=== PATIENT | male | born 1950 | race Caucasian/White ===

== ENCOUNTER 2020-05-05 00:35 | Outpatient (CLI) | payer MEDICARE, SELFPAY ==
[2020-05-05 17:56] LABS: SARS-CoV-2 RNA PCR Negative
== END 2020-05-05 00:36 | disposition home or self-care (01) ==
LOC: ANHCOVIDDT 00:35
PROVIDERS: PCP Internal Medicine; Visit Provider Internal Medicine Gastroenterology
DX: Z01.818 Encounter for other preprocedural examination (principal); Z11.59 Encounter for screening for other viral diseases
CPT/HCPCS: 87635; C9803; U0003

== ENCOUNTER 2020-05-07 02:06 | Day surgery (SDC) | payer MEDICARE, SELFPAY ==
[2020-05-01 09:55] VITALS: BMI 27.9
[2020-05-07 06:24] VITALS: BP 124/78; PULSE 68; RESP 17; TEMP 36.6; O2SAT 99; BMI 27.9
[2020-05-07] MEDS: LACTATED RINGERS 1,000 ML 150 ML IV CONT (06:28)
--- NOTE | 2020-05-07 07:08 | P.HP_ITS ---
History of Present Illness History of Present Illness Consent: Risks, benefits, and alternatives have been discussed and questions answered. Patient agrees to proceed with procedure. Chief complaint: Fam Hx Colon Ca Narrative: Zay Arriaza is a 70 year old W male Referred for screening colonoscopy secondary history of colonic polyps. Last colonoscopy was over 3 years ago at which time multiple small adenomatous polyps were removed. There is no known family history of colon cancer. No interval changes in patient's health [facility] Past Medical History Medical History (Updated 05/07/20 @ 07:11 by Tommy Mills MD) Dyslipidemia Hypertension Spider bite Surgical History Surgical History (Updated 05/07/20 @ 07:11 by Tommy Mills MD) H/O nasal septoplasty H/O right knee surgery Previous back surgery Social History Social History Gender identity (if verbalized by the patient): Male Meds Home Medications and Allergies Home Medications Medication Instructions Recorded Confirmed Type aspirin 81 mg PO DAILY 05/01/20 05/07/20 History atorvastatin 20 mg PO DAILY 05/01/20 05/07/20 History duloxetine 60 mg PO DAILY 05/01/20 05/07/20 History fenofibrate nanocrystallized 145 mg PO DAILY 05/01/20 05/07/20 History hydrochlorothiazide 12.5 mg PO DAILY 05/01/20 05/07/20 History labetalol 200 mg PO DAILY 05/01/20 05/07/20 History Allergies Allergy/AdvReac Type Severity Reaction Status Date / Time No Known Allergies Allergy Mild Verified 05/07/20 06:17 Vital Signs Vital Signs - 24 hr 05/07/20 06:24 Temperature 36.6 C Pulse Rate 68 Respiratory Rate 17 Blood Pressure 124/78 Pulse Oximetry 99 Exam Const: Orientation/consciousness: patient oriented x3 Resp: Auscultation: clear to auscultation bilaterally Cardio: Rate: regular rate Rhythm: regular rhythm Heart sounds: no murmurs GI: GI Palp: Yes Soft to palpation, No Tenderness to palpation present (GI), Yes No hepatosplenomegaly present and No Palpable mass present Auscultation: normal bowel sounds Neuro: General: patient oriented x3 and no focal motor deficits Extrem: General: no pedal edema Assessment and Plan Additional Plan screening colonoscopy secondary history of colonic polyps
--- NOTE | 2020-05-07 07:12 | WPDANESEPPF ---
Anes - Initial Pre Proc Eval Procedure: Operation Date: 05/07/20 07:30 Proposed Procedures p Screening Colonoscopy - Tommy Mills MD Date/Time: 05/07/20 07:12 Surgeon: Tommy Mills MD Pre Op Diagnosis: Fam Hx Colon Ca Patient Data Age: 70 Gender: M Height: 6 ft 1 in Weight: 96 kg Last Vital Signs Temp 97.9 F 05/07/20 06:24 Pulse 68 05/07/20 06:24 Resp 17 05/07/20 06:24 BP 124/78 05/07/20 06:24 Pulse Ox 99 05/07/20 06:24 Allergies Allergy/AdvReac Type Severity Reaction Status Date / Time No Known Allergies Allergy Mild Verified 05/07/20 06:17 Home Medications Medication Instructions Recorded Confirmed Type aspirin 81 mg PO DAILY 05/01/20 05/07/20 History atorvastatin 20 mg PO DAILY 05/01/20 05/07/20 History duloxetine 60 mg PO DAILY 05/01/20 05/07/20 History fenofibrate nanocrystallized 145 mg PO DAILY 05/01/20 05/07/20 History hydrochlorothiazide 12.5 mg PO DAILY 05/01/20 05/07/20 History labetalol 200 mg PO DAILY 05/01/20 05/07/20 History Patient hx anesthesia problems: none Family hx anesthesia problems: none PMFSH Past Medical History Medical History (Updated 05/07/20 @ 07:11 by Tommy Mills MD) Dyslipidemia Hypertension Spider bite Surgical History Surgical History (Updated 05/07/20 @ 07:11 by Tommy Mills MD) H/O nasal septoplasty H/O right knee surgery Previous back surgery Social History Social History Gender identity (if verbalized by the patient): Male Anes - Eval Final PreProcedure Day of Procedure 05/07/20 07:12 Patient weight: overweight Heart: regular rate and rhythm Lungs: clear to auscultation Airway: Mallampati scale Last oral intake: >/= 8 hours ASA classification: III Emergent: no Anesthetic plan: proceed Anesthesia type and monitoring: general GIVS and standard monitoring Informed Consent: The patient's anesthetic plan and its attendant risks and benefits were discussed with the patient/family/POA. Questions were solicited and answers provided to the satisfaction of the patient/family/POA.
[2020-05-07] MEDS: SIMETHICONE ORAL SUSPENSION 20 MG/0.3 ML 30 ML BOTTLE 0.6 ML IRRIGATION (07:52)
[2020-05-07 07:58] VITALS: BP 117/70; PULSE 68; RESP 16; O2SAT 96
[2020-05-07] MEDS: CENTRAL LINE FLUSH 10 ML XX (08:01)
[2020-05-07 08:08] VITALS: BP 131/80; PULSE 64; RESP 15; O2SAT 100
[2020-05-07 08:18] VITALS: BP 136/83; PULSE 60; RESP 15; O2SAT 100
== END 2020-05-07 08:30 | disposition home or self-care (01) ==
PROVIDERS: PCP Internal Medicine; Visit Provider Internal Medicine Gastroenterology
PROC: 0DJD8ZZ Inspection of Lower Intestinal Tract, Via Natural or Artificial Opening Endoscopic (ICD-10-PCS; CPT 45378; principal; 2020-05-07 07:30)
DX: Z12.11 Encounter for screening for malignant neoplasm of colon (principal); D12.2 Benign neoplasm of ascending colon; K62.1 Rectal polyp; K64.8 Other hemorrhoids; K64.4 Residual hemorrhoidal skin tags; Z80.0 Family history of malignant neoplasm of digestive organs; I10 Essential (primary) hypertension; E78.5 Hyperlipidemia, unspecified; Z79.82 Long term (current) use of aspirin
CPT/HCPCS: 45385; 45381; 88305; J2704; J7120

== ENCOUNTER 2021-08-03 11:24 | Outpatient (CLI) | payer MEDICARE, SELFPAY ==
[2021-08-03 11:47] LABS: Basophils Absolute Auto 0.1 K/mm3 (0.0-0.1); Basophils Percent Auto 0.7 % (0.2-1.2); Eosinophils Absolute Auto 0.1 K/mm3 (0-0.3); Eosinophils Percent Auto 1.4 % (0-4.4); Hematocrit 36.7 % (42.0-52.0); Hemoglobin 11.9 g/dL (14.0-18.0); Immature Granulocyte Absolute 0.02 K/mm3 (0.00-0.031); Immature Granulocyte Percent A 0.3 % (0-0.5); Lymphocytes Absolute Auto 1.75 K/mm3 (0.9-3.2); Lymphocytes Percent Auto 24.2 % (18.3-44.2); Mean Corpuscular HGB Conc 32.4 g/dl (32-36); Mean Corpuscular Hemoglobin 30.3 pg (26-34); Mean Corpuscular Volume 93.4 fl (80-100); Mean Platelet Volume 10.5 fl (7.4-10.4); Monocytes Absolute Auto 0.7 K/mm3 (0.1-0.6); Neutrophils Absolute Auto 4.6 K/mm3 (1.3-6.7); Neutrophils Percent Auto 63.4 % (45.5-73.1); Platelet Count Result 211 k/mm3 (150-375); Red Blood Count 3.93 M/mm3 (4.6-6.20); Red Cell Distribution Width 13.3 % (11.5-14.5); White Blood Count 7.2 K/mm3 (4.5-10.0)
[2021-08-03 12:29] LABS: Alanine Aminotransferase 18 U/L (4-50); Albumin Level 4.6 g/dL (3.5-5.1); Alkaline Phosphatase 50 U/L (38-126); Anion Gap 9 mmol/L (8-16); Aspartate Amino Transferase 30 U/L (17-59); Bilirubin,Total 0.5 mg/dL (0.2-1.3); Blood Urea Nitrogen 24 mg/dL (9-20); Calcium 9.9 mg/dL (8.4-10.2); Carbon Dioxide 27 mmol/L (22-30); Chloride 104 mmol/L (98-107); Estimated Glomerular Filt Rate 60; Glucose 96 mg/dL (65-110); Potassium 4.3 mmol/L (3.4-5.0); Sodium 140 mmol/L (137-145)
[2021-08-03 12:35] LABS: Immunoglobulin A 138 mg/dL (70-400); Immunoglobulin G 738 mg/dL (700-1600); Immunoglobulin M 94 mg/dL (40-230)
[2021-08-03 13:35] LABS: Folic Acid 9.4 ng/mL (2.76->20)
[2021-08-03 16:29] LABS: Iron 81 ug/dL (49-181)
[2021-08-03 16:37] LABS: Percent Iron Saturation 22 % (20-50)
[2021-08-07 04:43] LABS: Kappa\\Lambda Light Chains 1.29 (0.26-1.65); Lambda Light Chain 26.2 mg/L (5.7-26.3)
[2021-08-07 05:59] LABS: Albumin 4.2 g/dL (3.8-4.8); Alpha 1 Globulin 0.3 g/dL (0.2-0.3); Alpha 2 Globulin 0.7 g/dL (0.5-0.9); Beta 1 Globulin 0.5 g/dL (0.4-0.6); Gamma Globulin 0.8 g/dL (0.8-1.7); Protein, Total 6.8 g/dL (6.1-8.1)
== END 2021-08-03 11:25 | disposition home or self-care (01) ==
LOC: ANHLAB 11:26
PROVIDERS: PCP Internal Medicine; Visit Provider Internal Medicine Hematology & Oncology
DX: D64.9 Anemia, unspecified (principal); D72.9 Disorder of white blood cells, unspecified
CPT/HCPCS: 36415; 80053; 82607; 82728; 82746; 82784; 83540; 83550; 83883; 84155; 84165; 85025

== ENCOUNTER 2021-11-15 11:37 | Outpatient (CLI) | payer MEDICARE, SELFPAY ==
[2021-11-15 11:58] LABS: Basophils Percent Auto 0.5 % (0.2-1.2); Eosinophils Absolute Auto 0.1 K/mm3 (0-0.3); Eosinophils Percent Auto 1.3 % (0-4.4); Hematocrit 39.8 % (42.0-52.0); Hemoglobin 12.9 g/dL (14.0-18.0); Immature Granulocyte Absolute 0.01 K/mm3 (0.00-0.031); Immature Granulocyte Percent A 0.1 % (0-0.5); Lymphocytes Absolute Auto 2.06 K/mm3 (0.9-3.2); Lymphocytes Percent Auto 26.1 % (18.3-44.2); Mean Corpuscular HGB Conc 32.4 g/dl (32-36); Mean Corpuscular Hemoglobin 31.1 pg (26-34); Mean Corpuscular Volume 95.9 fl (80-100); Mean Platelet Volume 10.3 fl (7.4-10.4); Monocytes Absolute Auto 0.9 K/mm3 (0.1-0.6); Monocytes Percent Auto 11.3 % (2.6-8.5); Neutrophils Absolute Auto 4.8 K/mm3 (1.3-6.7); Neutrophils Percent Auto 60.7 % (45.5-73.1); Platelet Count Result 185 k/mm3 (150-375); Red Blood Count 4.15 M/mm3 (4.6-6.20); White Blood Count 7.9 K/mm3 (4.5-10.0)
[2021-11-15 13:44] LABS: Iron 90 ug/dL (49-181)
[2021-11-15 13:52] LABS: Anion Gap 6 mmol/L (8-16); Blood Urea Nitrogen 24 mg/dL (9-20); Calcium 9.9 mg/dL (8.4-10.2); Carbon Dioxide 27 mmol/L (22-30); Chloride 102 mmol/L (98-107); Estimated Glomerular Filt Rate > 60; Glucose 102 mg/dL (65-110); Potassium 4.3 mmol/L (3.4-5.0); Sodium 135 mmol/L (137-145)
[2021-11-15 13:55] LABS: Percent Iron Saturation 27 % (20-50)
[2021-11-15 15:00] LABS: Folic Acid 19.1 ng/mL (2.76->20); Vitamin B12 > 1000.0 pg/mL (239-931)
== END 2021-11-15 11:38 | disposition home or self-care (01) ==
LOC: ANHLAB 11:40
PROVIDERS: PCP Internal Medicine; Visit Provider Internal Medicine Hematology & Oncology
DX: D64.9 Anemia, unspecified (principal)
CPT/HCPCS: 36415; 80048; 82607; 82728; 82746; 83540; 83550; 85025

== ENCOUNTER 2023-04-13 17:36 | Emergency (ER) | payer MEDICARE, SELFPAY ==
[2023-04-13] VITALS (9 sets, daily range): BP systolic 104–132; BP diastolic 68–77; PULSE 58–90; RESP 16–18; TEMP 36.2; O2SAT 95–99
--- NOTE | ~2023-04-13 | CT_ITS ---
EXAMINATION: CT abdomen pelvis wo con DATE: 04/13/2023 19:07 INDICATION: Abdominal pain, diarrhea. Recent diagnosis of pancreatitis. TECHNIQUE: Computed tomography (CT) of the abdomen and pelvis was performed without intravenous contr ast. Automated exposure control and iterative reconstruction technique were employed. Exam dose: 509 .92 mGy-cm total exam DLP. COMPARISON: None. FINDINGS: Mild bilateral lower lobe dependent discoid atelectasis or scarring. Normal heart size. No pericardial or pleural effusion. Calcified hepatic and splenic granulomas consistent with old granulomatous disease. No hepatic space- occupying mass lesion is evident. The gallbladder appears unremarkable. No bile duct dilatation. Normal splenic size. There are extensive calcifications throughout the pancreas, consistent with chronic pancreatitis. No pancreatic mass lesion or pancreatic duct dilatation is evident. Normal morphology of the adrenal glands. No renal mass lesion or hydroureteronephrosis. The urinary bladder is unremarkable. Prostate enlargem ent and calcifications. There is atherosclerotic calcification but normal caliber of the abdominal aorta. Celiac and superior mesenteric and renal artery calcifications. No intraperitoneal or retroperitoneal or pelvic mass les ion or adenopathy or ascites is detected. Normal appendix. No bowel obstruction, bowel wall thickening, pneumatosis or intraperitoneal free air is detected. Severe multilevel degenerative disc disease of lumbar spine. Degenerative change of the thoracic spin e. Bilateral hip osteoarthritis. IMPRESSION: Chronic pancreatitis Reviewed, dictated and finalized at [facility]. Reviewed, dictated and finalized at [facility]. IMPRESSION: Chronic pancreatitis
--- NOTE | 2023-04-13 18:25 | PC.NURSE ---
Dr. Lee at bedside to assess pt.
[2023-04-13 18:33] LABS: Basophils Absolute Auto 0.1 K/mm3 (0.0-0.1); Basophils Percent Auto 0.8 % (0.2-1.2); Eosinophils Absolute Auto 0.1 K/mm3 (0-0.3); Eosinophils Percent Auto 1.6 % (0-4.4); Hematocrit 36.6 % (42.0-52.0); Hemoglobin 11.8 g/dL (14.0-18.0); Immature Granulocyte Absolute 0.02 K/mm3 (0.00-0.031); Immature Granulocyte Percent A 0.3 % (0-0.5); Lymphocytes Absolute Auto 1.92 K/mm3 (0.9-3.2); Lymphocytes Percent Auto 26.1 % (18.3-44.2); Mean Corpuscular HGB Conc 32.2 g/dl (32-36); Mean Corpuscular Hemoglobin 30.7 pg (26-34); Mean Corpuscular Volume 95.3 fl (80-100); Mean Platelet Volume 10.5 fl (7.4-10.4); Monocytes Absolute Auto 0.8 K/mm3 (0.1-0.6); Monocytes Percent Auto 10.9 % (2.6-8.5); Neutrophils Absolute Auto 4.5 K/mm3 (1.3-6.7); Neutrophils Percent Auto 60.3 % (45.5-73.1); Platelet Count Result 177 k/mm3 (150-375); Red Blood Count 3.84 M/mm3 (4.6-6.20); Red Cell Distribution Width 13.2 % (11.5-14.5); White Blood Count 7.4 K/mm3 (4.5-10.0)
[2023-04-13 18:43] LABS: Alanine Aminotransferase 36 U/L (6-50); Albumin Level 4.4 g/dL (3.5-5.1); Alkaline Phosphatase 69 U/L (38-126); Anion Gap 6 mmol/L (8-16); Aspartate Amino Transferase 39 U/L (17-59); Bilirubin,Total 0.9 mg/dL (0.2-1.3); Blood Urea Nitrogen 22 mg/dL (9-20); Calcium 9.3 mg/dL (8.4-10.2); Carbon Dioxide 23 mmol/L (22-30); Chloride 107 mmol/L (98-107); Estimated CRCL calculation 73 ml/min; Estimated Glomerular Filt Rate > 60; Glucose 102 mg/dL (65-110); Lipase 96 U/L (23-300); Magnesium 1.9 mg/dL (1.6-2.3); Sodium 136 mmol/L (137-145)
[2023-04-13 18:54] LABS: Appearance Urine Clear (Clear); Bilirubin Urine Negative (Negative); Blood Urine Negative (Negative); Color Urine Yellow (Yellow); Glucose Urine UA Negative (Negative); Ketones Urine Negative (Negative); Leukocyte Esterase Ur Negative LEU/UL (Negative); Nitrate Urine Negative (Negative); Protein Urine Negative (Negative); Specific Grav Ur 1.018 (1.001-1.035); Urobilinogen Urine 0.2 mg/dL (<2.0)
[2023-04-13] MEDS: SODIUM CHLORIDE 0.9% IV 1,000 ML 999 ML IV CONT (19:00)
--- NOTE | 2023-04-13 19:00 | PC.NURSE ---
pt taken to CT at this time
[2023-04-13 19:04] LABS: Add Urine Microscopic? NO
--- NOTE | 2023-04-13 19:12 | ED.RECABL ---
HPI - Recheck/Abnormal Lab/Rx General Chief Complaint: Recheck/Abnormal Lab/Rx Stated Complaint: abn labs Time Seen by Provider: 04/13/23 18:01 Source: patient, RN notes reviewed and old records reviewed Mode of arrival: ambulatory Limitations: no limitations History of Present Illness HPI narrative: This is a 72 year old male who presents for evaluation of possible pancreatitis. Patient states he has been dealing with weeks of diarrhea and lower abdominal pain. He reports having 3 episodes of diarrhea in the morning. He denies vomiting, fever, or chills. He was having intermittent lower abdominal pain but he is not having pain today. He had CT scan at an outside hospital today and he was told he had pancreatitis. He refused to be evaluated at hospital were scan that was done. He denies upper abdominal pain or back pain. He denies alcohol use or history of pancreatitis. Related Data Home Medications Medication Instructions Recorded Confirmed aspirin 81 mg tablet,delayed 81 mg PO DAILY 05/01/20 05/07/20 release atorvastatin 20 mg tablet 20 mg PO DAILY 05/01/20 05/07/20 duloxetine 60 mg capsule,delayed 60 mg PO DAILY 05/01/20 05/07/20 release fenofibrate nanocrystallized 145 145 mg PO DAILY 05/01/20 05/07/20 mg tablet hydrochlorothiazide 12.5 mg tablet 12.5 mg PO DAILY 05/01/20 05/07/20 labetalol 200 mg tablet 200 mg PO DAILY 05/01/20 05/07/20 Allergies Allergy/AdvReac Type Severity Reaction Status Date / Time No Known Allergies Allergy Mild Verified 04/13/23 17:39 Review of Systems Review of Systems: All systems reviewed & are unremarkable except as noted in HPI and below PMFSH Past Medical History Medical History Dyslipidemia Hypertension Spider bite Surgical History Surgical History H/O nasal septoplasty H/O right knee surgery Previous back surgery Social History Social History Gender identity (if verbalized by the patient): Male Exam Const: General: no acute distress and alert Nutritional Appearance: well nourished Orientation/consciousness: patient oriented x3 Limitations: no limitations HENMT: Head: normal to inspection Eyes: EOM: EOMs intact bilaterally Chest: Chest palpation & inspection: normal inspection of the chest Resp: Effort & Inspection: normal respiratory effort Auscultation: clear to auscultation bilaterally Cardio: Rate: regular rate Rhythm: regular rhythm Heart sounds: no murmurs GI: GI Palp: Yes Soft to palpation, No Tenderness to palpation present (GI), No Guarding due to palpation present (GI) and No Rigid due to palpation Auscultation: normal bowel sounds Skin: General skin exam: normal color Rashes: no rashes Wounds: no wounds Neuro: General: patient oriented x3, moves all extremities and CN's II-XI intact bilaterally Extrem: General: normal to inspection Psych: Mental Status: mental status grossly normal Affect: normal affect Attitude: cooperative Course Reevaluation(s) Reevaluation #1: I Discussed with patient CT showing chronic pancreatitis but no acute findings. I recommend follow up with GI for his diarrhea. no fever, no leukocytosis, no colitis on CT. Date: 04/13/23 Time: 20:04 Vital Signs Vital signs: Vital Signs Temperature 97.2 F L 04/13/23 17:37 Pulse Rate 66 04/13/23 17:37 Respiratory Rate 18 04/13/23 17:37 Blood Pressure 104/68 04/13/23 17:37 Pulse Oximetry 99 04/13/23 17:37 Temperature 97.2 F L 04/13/23 17:37 Pulse Rate 58 L 04/13/23 20:25 Respiratory Rate 16 04/13/23 20:25 Blood Pressure 132/72 04/13/23 20:25 Pulse Oximetry 98 04/13/23 20:25 MDM - Recheck/Abnormal Lab/Rx Medical Records Attestation: I reviewed the patient's medical records. Lab Data Attestation: I reviewed the patient's lab results. 04/13/23 18:26
--- NOTE | 2023-04-13 19:12 | PC.NURSE ---
Patient reports given to HUI Ramsay. All questions answered and care of patient assumed.
== END 2023-04-13 20:26 | disposition home or self-care (01) ==
PROVIDERS: Emergency Provider General Practice; PCP Internal Medicine
DX: K86.1 Other chronic pancreatitis (principal); E78.5 Hyperlipidemia, unspecified; I10 Essential (primary) hypertension
CPT/HCPCS: 36415; 74176; 80053; 81003; 83690; 83735; 85025; 96360; 99284; J7030

== ENCOUNTER 2023-06-14 08:06 | Outpatient (NON) | payer MEDICARE, SELFPAY ==
[2023-06-21 22:38] LABS: Pancreatic Elastase, Stool <15 mcg/g
== END 2023-06-14 08:07 | disposition home or self-care (01) ==
LOC: ANHLAB 08:07
PROVIDERS: PCP Internal Medicine; Visit Provider Internal Medicine Gastroenterology
DX: R19.7 Diarrhea, unspecified (principal); R63.4 Abnormal weight loss; K86.1 Other chronic pancreatitis
CPT/HCPCS: 82653

== ENCOUNTER 2023-07-12 15:47 | Outpatient (CLI) | payer MEDICARE, SELFPAY ==
[2023-07-12 16:33] LABS: Basophils Percent Auto 0.5 % (0.2-1.2); Eosinophils Absolute Auto 0.1 K/mm3 (0-0.3); Hematocrit 37.5 % (42.0-52.0); Hemoglobin 12.2 g/dL (14.0-18.0); Immature Granulocyte Absolute 0.03 K/mm3 (0.00-0.031); Immature Granulocyte Percent A 0.4 % (0-0.5); Lymphocytes Absolute Auto 2.17 K/mm3 (0.9-3.2); Lymphocytes Percent Auto 27.5 % (18.3-44.2); Mean Corpuscular HGB Conc 32.5 g/dl (32-36); Mean Corpuscular Hemoglobin 30.3 pg (26-34); Mean Corpuscular Volume 93.3 fl (80-100); Mean Platelet Volume 10.4 fl (7.4-10.4); Monocytes Absolute Auto 1.1 K/mm3 (0.1-0.6); Monocytes Percent Auto 13.5 % (2.6-8.5); Neutrophils Absolute Auto 4.5 K/mm3 (1.3-6.7); Neutrophils Percent Auto 57.1 % (45.5-73.1); Platelet Count Result 256 k/mm3 (150-375); Red Blood Count 4.02 M/mm3 (4.6-6.20); White Blood Count 7.9 K/mm3 (4.5-10.0)
[2023-07-12 16:36] LABS: Appearance Urine Clear (Clear); Bilirubin Urine Negative (Negative); Blood Urine Negative (Negative); Color Urine Yellow (Yellow); Glucose Urine UA 3+ mg/dL (Negative); Ketones Urine Negative (Negative); Leukocyte Esterase Ur Negative LEU/UL (Negative); Nitrate Urine Negative (Negative); Protein Urine Negative (Negative); Specific Grav Ur 1.022 (1.001-1.035); Urobilinogen Urine 0.2 mg/dL (<2.0)
[2023-07-12 16:40] LABS: Add Urine Microscopic? NO
[2023-07-12 16:58] LABS: Alanine Aminotransferase 64 U/L (6-50); Albumin Level 4.8 g/dL (3.5-5.1); Alkaline Phosphatase 71 U/L (38-126); Amylase 86 U/L (30-110); Anion Gap 11 mmol/L (8-16); Aspartate Amino Transferase 59 U/L (17-59); Bilirubin,Total 0.7 mg/dL (0.2-1.3); Blood Urea Nitrogen 41 mg/dL (9-20); Calcium 9.5 mg/dL (8.4-10.2); Carbon Dioxide 20 mmol/L (22-30); Chloride 106 mmol/L (98-107); Cholesterol 131 mg/dL (0-200); Creatine Kinase 179 U/L (55-170); Estimated Glomerular Filt Rate > 60; Glucose 103 mg/dL (65-110); HDL Direct 29 mg/dL; Lipase 76 U/L (23-300); Potassium 4.1 mmol/L (3.4-5.0); Sodium 137 mmol/L (137-145); Triglycerides 162 mg/dL (<150)
[2023-07-12 17:09] LABS: LDL Cholesterol Direct 78 mg/dL; Prealbumin 24.3 mg/dL (17.6-36.0)
[2023-07-12 17:26] LABS: Iron 55 ug/dL (49-181)
[2023-07-12 17:35] LABS: Percent Iron Saturation 17 % (20-50)
[2023-07-12 17:46] LABS: Hemoglobin A1C 5.9 % (<5.7)
[2023-07-12 17:55] LABS: Free T4 Free Thyroxine 1.11 ng/mL (0.78-2.19); Vitamin D 25 Hydroxy 48.1 ng/mL
[2023-07-12 18:15] LABS: Folic Acid 17.7 ng/mL (2.76->20); Vitamin B12 > 1000.0 pg/mL (239-931)
[2023-07-16 00:31] LABS: Aldolase 6.9 U/L (<=8.1)
[2023-07-16 10:12] LABS: Vitamin B1 26 nmol/L (8-30)
[2023-07-16 13:48] LABS: GGT 19 U/L (3-70)
[2023-07-16 13:50] LABS: Vitamin B6 27.3 ng/mL (2.1-21.7)
[2023-07-19 17:17] LABS: Vitamin B2 29.8 nmol/L (6.2-39.0)
== END 2023-07-12 15:48 | disposition home or self-care (01) ==
LOC: ANHLAB 15:56
PROVIDERS: PCP Internal Medicine; Visit Provider Internal Medicine
DX: E53.9 Vitamin B deficiency, unspecified (principal); R53.1 Weakness; Z79.899 Other long term (current) drug therapy; Z13.29 Encounter for screening for other suspected endocrine disorder; E78.5 Hyperlipidemia, unspecified; I10 Essential (primary) hypertension; E55.9 Vitamin D deficiency, unspecified; E11.9 Type 2 diabetes mellitus without complications; K85.90 Acute pancreatitis without necrosis or infection, unspecified; R63.4 Abnormal weight loss; R53.83 Other fatigue; Z76.89 Persons encountering health services in other specified circumstances; E53.8 Deficiency of other specified B group vitamins
CPT/HCPCS: 36415; 80053; 80061; 81003; 82085; 82150; 82306; 82550; 82607; 82728; 82746; 82977; 83036; 83540; 83550; 83690; 84134; 84207; 84252; 84425; 84439; 84443; 85025

== ENCOUNTER 2023-07-14 11:29 | Emergency (ER) | payer MEDICARE, SELFPAY ==
[2023-07-14] VITALS (10 sets, daily range): BP systolic 76–147; BP diastolic 57–103; PULSE 59–126; RESP 12–18; TEMP 36.3; O2SAT 99–100
--- NOTE | ~2023-07-14 | XR_ITS ---
EXAMINATION: XR forearm LT 2V INDICATION: Left forearm laceration TECHNIQUE: Two views of the left forearm are obtained. COMPARISON: None available FINDINGS: Bone alignment is normal. There is no fracture. There is mild osteoarthritis of the wrist a nd elbow. There is a posterior soft tissue laceration of the mid forearm without underlying osseous a bnormality or radiopaque foreign body. IMPRESSION: 1. Posterior soft tissue laceration of the mid forearm without underlying osseous abnormality or radi opaque foreign body. Reviewed, dictated and finalized at [facility]. IMPRESSION: 1. Posterior soft tissue laceration of the mid forearm without underlying osseo us abnormality or radiopaque foreign body.
--- NOTE | ~2023-07-14 | XR_ITS ---
XR chest 2V DATE: 07/14/2023 12:41 INDICATION: Syncopal episode today. Hypertension. Weakness. TECHNIQUE: AP and lateral views COMPARISON: None FINDINGS: Normal heart size. No hilar or mediastinal enlargement. Mild infiltrate in the left lower lung; otherwise no pulmonary infiltrate or consolidation, pleural e ffusion or pulmonary vascular congestion or pneumothorax is detected. IMPRESSION: Mild infiltrate in the left lower lung Reviewed, dictated and finalized at [facility].
--- NOTE | ~2023-07-14 | CT_ITS ---
EXAMINATION: CTA chest PE protocol DATE: 07/14/2023 13:35 INDICATION: Dizziness. Syncopal episode. Elevated d-dimer. TECHNIQUE: Computed tomography angiography (CTA) of the chest was performed with 100 mL Omnipaque-350 intravenous contrast timed to evaluate the pulmonary arteries. Coronal maximum intensity projection 3D-reconstructions were created by the technologist. Automated exposure control and iterative reconst ruction technique were employed. Exam dose: 507.68 mGy-cm total exam DLP. COMPARISON: 07/14/2023 AP and lateral chest FINDINGS: There is diagnostic contrast enhancement of the pulmonary arteries and no evidence of pulmo nary embolism. No thoracic aortic aneurysm or dissection. Normal heart size. No pericardial or pleural effusion. No hilar or mediastinal mass lesion or lymphadenopathy. Calcified left hilar nodes and calcified left upper lobe pulmonary granulomas. Mild discoid atelectasis or scarring in the posterolateral left upper lobe adjacent to the calcified granulomas. No pulmonary infiltrate or consolidation or pulmonary mass lesion is noted otherwise. Normal morphology of the adrenal glands. 1.4 cm right renal cyst. There are calcified hepatic and splenic granulomas There are extensive pancreatic calcifications consistent with chronic pancreatitis. No suspicious osteolytic or osteoblastic lesions. Degenerative spurring of the thoracic and upper lum bar spine. IMPRESSION: No evidence of pulmonary embolism Old granulomatous disease Chronic pancreatitis Reviewed, dictated and finalized at [facility]. Reviewed, dictated and finalized at [facility].
--- NOTE | 2023-07-14 11:37 | ECG_ITS ---
Measurements Intervals [place] Rate: 57 P: TN: 0 QRS: 18 QRSD: 103 T: 44 QT: 410 QTc: 400 Interpretive Statements SINUS RHYTHM ABNORMAL RHYTHM ECG NO PREVIOUS ECG AVAILABLE FOR COMPARISON Electronically Signed On 07-14-2023 14:32:09 CDT by Manuel Soria M.D.
[2023-07-14 11:51] LABS: Basophils Percent Auto 0.2 % (0.2-1.2); Eosinophils Absolute Auto 0.1 K/mm3 (0-0.3); Eosinophils Percent Auto 0.6 % (0-4.4); Hematocrit 37.1 % (42.0-52.0); Immature Granulocyte Absolute 0.03 K/mm3 (0.00-0.031); Immature Granulocyte Percent A 0.4 % (0-0.5); Lymphocytes Absolute Auto 1.54 K/mm3 (0.9-3.2); Lymphocytes Percent Auto 19.1 % (18.3-44.2); Mean Corpuscular HGB Conc 32.3 g/dl (32-36); Mean Corpuscular Hemoglobin 30.5 pg (26-34); Mean Corpuscular Volume 94.2 fl (80-100); Mean Platelet Volume 10.2 fl (7.4-10.4); Neutrophils Absolute Auto 5.4 K/mm3 (1.3-6.7); Neutrophils Percent Auto 67.7 % (45.5-73.1); Platelet Count Result 234 k/mm3 (150-375); Red Blood Count 3.94 M/mm3 (4.6-6.20); Red Cell Distribution Width 13.2 % (11.5-14.5); White Blood Count 8.1 K/mm3 (4.5-10.0)
[2023-07-14 12:03] LABS: Alanine Aminotransferase 55 U/L (6-50); Albumin Level 4.2 g/dL (3.5-5.1); Alkaline Phosphatase 64 U/L (38-126); Anion Gap 9 mmol/L (8-16); Aspartate Amino Transferase 44 U/L (17-59); Bilirubin,Total 1.1 mg/dL (0.2-1.3); Blood Urea Nitrogen 34 mg/dL (9-20); Calcium 9.2 mg/dL (8.4-10.2); Carbon Dioxide 19 mmol/L (22-30); Chloride 109 mmol/L (98-107); Estimated CRCL calculation 62 ml/min; Estimated Glomerular Filt Rate > 60; Glucose 131 mg/dL (65-110); Potassium 4.2 mmol/L (3.4-5.0); Sodium 137 mmol/L (137-145)
[2023-07-14 12:46] LABS: Magnesium 2.4 mg/dL (1.6-2.3)
[2023-07-14] MEDS: LACTATED RINGERS 1,000 ML 999 ML IV CONT (12:47)
[2023-07-14 12:58] LABS: INR 1.1; Prothrombin Time 14.5 Seconds (11.1-14.7); Troponin I < 0.012 ng/mL (0.000-0.034)
[2023-07-14 12:59] LABS: Partial Thromboplastin Time 33.8 SECONDS (22.3-36.8)
[2023-07-14 13:03] LABS: D Dimer 0.73 ug/mL (<0.48)
--- NOTE | 2023-07-14 13:55 | ED.DIZZY ---
HPI - Dizziness General Chief Complaint: Syncope Stated Complaint: syncopal episode/laceration Time Seen by Provider: 07/14/23 12:02 Source: patient, RN notes reviewed and old records reviewed Mode of arrival: wheelchair Limitations: no limitations History of Present Illness HPI Narrative: This is a 73 year old male with history of hypertension who presents for evaluation of dizziness. Patient states he was trying to get up from bed when he became dizzy and fell. He reports he hit his arm . He denies headache or LOC. He states he tried to get up again and he was dizzy and diaphoretic. He states he has been dealing with generalized weakness for weeks, and his new PCP, Dr. Anguiano cut his labetalol in half. He states he feels fine now. He states he was told he had low blood pressure with standing here but was not dizzy. He denies chest pain or shortness of breath. He has decreased appetite due to chronic GI, pancreatitis issues. Related Data Home Medications Medication Instructions Recorded Confirmed aspirin 81 mg tablet,delayed 81 mg PO DAILY 05/01/20 07/14/23 release atorvastatin 20 mg tablet 20 mg PO DAILY 05/01/20 07/14/23 duloxetine 60 mg capsule,delayed 60 mg PO DAILY 05/01/20 07/14/23 release fenofibrate nanocrystallized 145 145 mg PO DAILY 05/01/20 07/14/23 mg tablet labetalol 200 mg tablet 100 mg PO BID 07/12/23 07/14/23 Allergies Allergy/AdvReac Type Severity Reaction Status Date / Time metformin AdvReac Mild Diarrhea Verified 07/14/23 11:56 Review of Systems Constitutional: Constitutional: Reports weakness Cardiovascular: Cardiovascular: Denies syncope, Denies rapid heart rate, Denies irregular heart rhythm, Denies leg edema and Denies dyspnea Respiratory: Respiratory: Denies chest congestion, Denies hemoptysis, Denies excessive phlegm production and Denies dyspnea Gastrointestinal: Gastrointestinal: Denies abdominal pain, Denies hematochezia, Denies diarrhea and Denies vomiting Genitourinary: Genitourinary: Denies hematuria, Denies dysuria, Denies penile discharge and Denies testicular pain Musculoskeletal: Musculoskeletal: Denies joint swelling, Denies loss of height and Denies muscle weakness Neurologic: Reports dizziness, Denies syncope, Denies focal weakness and Reports weakness PMFSH Past Medical History Medical History Benign essential hypertension BMI 22.0-22.9, adult DM type 2 (diabetes mellitus, type 2) Dyslipidemia Encounter to establish care Hyperlipidemia Hypertension On snf drug therapy Pancreatitis Spider bite Surgical History Surgical History H/O nasal septoplasty H/O right knee surgery Previous back surgery Social History Social History Smoking status: Former smoker Second hand tobacco smoke exposure: Yes Alcohol intake: former Lack of Transportation: No Lack of Food: Never True Current Housing: I Have Housing Concerned About Future Housing: No Difficulty Paying Gas/Electric Bills: No Difficulty Paying for Meds: No Currently Unemployed: No Education: Trade/Vocational Certificate Difficulty w/ Childcare or Family Care: No Living arrangements: with family Gender identity (if verbalized by the patient): Male Exam Const: General: no acute distress and alert Nutritional Appearance: well nourished Orientation/consciousness: patient oriented x3 Limitations: no limitations HENMT: Head: normal to inspection Eyes: Conjunctivae: conjunctivae normal Pupils: Equal, round and reactive pupils present EOM: EOMs intact bilaterally Chest: Chest palpation & inspection: normal inspection of the chest Resp: Effort & Inspection: normal respiratory effort Auscultation: clear to auscultation bilaterally Cardio: Rate: regular rate Rhythm: regular rhythm Heart sounds: no murm
== END 2023-07-14 16:31 | disposition home or self-care (01) ==
PROVIDERS: Preventive Medicine Aerospace Medicine; Emergency Provider General Practice; PCP Internal Medicine
DX: I95.9 Hypotension, unspecified (principal); E86.0 Dehydration; S51.812A Laceration without foreign body of left forearm, initial encounter; I10 Essential (primary) hypertension; E11.9 Type 2 diabetes mellitus without complications; E78.5 Hyperlipidemia, unspecified; Z87.891 Personal history of nicotine dependence; Z79.82 Long term (current) use of aspirin; K86.1 Other chronic pancreatitis; W18.39XA Other fall on same level, initial encounter
CPT/HCPCS: 12002; 36415; 71046; 71275; 73090; 80053; 83735; 84484; 85025; 85380; 85610; 85730; 93005; 96360; 96361; 99284; J7120; Q9967

== ENCOUNTER 2023-08-25 00:46 | Day surgery (SDC) | payer MEDICARE, SELFPAY ==
[2023-08-14 09:18] VITALS: BMI 24.5
--- NOTE | 2023-08-23 08:59 | SUR.PREOP ---
Patient called regarding upcoming procedure. Reviewed preop instructions, appointment times, and procedure prep.
--- NOTE | 2023-08-24 15:10 | PM.HPGS ---
History of Present Illness History of Present Illness Consent: Risks, benefits, and alternatives have been discussed and questions answered. Patient agrees to proceed with procedure. Chief complaint: hx colon polyps, dysphagia Narrative: Zay Arriaza is a 73 year old male Who has been having dysphagia when swallowing and also has lost about 50 lb in the past year or 2. He has history of polyps having had a sessile polyp removed 3 years ago and is due for follow-up. he denies abdominal pain. Review of Systems Review of Systems: All systems reviewed & are unremarkable except as noted in HPI and below PMFSH Past Medical History Medical History Benign essential hypertension BMI 22.0-22.9, adult BMI 23.0-23.9, adult DM type 2 (diabetes mellitus, type 2) Dyslipidemia Encounter to establish care Follow up Hyperlipidemia Hypertension Nocturia On keno terminal operator drug therapy Pancreatitis Prostate cancer screening RLS (restless legs syndrome) Spider bite Syncope Surgical History Surgical History H/O nasal septoplasty H/O right knee surgery Previous back surgery Social History Social History Smoking status: Current some day smoker Second hand tobacco smoke exposure: Yes Substance use: current Substance use type: marijuana Other substance usage details: Smokes marijuana Last use: 08/13/23 Lack of Transportation: No Lack of Food: Never True Current Housing: I Have Housing Concerned About Future Housing: No Difficulty Paying Gas/Electric Bills: No Difficulty Paying for Meds: No Currently Unemployed: No Education: Trade/Vocational Certificate Difficulty w/ Childcare or Family Care: No Living arrangements: with family Gender identity (if verbalized by the patient): Male Meds Home Medications and Allergies Home Medications Medication Instructions Recorded Confirmed Type aspirin 81 mg tablet,delayed 81 mg PO DAILY 05/01/20 08/25/23 History release atorvastatin 20 mg tablet 20 mg PO DAILY 05/01/20 08/25/23 History fenofibrate nanocrystallized 145 145 mg PO DAILY 05/01/20 08/25/23 History mg tablet [id number]-[id number] 1 cap PO TID #90 caps 06/13/23 08/25/23 Rx 36,000-114,000-180,000 unit capsule,delay rel (Creon) tamsulosin 0.4 mg capsule 0.4 mg PO QHS #90 caps 07/21/23 08/25/23 Rx clonazepam 1 mg tablet 1 mg PO QHS RLS #90 tabs 08/10/23 08/25/23 Rx empagliflozin 10 mg tablet 10 mg PO DAILY #90 tabs 08/14/23 08/25/23 Rx (Jardiance) labetalol 100 mg tablet 50 mg PO BID 08/14/23 08/25/23 History duloxetine 60 mg capsule,delayed 60 mg PO DAILY #90 caps 08/16/23 08/25/23 Rx release Allergies Allergy/AdvReac Type Severity Reaction Status Date / Time metformin AdvReac Mild Diarrhea Verified 08/25/23 07:45 Exam Const: General: alert Orientation/consciousness: patient oriented x3 Resp: Auscultation: clear to auscultation bilaterally Cardio: Rhythm: regular rhythm GI: GI Palp: Yes Soft to palpation and No Tenderness to palpation present (GI) Neuro: General: patient oriented x3 Assessment and Plan Assessment and plan (1) Weight loss: Code(s): R63.4 - Abnormal weight loss Status: Acute Assessment and Plan: EGD with possible biopsy or dilatation or cautery. (2) Personal history of colonic polyps: Code(s): Z86.010 - Personal history of colonic polyps Status: Acute Assessment and Plan: Colonoscopy with possible biopsy or polypectomy or cautery or injection of substances.
[2023-08-25 07:49] VITALS: BP 118/70; PULSE 59; RESP 16; TEMP 36.2; O2SAT 100
[2023-08-25] MEDS: LACTATED RINGERS 1,000 ML 150 ML IV CONT (08:01)
[2023-08-25 08:06] LABS: Glucose Point of Care 110 mg/dl (65-105)
--- NOTE | 2023-08-25 08:22 | WPDANESEPPF ---
Anes - Initial Pre Proc Eval Procedure: Operation Date: 08/25/23 08:30 Proposed Procedures p Esophagogastroduodenoscopy & Colonoscopy - Omid Goldman MD Date/Time: 08/25/23 08:22 Surgeon: Omid Goldman MD Pre Op Diagnosis: hx colon polyps, dysphagia Patient Data Age: 73 Gender: M Height: 1.83 m Weight: 82.3 kg Last Vital Signs Temp 97.1 F L 08/25/23 07:49 Pulse 59 L 08/25/23 07:49 Resp 16 08/25/23 07:49 BP 118/70 08/25/23 07:49 Pulse Ox 100 08/25/23 07:49 O2 Del Method Room Air 08/25/23 07:49 Allergies Allergy/AdvReac Type Severity Reaction Status Date / Time metformin AdvReac Mild Diarrhea Verified 08/25/23 07:45 Home Medications Medication Instructions Recorded Confirmed Type aspirin 81 mg tablet,delayed 81 mg PO DAILY 05/01/20 08/25/23 History release atorvastatin 20 mg tablet 20 mg PO DAILY 05/01/20 08/25/23 History fenofibrate nanocrystallized 145 145 mg PO DAILY 05/01/20 08/25/23 History mg tablet [id number] 1 cap PO TID #90 caps 06/13/23 08/25/23 Rx 36,000-114,000-180,000 unit capsule,delay rel (Creon) tamsulosin 0.4 mg capsule 0.4 mg PO QHS #90 caps 07/21/23 08/25/23 Rx clonazepam 1 mg tablet 1 mg PO QHS RLS #90 tabs 08/10/23 08/25/23 Rx empagliflozin 10 mg tablet 10 mg PO DAILY #90 tabs 08/14/23 08/25/23 Rx (Jardiance) labetalol 100 mg tablet 50 mg PO BID 08/14/23 08/25/23 History duloxetine 60 mg capsule,delayed 60 mg PO DAILY #90 caps 08/16/23 08/25/23 Rx release Laboratory Tests 08/25/23 07:59 POC Capillary Glucose 110 H mg/dl (65-105) Patient hx anesthesia problems: none Family hx anesthesia problems: none Results Review: All pre-operative results and documents have been reviewed as part of the pre-operative evaluation. [facility] Past Medical History Medical History Benign essential hypertension BMI 22.0-22.9, adult BMI 23.0-23.9, adult DM type 2 (diabetes mellitus, type 2) Dyslipidemia Encounter to establish care Follow up Hyperlipidemia Hypertension Nocturia On terminal operator drug therapy Pancreatitis Prostate cancer screening RLS (restless legs syndrome) Spider bite Syncope Surgical History Surgical History H/O nasal septoplasty H/O right knee surgery Previous back surgery Social History Social History Smoking status: Current some day smoker Second hand tobacco smoke exposure: Yes Substance use: current Substance use type: marijuana Other substance usage details: Smokes marijuana Last use: 08/13/23 Lack of Transportation: No Lack of Food: Never True Current Housing: I Have Housing Concerned About Future Housing: No Difficulty Paying Gas/Electric Bills: No Difficulty Paying for Meds: No Currently Unemployed: No Education: Trade/Vocational Certificate Difficulty w/ Childcare or Family Care: No Living arrangements: with family Gender identity (if verbalized by the patient): Male Anes - Eval Final PreProcedure Day of Procedure 08/25/23 08:22 Patient weight: normal Heart: regular rate and rhythm Lungs: clear to auscultation Airway: Mallampati scale class II Neurological: alert and oriented Last oral intake: >/= 8 hours ASA classification: III Emergent: no Anesthetic plan: proceed Anesthesia type and monitoring: general GIVS and standard monitoring Results Review: All pre-operative results and documents have been reviewed as part of the pre-operative evaluation. Informed Consent: The patient's anesthetic plan and its attendant risks and benefits were discussed with the patient/family/POA. Questions were solicited and answers provided to the satisfaction of the patient/family/POA.
--- NOTE | 2023-08-25 09:05 | SUR.OPER ---
EGD ended at 858. Colonoscopy began at 903.
[2023-08-25 09:21] VITALS: BP 98/68; PULSE 62; RESP 17; O2SAT 100
[2023-08-25 09:31] VITALS: BP 120/72; PULSE 52; RESP 14; O2SAT 100
== END 2023-08-25 09:48 | disposition home or self-care (01) ==
PROVIDERS: PCP Internal Medicine; Visit Provider Internal Medicine Gastroenterology
PROC: 0DJ08ZZ Inspection of Upper Intestinal Tract, Via Natural or Artificial Opening Endoscopic (ICD-10-PCS; CPT 43235; principal; 2023-08-25 08:30)
DX: Z12.11 Encounter for screening for malignant neoplasm of colon (principal); Z86.010 Personal history of colon polyps; K64.8 Other hemorrhoids; K21.9 Gastro-esophageal reflux disease without esophagitis; K29.70 Gastritis, unspecified, without bleeding; R63.4 Abnormal weight loss; Z68.24 Body mass index [BMI] 24.0-24.9, adult; K85.90 Acute pancreatitis without necrosis or infection, unspecified; I10 Essential (primary) hypertension; E11.9 Type 2 diabetes mellitus without complications; E78.5 Hyperlipidemia, unspecified; F17.210 Nicotine dependence, cigarettes, uncomplicated; F12.90 Cannabis use, unspecified, uncomplicated; Z79.82 Long term (current) use of aspirin; Z79.84 Long term (current) use of oral hypoglycemic drugs; Z79.899 Other long term (current) drug therapy
CPT/HCPCS: 43239; G0105; 82948; 87081; 88305; J2371; J2704; J7120

== ENCOUNTER 2023-09-15 07:45 | Outpatient (CLI) | payer MEDICARE, SELFPAY ==
[2023-09-15 08:58] LABS: Alanine Aminotransferase 50 U/L (6-50); Albumin Level 4.6 g/dL (3.5-5.1); Alkaline Phosphatase 73 U/L (38-126); Anion Gap 10 mmol/L (8-16); Aspartate Amino Transferase 42 U/L (17-59); Bilirubin,Total 0.8 mg/dL (0.2-1.3); Blood Urea Nitrogen 22 mg/dL (9-20); Calcium 9.8 mg/dL (8.4-10.2); Carbon Dioxide 22 mmol/L (22-30); Chloride 109 mmol/L (98-107); Estimated Glomerular Filt Rate > 60; Glucose 111 mg/dL (65-110); Potassium 4.2 mmol/L (3.4-5.0); Sodium 141 mmol/L (137-145)
[2023-09-15 09:25] LABS: Prostate Specific Antigen 0.6 ng/mL (< OR = 4.0)
== END 2023-09-15 07:46 | disposition home or self-care (01) ==
PROVIDERS: PCP Internal Medicine; Visit Provider Internal Medicine
DX: I10 Essential (primary) hypertension (principal); Z12.5 Encounter for screening for malignant neoplasm of prostate
CPT/HCPCS: 36415; 80053; 84153; G0103

== ENCOUNTER 2023-12-20 10:08 | Outpatient (CLI) | payer MEDICARE, SELFPAY ==
[2023-12-20 11:02] LABS: Basophils Percent Auto 0.4 % (0.2-1.2); Eosinophils Absolute Auto 0.1 K/mm3 (0-0.3); Eosinophils Percent Auto 1.3 % (0-4.4); Hematocrit 42.5 % (42.0-52.0); Hemoglobin 13.3 g/dL (14.0-18.0); Immature Granulocyte Absolute 0.02 K/mm3 (0.00-0.031); Immature Granulocyte Percent A 0.3 % (0-0.5); Lymphocytes Absolute Auto 1.65 K/mm3 (0.9-3.2); Lymphocytes Percent Auto 20.8 % (18.3-44.2); Mean Corpuscular HGB Conc 31.3 g/dl (32-36); Mean Corpuscular Hemoglobin 30.2 pg (26-34); Mean Corpuscular Volume 96.4 fl (80-100); Mean Platelet Volume 10.8 fl (7.4-10.4); Monocytes Absolute Auto 0.9 K/mm3 (0.1-0.6); Monocytes Percent Auto 10.7 % (2.6-8.5); Neutrophils Absolute Auto 5.3 K/mm3 (1.3-6.7); Neutrophils Percent Auto 66.5 % (45.5-73.1); Platelet Count Result 185 k/mm3 (150-375); Red Blood Count 4.41 M/mm3 (4.6-6.20); Red Cell Distribution Width 13.2 % (11.5-14.5)
[2023-12-20 11:11] LABS: Anion Gap 8 mmol/L (8-16); Blood Urea Nitrogen 28 mg/dL (9-20); Calcium 10.2 mg/dL (8.4-10.2); Carbon Dioxide 24 mmol/L (22-30); Chloride 106 mmol/L (98-107); Cholesterol 110 mg/dL (0-200); Estimated Glomerular Filt Rate > 60; Glucose 98 mg/dL (65-110); HDL Direct 37 mg/dL; Potassium 4.2 mmol/L (3.4-5.0); Sodium 138 mmol/L (137-145); Triglycerides 119 mg/dL (<150)
[2023-12-20 11:21] LABS: LDL Cholesterol Direct 64 mg/dL
[2023-12-20 11:24] LABS: Hemoglobin A1C 6.5 % (<5.7)
[2023-12-20 12:14] LABS: Free T4 Free Thyroxine 0.97 ng/mL (0.78-2.19); Vitamin D 25 Hydroxy 48.1 ng/mL
== END 2023-12-20 10:09 | disposition home or self-care (01) ==
PROVIDERS: PCP Internal Medicine; Visit Provider Internal Medicine
DX: E78.5 Hyperlipidemia, unspecified (principal); I10 Essential (primary) hypertension; E11.9 Type 2 diabetes mellitus without complications; E55.9 Vitamin D deficiency, unspecified; Z79.899 Other long term (current) drug therapy; Z13.29 Encounter for screening for other suspected endocrine disorder
CPT/HCPCS: 36415; 80048; 80061; 82306; 83036; 84439; 84443; 85025

== ENCOUNTER 2024-04-20 07:57 | Emergency (ER) | payer MEDICARE, SELFPAY ==
[2024-04-20] VITALS (10 sets, daily range): BP systolic 109–117; BP diastolic 54–65; PULSE 85; RESP 20; TEMP 36.7; O2SAT 95–100
--- NOTE | ~2024-04-20 | XR_ITS ---
EXAMINATION: XR hip LT 2V w AP pelvis DATE: 04/20/2024 08:32 INDICATION: Left hip pain post fall TECHNIQUE: Anteroposterior view of the pelvis and anteroposterior and frog-leg lateral views of the l eft hip were obtained. COMPARISON: CT dated 04/13/2023 FINDINGS: Normal alignment at the bilateral hips. No fracture or suspected osteonecrosis. 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 There is chondrocalcinosis along the bilateral acetabular maximiliano. Severe lower lumbar spondylosis. IMPRESSION: 1. Chondrocalcinosis and mild osteoarthritis at the bilateral hips. No acute osseous abnormality. 2. Severe lower lumbar spondylosis. Reviewed, dictated and finalized at location A. IMPRESSION: 1. Chondrocalcinosis and mild osteoarthritis at the bilateral hips. No acute os seous abnormality. 2. Severe lower lumbar spondylosis.
--- NOTE | ~2024-04-20 | XR_ITS ---
EXAMINATION: XR knee LT 3V, XR knee RT 3V DATE: 04/20/2024 08:32 INDICATION: Bilateral knee pain post fall TECHNIQUE: 1. Anteroposterior, oblique and crosstable lateral views of the right knee were obtained. 2. Anteroposterior, oblique and crosstable lateral views of the left knee were obtained. COMPARISON: None. FINDINGS: Normal alignment at both knees. No fracture. There is chondrocalcinosis in the medial and lateral com partments of both knees. Mild joint space narrowing at the medial and patellofemoral compartments of the left knee and mild to moderate joint space narrowing at the medial and patellofemoral compartment of the right knee. There are moderate-sized bilateral knee joint effusions with some calcific debris versus loose osteochondral bodies at the suprapatellar recesses of both knees. Heterotopic ossicle a t the distal left patellar tendon. There is mild soft tissue swelling anterior to the left anterior t ibial tuberosity. IMPRESSION: 1. Moderate-sized bilateral knee joint effusions with no fracture at either knee. 2. Chondrocalcinosis at both knees with mild osteoarthritis at the medial and patellofemoral compartm ents of the left knee and mild to moderate osteoarthritis at the medial patellofemoral compartments o f the right knee. Reviewed, dictated and finalized at location A. IMPRESSION: 1. Moderate-sized bilateral knee joint effusions with no fracture at either kne e. 2. Chondrocalcinosis at both knees with mild osteoarthritis at the medial and p atellofemoral compartments of the left knee and mild to moderate osteoarthritis at the medial patellofemoral compartments of the right knee.
--- NOTE | 2024-04-20 08:43 | ED.GENADULT ---
HPI - General Adult General Chief complaint: Fall Stated complaint: fall Time Seen by Provider: 04/20/24 08:04 History of Present Illness HPI narrative: patient 73-year-old gentleman who presents emergency department with chief complaint of left knee pain. Patient reports that for multiple months he has had some weakness in the left leg the patient reports he was walking in a uneven ground lost his balance and fell patient reports pain in the left knee that hurts whenever he tries to ambulate also reports some mild pain in the right knee left hip head injury denies loss of consciousness reports that he is not on any blood thinners Related Data Home Medications Medication Instructions Recorded Confirmed fenofibrate nanocrystallized 145 145 mg PO DAILY 05/01/20 12/20/23 mg tablet Allergies Allergy/AdvReac Type Severity Reaction Status Date / Time metformin AdvReac Mild Diarrhea Verified 04/20/24 08:04 Review of Systems Review of Systems: A 10 system review of systems was completed on the patient and is negative except for what is stated in the HPI. Nursing and ancillary documentation was reviewed. [facility] Past Medical History Medical History Benign essential hypertension BMI 22.0-22.9, adult BMI 23.0-23.9, adult BMI 24.0-24.9, adult DM type 2 (diabetes mellitus, type 2) Dyslipidemia Encounter for Medicare annual wellness exam Encounter to establish care Exocrine pancreatic insufficiency Follow up Hyperlipidemia Hypertension Nocturia On residential drug therapy Pancreatitis Prostate cancer screening RLS (restless legs syndrome) Spider bite Syncope Surgical History Surgical History H/O nasal septoplasty H/O right knee surgery Previous back surgery Social History Social History Smoking status: Current some day smoker Second hand tobacco smoke exposure: Yes Substance use: current Substance use type: marijuana Other substance usage details: Smokes marijuana Last use: 08/13/23 Lack of Transportation: No Lack of Food: Never True Current Housing: I Have Housing Concerned About Future Housing: No Difficulty Paying Gas/Electric Bills: No Difficulty Paying for Meds: No Currently Unemployed: No Education: Trade/Vocational Certificate Difficulty w/ Childcare or Family Care: No Living arrangements: with family Gender identity (if verbalized by the patient): Male Exam Narrative: GENERAL: Well-appearing, well-nourished, and in no acute distress. HEAD: Normocephalic, atraumatic. EYES: PERRLA and EOMI. ENT: Nares clear, no rhinorrhea or epistaxis. Mucous membranes moist. NECK: Supple. CHEST: Clear to auscultation. No respiratory distress. HEART: Regular rate and rhythm. No murmur heard. Normal peripheral pulses. ABDOMEN: Soft, nontender, nondistended, normal active bowel sounds. EXTREMITIES: Normal range of motion tenderness to palpation the left and right knee. No edema. SKIN: Warm, dry, no rash. NEURO: No focal deficits. Alert and oriented x3. PSYCH: Normal mood and affect. Course Vital Signs Vital signs: Vital Signs Pulse Oximetry 97 04/20/24 08:03 Temperature 36.7 C 04/20/24 08:04 Pulse Rate 85 04/20/24 08:04 Respiratory Rate 20 04/20/24 08:04 Blood Pressure 109/54 L 04/20/24 08:46 Pulse Oximetry 100 04/20/24 09:16 Medical Decision Making [facility] Narrative Medical decision making narrative: differential diagnosis includes fracture, sprain. The patient having weakness is a chronic issue has been ongoing for greater than 6 months with no changes plain film x-rays showed no evidence of fracture there was evidence of joint effusion. The patient will be placed on Sawyer wrap Vital Signs Vital Signs: Vital Signs Pulse Oximetry 97
== END 2024-04-20 09:50 | disposition home or self-care (01) ==
PROVIDERS: Emergency Provider Emergency Medicine; PCP Internal Medicine
DX: S83.92XA Sprain of unspecified site of left knee, initial encounter (principal); E78.5 Hyperlipidemia, unspecified; I10 Essential (primary) hypertension; E11.9 Type 2 diabetes mellitus without complications; F17.200 Nicotine dependence, unspecified, uncomplicated; W19.XXXA Unspecified fall, initial encounter
CPT/HCPCS: 73502; 73562; 99284

== ENCOUNTER 2024-04-24 14:56 | Outpatient (CLI) | payer MEDICARE, SELFPAY ==
[2024-04-24 15:33] LABS: Basophils Percent Auto 0.6 % (0.2-1.2); Eosinophils Absolute Auto 0.1 K/mm3 (0-0.3); Eosinophils Percent Auto 1.4 % (0-4.4); Hematocrit 37.4 % (42.0-52.0); Immature Granulocyte Absolute 0.02 K/mm3 (0.00-0.031); Immature Granulocyte Percent A 0.3 % (0-0.5); Lymphocytes Absolute Auto 1.46 K/mm3 (0.9-3.2); Lymphocytes Percent Auto 21.1 % (18.3-44.2); Mean Corpuscular HGB Conc 32.1 g/dl (32-36); Mean Corpuscular Hemoglobin 30.8 pg (26-34); Mean Corpuscular Volume 95.9 fl (80-100); Mean Platelet Volume 10.4 fl (7.4-10.4); Monocytes Absolute Auto 0.7 K/mm3 (0.1-0.6); Monocytes Percent Auto 10.4 % (2.6-8.5); Neutrophils Absolute Auto 4.6 K/mm3 (1.3-6.7); Neutrophils Percent Auto 66.2 % (45.5-73.1); Platelet Count Result 203 k/mm3 (150-375); White Blood Count 6.9 K/mm3 (4.5-10.0)
[2024-04-24 15:48] LABS: Alanine Aminotransferase 31 U/L (6-50); Albumin Level 4.3 g/dL (3.5-5.1); Alkaline Phosphatase 66 U/L (38-126); Anion Gap 9 mmol/L (4-12); Aspartate Amino Transferase 30 U/L (17-59); Bilirubin,Total 0.7 mg/dL (0.2-1.3); Blood Urea Nitrogen 33 mg/dL (9-20); Calcium 9.4 mg/dL (8.4-10.2); Carbon Dioxide 24 mmol/L (22-30); Chloride 105 mmol/L (98-107); Cholesterol 97 mg/dL (0-200); Estimated Glomerular Filt Rate > 60; Glucose 92 mg/dL (65-110); HDL Direct 35 mg/dL; Potassium 4.2 mmol/L (3.4-5.0); Sodium 138 mmol/L (137-145); Triglycerides 105 mg/dL (<150)
[2024-04-24 16:05] LABS: LDL Cholesterol Direct 55 mg/dL
[2024-04-24 18:09] LABS: Hemoglobin A1C 6.3 % (<5.7)
== END 2024-04-24 14:57 | disposition home or self-care (01) ==
PROVIDERS: PCP Internal Medicine; Visit Provider Internal Medicine
DX: E78.5 Hyperlipidemia, unspecified (principal); I10 Essential (primary) hypertension; E11.9 Type 2 diabetes mellitus without complications
CPT/HCPCS: 36415; 80053; 80061; 83036; 85025

== ENCOUNTER 2024-05-02 15:12 | Outpatient (CLI) | payer MEDICARE, SELFPAY ==
[2024-05-02 16:35] LABS: Iron 70 ug/dL (49-181)
[2024-05-02 16:45] LABS: Percent Iron Saturation 22 % (20-50)
[2024-05-02 19:01] LABS: Folic Acid > 20.0 ng/mL (2.76->20); Vitamin B12 > 1000.0 pg/mL (239-931)
== END 2024-05-02 15:13 | disposition home or self-care (01) ==
LOC: ANHLAB 15:17
PROVIDERS: PCP Internal Medicine; Visit Provider Nurse Practitioner
DX: E11.9 Type 2 diabetes mellitus without complications (principal); D64.9 Anemia, unspecified
CPT/HCPCS: 36415; 82607; 82728; 82746; 83540; 83550

== ENCOUNTER 2024-05-31 05:54 | Outpatient (CLI) | payer MEDICARE, SELFPAY ==
--- NOTE | 2024-05-30 12:45 | PC.NURSE ---
05/29/24 late entry Instructions emailed to patient as requested but they were unable to navigate their email. I had patient and spouse come to hospital to cloth picker instructions today and I reviewed instructions with them. They verbalized understanding
[2024-05-31] MEDS: SIMETHICONE ORAL SUSPENSION 20 MG/0.3 ML 30 ML BOTTLE 0.6 ML IRRIGATION (06:05)
--- NOTE | 2024-05-31 06:24 | SUR.OPER ---
Patient brought to GI Lab. Instructions for patient undergoing Capsule Endoscopy reviewed with patient. Consent form signed. Sensor array applied to patient's abdomen and connected to recorded. Patient swallowed capsule with ozs of water infused with Simethicone. Patient instructed they may have clear liquids at 0810 this AM and eat or drink at 1010 this AM. Patient instructed to return to GI Lab at 1500 this afternoon for removal of recording device and to call [phone] or to return to the hospital if any nausea and vomiting or abdominal pain is experienced.
--- NOTE | 2024-05-31 06:26 | SUR.PREOP ---
Capsule information [id number] LOT [id number]
== END 2024-05-31 06:24 | disposition home or self-care (01) ==
PROVIDERS: PCP Internal Medicine; Referring Provider Nurse Practitioner; Visit Provider Internal Medicine Gastroenterology
PROC: 0DJ07ZZ Inspection of Upper Intestinal Tract, Via Natural or Artificial Opening (ICD-10-PCS; CPT 91110; principal; 2024-05-31 07:00)
DX: D64.9 Anemia, unspecified (principal); R19.5 Other fecal abnormalities
CPT/HCPCS: 91110

== ENCOUNTER 2024-07-17 08:40 | Outpatient (CLI) | payer MEDICARE, SELFPAY ==
--- NOTE | ~2024-07-17 | MR_ITS ---
MRI of the lumbar spine Clinical History: Back pain Technique: Axial T2-weighted images, and sagittal T1-weighted, T2-weighted, and and T2 fat-sat images were acquired. Findings: No fracture noted. There is minimal grade 1 retrolisthesis of L2 over L3, and of L4 over L5 . No suspicious bone marrow signal abnormality seen. At L1-L2, there is advanced degenerative distended. There is mild disc bulge with mild to moderate fa cet hypertrophy. No central canal stenosis. There is moderate right neural foraminal narrowing, and m inimal left neural foraminal narrowing. At L2-L3, there is advanced degenerative disc narrowing. There is diffuse disc bulge with moderate fa cet arthropathy, resulting in moderate spinal canal stenosis/thecal sac compression. There is moderat e bilateral neural foraminal narrowing, right worse than left. At L3-L4, there is advanced degenerative distended. Diffuse disc bulge and moderate facet arthropathy are present, with moderate spinal canal stenosis/thecal sac compression. There is severe right neura l foraminal narrowing, and mild left neural foraminal narrowing. At L4-L5, there is severe degenerative disc narrowing. Diffuse disc bulge and advanced facet arthropa thy result in severe spinal canal stenosis/thecal sac compression. There is severe right neural lelia inal narrowing, and moderate left neural foraminal narrowing. At L5-S1, there is moderate to advanced degenerative disc narrowing. There is diffuse disc bulge and moderate facet arthropathy. No lorna central canal stenosis. There is severe bilateral neural foramin al, otherwise. Paravertebral soft tissues are unremarkable. Impression: Severe degenerative spondylosis throughout the lumbar spine, as detailed above. Reviewed, dictated and finalized at location M. Impression: Severe degenerative spondylosis throughout the lumbar spine, as detailed above.
== END 2024-07-17 08:41 | disposition home or self-care (01) ==
PROVIDERS: PCP Internal Medicine; Visit Provider Internal Medicine
DX: M47.896 Other spondylosis, lumbar region (principal)
CPT/HCPCS: 72148

== ENCOUNTER 2024-10-30 09:32 | Outpatient (CLI) | payer MEDICARE, SELFPAY ==
[2024-10-30 10:05] LABS: Add Urine Microscopic? NO; Appearance Urine Clear (Clear); Bilirubin Urine Negative (Negative); Blood Urine Negative (Negative); Color Urine Yellow (Yellow); Glucose Urine UA 3+ mg/dL (Negative); Ketones Urine Negative (Negative); Leukocyte Esterase Ur Negative LEU/UL (Negative); Nitrate Urine Negative (Negative); Protein Urine Negative (Negative); Specific Grav Ur 1.018 (1.001-1.035); Urobilinogen Urine 0.2 mg/dL (<2.0)
[2024-10-30 10:08] LABS: Basophils Absolute Auto 0.1 K/mm3 (0.0-0.1); Basophils Percent Auto 0.6 % (0.2-1.2); Eosinophils Absolute Auto 0.1 K/mm3 (0-0.3); Eosinophils Percent Auto 1.4 % (0-4.4); Hematocrit 43.7 % (42.0-52.0); Hemoglobin 13.9 g/dL (14.0-18.0); Immature Granulocyte Absolute 0.04 K/mm3 (0.00-0.031); Immature Granulocyte Percent A 0.4 % (0-0.5); Lymphocytes Absolute Auto 1.78 K/mm3 (0.9-3.2); Lymphocytes Percent Auto 18.3 % (18.3-44.2); Mean Corpuscular HGB Conc 31.8 g/dl (32-36); Mean Corpuscular Hemoglobin 30.2 pg (26-34); Mean Platelet Volume 10.3 fl (7.4-10.4); Monocytes Percent Auto 9.9 % (2.6-8.5); Neutrophils Absolute Auto 6.8 K/mm3 (1.3-6.7); Neutrophils Percent Auto 69.4 % (45.5-73.1); Platelet Count Result 205 k/mm3 (150-375); White Blood Count 9.8 K/mm3 (4.5-10.0)
[2024-10-30 10:15] LABS: Hemoglobin A1C 6.4 % (<5.7)
[2024-10-30 10:17] LABS: Alanine Aminotransferase 39 U/L (6-50); Albumin Level 4.8 g/dL (3.5-5.1); Alkaline Phosphatase 87 U/L (38-126); Anion Gap 11 mmol/L (4-12); Aspartate Amino Transferase 37 U/L (17-59); Blood Urea Nitrogen 34 mg/dL (9-20); Calcium 9.8 mg/dL (8.4-10.2); Carbon Dioxide 23 mmol/L (22-30); Chloride 104 mmol/L (98-107); Cholesterol 136 mg/dL (0-200); Estimated Glomerular Filt Rate > 60; Glucose 100 mg/dL (65-110); HDL Direct 45 mg/dL; Potassium 4.2 mmol/L (3.4-5.0); Sodium 138 mmol/L (137-145); Triglycerides 97 mg/dL (<150)
[2024-10-30 10:28] LABS: LDL Cholesterol Direct 70 mg/dL
[2024-10-30 10:46] LABS: Free T4 Free Thyroxine 1.05 ng/dL (0.78-2.19); Vitamin D 25 Hydroxy 52.6 ng/mL
[2024-10-30 11:30] LABS: Folic Acid > 20.0 ng/mL (2.76->20); Vitamin B12 > 1000.0 pg/mL (239-931)
--- OUTSIDE RECORDS SUMMARY | 2024-10-31 22:31 | XMS_ITS | CONTINUITY OF CARE DOCUMENT ---
Author Name everardo mcgee Address Unknown Organization [facility] Address [address] [place] [address] Phone [phone] Care Team Providers Care Chief Clerk Shelter Name Role Phone Johnathan Zimmer MD Unavailable [phone] MELONIE HARPER MD Unavailable [phone] MELONIE HARPER MD Unavailable [phone] PROBLEMS Condition Status Date Provider Notes HYPERCHYLOMICRONEMIA active Kamilah dumont OBESITY active Kamilah Barbour CAD OF ELIM IRA ARTERY active Kamilah dumont Family History of Hypertension: active ? Heat her Blunt Abnormal stress nuclear scan active Johnathan woodard MD PVC's active Johnathan Zimmer MD ENCOUNTERS Date Type Provider Location Encounter Diag nosis - In-person encounter Office Visit Johnathan Zimmer MD [facility] - In-person encounter Office Visit Johnathan Zimmer MD [facility] PVC'sAbnormal stress nuclear scanFamily History of Hypertension: - In-person encounter Office Visit Deven Arana MD [facility] VITAL SIGNS Date Observation Value Provider blood pressure, diastolic 91 mm[Hg] Erika Garzon blood pressure, systolic 142 mm[Hg] Ricarda Garzon Body Mass Index (Ratio) 30.45 kg/m2 Delia Garzon pulse rate 60 /min Sunday lazar oxygen saturation, oximetry 98 % Sunday Garzon respiratory rate E&M 18 /min Blanca Garzon weight E&M 237.2 [lb_av] Sunday chahal Body Mass Index (Ratio) 30.04 kg/m2 Anea steve Severino blood pressure, diastolic, left arm 90 mm [Hg] Aneatris Brown blood pressure, systolic, left arm 147 mm [Hg] Aneatris Brown blood pressure, diastolic, right arm 88 m m[Hg] Aneatris Brown blood pressure, systolic, right arm 140 m m[Hg] Aneatris Severino blood pressure, diastolic 90 mm[Hg] An eatris Severino blood pressure, systolic 147 mm[Hg] Ane atris Severino pulse rate 78 /min Aneatris [facility] oxygen saturation, oximetry 98 % Aneatris Severino respiratory rate E&M 17 /min Aneatri s Severino weight E&M 234 [lb_av] Aneatris [facility] height E&M 74 [in_i] Jewel Haq blood pressure, diastolic, left arm 92 mm [Hg] iTmothy Leonard blood pressure, systolic, left arm 150 mm [Hg] Timothy Leonard blood pressure, diastolic, right arm 92 m m[Hg] Timothy Leonard blood pressure, systolic, right arm 150 m m[Hg] Timothy Leonard pulse rate 66 /min Timothy Leonard oxygen saturation, oximetry 94 % Timothy Leonard respiratory rate E&M 18 /min Timothy cantrell weight E&M 252 [lb_av] Timothy Leonard ALLERGIES No Known Drug Allergies RESULTS Date Observation Value Provider Reference Range Interpretation Location triglyceride, serum, fasting 358 mg/dL Delia Garibay RN HDL cholesterol, serum 47 mg/dL Delia Garibay RN LDL cholesterol, serum 58 mg/dL Delia Garibay RN 2008/06/1 5 cholesterol, serum 177 mg/dL Delia Garibay RN HISTORY OF MEDICATION USE Medication Status Instructions Dates Provider Indications Com ments LIPITOR 10 MG ORAL TABLET active ONE TAB. DAILY 03/18 Johnathan Zimmer MD FIBER active 4 caps daily Sunday Garzon ASPIRIN 81 MG ORAL TABLET active ONE TAB. DAILY Sunday Garzon HYDROCHLOROTHIAZIDE 12.5 MG ORAL CAPSULE active ONE TAB. DAILY Sunday Garzon NIASPAN 1000MG completed once a day 02/20 - 02/18 Jewel Haq CYMBALTA 60 MG ORAL CAPSULE DELAYED RELEASE PARTICLES active QD Kamilah Stahlschmidt LABETALOL HCL 200 MG ORAL TABLET active BID Kamilah Stahlschmidt FISH OIL 1000 MG ORAL CAPSULE active twice daily Sunday Garzon TRICOR 145 MG ORAL TABLET completed ONE TAB. TWICE DAILY - 03/18 Sunday Garzon AVALIDE 300-12.5 MG ORAL TABLET completed ONE TAB. DAILY - 02/18 Jewel Haq SOCIAL HISTORY Date Observation Value Provider social history reviewed E&M revi ewed - no changes required Denise Hoyt smoking status Former smoker Johnathan Zimmer MD physical exercise, frequency, days per week no Sunday Garzon alcohol use, average drinks per day 4+ drinks per day Sunday Garzon caffeine use, averag e drinks per day yes Sunday Garzon smoking/tobacco cess ation, patient education and counseling yes Sunday Garzon smoking, year quit 1974 Sunday Garzon smoking, date started 1958 Dipesh Garzon cigarette use yes Sunday chahal smoking/tobacco cess ation, patient education and counseling yes Denise Hoyt social history reviewed E&M oren ewed - no changes required Denise Hoyt smoking, year quit 1975 Jewel Haq smoking, date started 1958 Divine Haq cigarette use yes Jewel Haq smoking status Former smoker Jewel breaux social history E&M L wes with family/friends E thnicity: Deven Arana MD social history reviewed E&M reviewed Deven Arana MD physical exercise, frequency, days per week no [employer] caffeine use, averag e drinks per day yes [employer] alcohol use, average drinks per day 4+ drinks per day [employer] smoking status Non-smoker [employer] MENTAL STATUS Date Observation Value Provider assessment of judgme nt and insight E&M Alert and oriented to time, place and person. Mood and affect are normal. Deven Arana MD FAMILY HISTORY Family Member Condition Father Family History of Hy pertension: INSURANCE PROVIDERS Payer name Policy type / Coverage type Louann red democr[place] PART B Medicare [id number] TREATMENT PLAN Date Name Performer READY TO SIGN: H is updated medication list for this problem includes: Tricor 145 Mg Tabs (Fenofibrate) ..... One tab. twice daily Labetalol Hcl 200 Mg Tabs (Labetalol hcl) ..... Bid m edical therapy. Deven Arana MD READY TO SIGN: H is updated medication list for this problem includes: Avalide 300-12.5 Mg Tabs (Irbesartan-hydrochlorothiazide) ..... One tab. daily Labetalol Hcl 200 Mg Tabs (Labetalol hcl) ..... Bid Orders: C omplete Echo ([id number]) Deven Arana MD READY TO SIGN: H is updated medication list for this problem includes: Tricor 145 Mg Tabs (Fenofibrate) ..... One tab. twice daily f fernando oil and repeat flp O rders: L IPID PANEL (0280) Deven Arana MD Date Name HEMOGLOBIN A1c Cardiac Cath - L/R - [facility] Complete Echo Complete Echo LIPID PANEL HISTORY OF PROCEDURES Procedure Date Procedure Name Provider Procedure Notes S tatus EKG Johnathan Zimmer MD completed EKG Johnathan Zimmre MD completed
--- OUTSIDE RECORDS SUMMARY | 2024-10-31 22:32 | XMS_ITS | Referral Summary ---
Author Organization [facility] Address [address] [place] [address] Care Team Providers Care Chief Science Officer Name Role Phone Tung Leon MD Primary Care Provider Source Comments [facility],non-owned Affiliates and Associated Physician Practices is amultiple site organization consisting of ambulatory clinics and hospital sitesin [place], [place] and [place]. This disclosure is being madepursuant to the Care Everywhere program and may not contain all information available regarding this patient. Last updated 18.[facility] Allergies No known active allergies Medications * Be aware that medications may not be up to date on this document. Alwaysverify current medications with the patient. Medication Sig Dispensed Refills Start Date End Date Status aspirin (ASPIRIN) 81 MG tablet Take 1 (one) tablet by mouth DAILY 07/18/2017 Active atorvastatin (Lipitor) 20 MG tablet Take 1 (one) tablet by mouth at bedtime Active DULoxetine (Cymbalta) 60 MG capsule Take 1 (one) capsule by mouth once daily Active LABETALOL HCL PO Take 200 mg by mouth once daily Active metFORMIN ER 24hr (Glucophage XR) 500MG tablet Take 1 (one) tablet by mouth once daily Active Cholecalciferol (Vitamin D-[address]) 25 MCG (1000 UT) Take 1 (one) tablet by mouth every 2 days Active cyanocobalamin (Vitamin B-12) 2500 MCG tablet Take 1 (one) tablet by mouth once daily Active Bioflavonoid Products (Vitamin C Plus) 1000 MG TABS Take 1 tablet by mouth once daily Active Ergocalciferol (VITAMIN D2 PO) Take 625 mg by mouth every 7 days Active Ferrous Sulfate (IRON PO) Take 65 mg by mouth once daily Active Baldwin-3 Fatty Acids (fish oil) 1000 MG capsule Active Calcium Polycarbophil (FIBER-CAPS PO) Take 8 capsules by mouth once daily Active Active Problems Problem Noted Date Diagnosed Date Spinal stenosis of lumbar re gion without neurogenic claudication 07/29/2017 Other specified postprocedural states 07/29/2017 Obesity 07/29/2017 Spondylosis of lumbar region without myelopathy or radiculopathy 07/29/2017 Social History Tobacco Use Types Packs/Day Years Used Date Smoking Tobacco: Former Cigarettes Q uit: 1975 Smokeless Tobacco: Never Tobacco Cessation:Counseling Given: Not Answered Alcohol Use Standard Drinks/Week Comments Not Currently 0 (1 standard drink = 0.6 oz pur e alcohol) stopped over5 years ago Sex and Gender Information Value Date Recorded Sex Assigned at Not on file Gender Identity Not on file Sexual Orientation Not on file Last Filed Vital Signs Vital Sign Reading Time Taken Comments Blood Pressure 141/84 09/22/2022 8:53 AM HONEYCOMB DECAPPER Pulse 63 09/22/2022 8:53 AM HONEYCOMB DECAPPER Temperature 36.4 ??C (97.6 ??F) 09/22/2022 8:53 AM CS T Respiratory Rate 18 09/22/2022 8:53 AM HONEYCOMB DECAPPER Oxygen Saturation 100% 09/22/2022 8:53 AM HONEYCOMB DECAPPER Inhaled Oxygen Concentration - - Weight 89.4 kg (197 lb) 09/22/2022 8:53 AM HONEYCOMB DECAPPER Height 186.7 cm (6' 1.5 ) 11/05/2018 1:24 PM HONEYCOMB DECAPPER Body Mass Index 25.64 11/05/2018 1:24 PM HONEYCOMB DECAPPER Plan of Treatment Not on file Care Teams Chief Science Officer Relationship Specialty Start Date End Date Tung Leon MD [address] [place] [address] PCP - General 11/05/18
--- OUTSIDE RECORDS SUMMARY | 2024-10-31 22:32 | XMS_ITS | Encounter Summary ---
Author Organization [facility] Address [address] [place] [address] Care Team Providers Care Scanning Tech Name Role Phone Unavailable Primary Care Provider Unavailabl e Encounter Details Date Type Department Care Team (Late Contact Info) Description 10/29/2024 External Device Data [facility] ABSTRACTION Provider, Abstract NO ADDRESS ON FILE Social History Tobacco Use Types Packs/Day Years Used Date Smoking Tobacco: Former Cigarettes 1 20 Q uit: 05/10/1975 Smokeless Tobacco: Never Alcohol Use Standard Drinks/Week Comments Not Currently 12 (1 standard drink = 0.6 oz pu re alcohol) Feeling Safe Answer Date Recorded Are you in a relationship wi th someone who hurts you emotionally and/or physically? No 08/15/2024 Food Insecurity Answer Date Recorded Social/Environmental Concerns No concerns Transportation Needs Answer Date Record ed Social/Environmental Concerns No concerns Housing Stability Answer Date Recorded Social/Environmental Concerns No concerns Utility Needs Answer Date Recorded Social/Environmental Concerns No concerns Sex and Gender Information Value Date Recorded Sex Assigned at Not on file Legal Sex Male 10:35 AM CDT Gender Identity Not on file Sexual Orientation Not on file documented as of this encounter Plan of Treatment Upcoming Encounters Date Type Department Care Team (Late Contact Info) Description 11/19/2024 10:30 AM CASINO DEALER Office Visit [facility] [address] [facility] [address] [address] [place] [address] Lauri Tsai NP [address] [place] [address] documented as of this encounter Visit Diagnoses Not on filedocumented in this encounter
--- OUTSIDE RECORDS SUMMARY | 2024-10-31 22:32 | XMS_ITS | Clinical Summary ---
Author Organization [facility] Address [address] [place] [address] Care Team Providers Care Vending Service Technician Name Role Phone Tung Leon MD Primary Care Provider Source Comments [facility],non-owned Affiliates and Associated Physician Practices is amultiple site organization consisting of ambulatory clinics and hospital sitesin [place], [place], [place] and [place]. This disclosure is being madepursuant to the Care Everywhere program and may not contain all information available regarding this patient. Last updated 18.[facility] Allergies No known active allergies Medications * [...] 65 mg by mouth once daily Active [place]-3 Fatty Acids (fish oil) 1000 MG capsule Active Calcium Polycarbophil (FIBER-CAPS PO) Take 8 capsules by mouth once daily Active Active Problems Problem Noted Date Diagnosed Date Spinal stenosis of lumbar re gion without neurogenic claudication 07/29/2017 Other specified postprocedural states 07/29/2017 Obesity 07/29/2017 Spondylosis of lumbar region without myelopathy or radiculopathy 07/29/2017 Family History Medical History Relation Name Comments Cancer - Prostate Brother Other - Cardiac Father Hypertension Mother Cancer - Breast Sister Cancer - Colon Sister Relation Name Status Comments Brother Father Mother Sister Social History Tobacco Use Types Packs/Day Years [...] Comments Blood Pressure 141/84 09/22/2022 8:53 AM ALLOCATION ANALYST Pulse 63 09/22/2022 8:53 AM ALLOCATION ANALYST Temperature 36.4 ??C (97.6 ??F) 09/22/2022 8:53 AM CS T Respiratory Rate 18 09/22/2022 8:53 AM ALLOCATION ANALYST Oxygen Saturation 100% 09/22/2022 8:53 AM ALLOCATION ANALYST Inhaled Oxygen Concentration - - Weight 89.4 kg (197 lb) 09/22/2022 8:53 AM ALLOCATION ANALYST Height 186.7 cm (6' 1.5 ) 11/05/2018 1:24 PM ALLOCATION ANALYST Body Mass Index 25.64 11/05/2018 1:24 PM ALLOCATION ANALYST Plan of Treatment Health Maintenance Due Date Last Done Comments COLOGUARD (AGES 45-75) - COLON CA SCREENING 1949 COLON MONITORING 1949 COLONOSCOPY - COLON CA SCREENING 1949 CT COLONOGRAPHY - COLON CA SCREENING 1949 Colorectal Cancer Screening 1949 FIT - COLON CA SCREENING 1949 FLEX SIG - COLON CA SCREENING 1950 MEDICARE AWV ? 12 MONTHS 1950 HEPATITIS C SCREENING 04/25/1967 DTAP/TDAP/TD VACCINES (1 - Tdap) 1968 PNEUMOCOCCAL VACCINE 50+ (1 of 1 - PCV) 1999 ZOSTER VACCINE (1 of 2) 1999 Respiratory Syncytial Virus (RSV) Vaccine Pt: or over 60 yrs (1 - 1-dose 75+ series) 2024 COVID-19 VACCINE (2 - season) 2024 09/03/2021 INFLUENZA VACCINE (#1) 2024 0, 07/13/2018, 07/28/2017, Additional history exists DEPRESSION SCREENING 10/09/2024 HEPATITIS B VACCINE Aged Out No longe r eligible based on patient's age to complete this topic HIB VACCINE Aged Out No longer eligi ble based on patient's age to complete this topic HPV VACCINE Aged Out No longer eligi ble based on patient's age to complete this topic MENINGOCOCCAL (Group B) VACCINE Aged Out No longer eligible based on patient's age to complete this topic MENINGOCOCCAL VACCINE Aged Out No king spencer eligible based on patient's age to complete this topic Care Teams Vending Service Technician Relationship Specialty Start Date End Date Tung Leon MD [address] [phone] PCP - General 11/05/18
--- OUTSIDE RECORDS SUMMARY | 2024-10-31 22:32 | XMS_ITS | Patient Health Summary ---
Author Organization [facility] Address [address] [place] [address] Care Team Providers Care Sample Maker Original Name Role Phone Tung Leon MD Primary Care Provider Note from [facility],non-owned Affiliates and Associated Physician Practices is amultiple site organization consisting of ambulatory clinics and hospital sitesin [place], [place], [place]. This disclosure is being madepursuant to the Care Everywhere program and may not contain all information available regarding this patient. Last updated 18.[facility] Allergies No known active allergies Medications * Be aware that medications may not be up to date on this document. Alwaysverify current medications with the patient. * aspirin (ASPIRIN) 81 MG tablet(Started 07/18/2017) Take 1 (one) tablet by mouth DAILY * atorvastatin (Lipitor) 20 MG tablet Take 1 (one) tablet by mouth at bedtime * DULoxetine (Cymbalta) 60 MG capsule Take 1 (one) capsule by mouth once daily * LABETALOL HCL PO Take 200 mg by mouth once daily * metFORMIN ER 24hr (Glucophage XR) 500MG tablet Take 1 (one) tablet by mouth once daily * Cholecalciferol (Vitamin D-[address]) 25 MCG (1000 UT) Take 1 (one) tablet by mouth every 2 days * cyanocobalamin (Vitamin B-12) 2500 MCG tablet Take 1 (one) tablet by mouth once daily * Bioflavonoid Products (Vitamin C Plus) 1000 MG TABS Take 1 tablet by mouth once daily * Ergocalciferol (VITAMIN D2 PO) Take 625 mg by mouth every 7 days * Ferrous Sulfate (IRON PO) Take 65 mg by mouth once daily * [place]-3 Fatty Acids (fish oil) 1000 MG capsule * Calcium Polycarbophil (FIBER-CAPS PO) Take 8 capsules by mouth once daily Active Problems Problem Noted Date Diagnosed Date [...] Comments Blood Pressure 141/84 09/22/2022 8:53 AM CUSTOMER CONTACT REPRESENTATIVE Pulse 63 09/22/2022 8:53 AM CUSTOMER CONTACT REPRESENTATIVE Temperature 36.4 ??C (97.6 ??F) 09/22/2022 8:53 AM CS T Respiratory Rate 18 09/22/2022 8:53 AM CUSTOMER CONTACT REPRESENTATIVE Oxygen Saturation 100% 09/22/2022 8:53 AM CUSTOMER CONTACT REPRESENTATIVE Inhaled Oxygen Concentration - - Weight 89.4 kg (197 lb) 09/22/2022 8:53 AM CUSTOMER CONTACT REPRESENTATIVE Height 186.7 cm (6' 1.5 ) 11/05/2018 1:24 PM CUSTOMER CONTACT REPRESENTATIVE Body Mass Index 25.64 11/05/2018 1:24 PM CUSTOMER CONTACT REPRESENTATIVE Procedures * XR SPINE ENTIRE 2 OR 3VW(Performed 11/05/2018) Performed for Low back pain, unspecified back pain laterality, unspecified chronicity, with sciatica presence unspecified * XR SPINE ENTIRE 2 OR 3VW(Performed 10/17/2017) Results * XR SPINE ENTIRE 2 OR 3VW (11/05/2018 1:23 PM CUSTOMER CONTACT REPRESENTATIVE) Only the most recent of2 resultswithin the time period is included. Anatomical Region Laterality Modality Radiographic Roxann ging 11/05/2018 1:19 PM CUSTOMER CONTACT REPRESENTATIVE Impressions 11/05/2018 1:35 PM CUSTOMER CONTACT REPRESENTATIVE IMPRESSION: Mild scoliosis This report was electronically signed by DION NGO MD ??on 11/05/2018 1:35 PM . Narrative 11/05/2018 1:35 PM CUSTOMER CONTACT REPRESENTATIVE Exam: ??XR SPINE ENTIRE 2 view History: ??lbp Comparison: 10/17/2017. Findings: There is mild thoracolumbar scoliosis. There is sagittal plane imbalance with vertical axis measuring +5.2 cm. Moderate to severe lumbar, moderate thoracic, and likely moderate cervical degenerative changes are present although the cervical spine is not well seen. There is no coronal plane imbalance. There is mild pelvic tilt with the right iliac crest higher than the left. Procedure Note Dion Ngo MD - 11/05/2018 Exam: XR SPINE ENTIRE 2 view History: lbp Comparison: 10/17/2017. Findings: There is mild thoracolumbar scoliosis. There is sagittal plane imbalance with vertical axis measuring +5.2 cm. Moderate to severe lumbar,moderate thoracic, and likely moderate cervical degenerative changes are present although the cervical spine is not well seen. There is no coronal plane imbalance. There is mild pelvic tilt with the right iliac crest higher than the left. IMPRESSION: Mild scoliosis This report was electronically signed by DION NGO MD on11/05/2018 1:35 PM . Marti Hoover MD DIAGNOSTIC IMAGING [facility] Care Teams Sample Maker Original Relationship Specialty Start Date End Date Tung Leon MD [address] [phone] PCP - General 11/05/18
--- OUTSIDE RECORDS SUMMARY | 2024-10-31 22:32 | XMS_ITS | Continuity of Care Document ---
Author Organization [facility] Address [address] [facility] [address] [place] [address] Phone Care Team Providers Care Street Supervisor Name Role Phone Anmol Vera MD Unavailable Unavailable Advance Directives Directive Yes / No Effective Date File Name No Information Encounters Encounter Description Practice Location Reason(s) For Visit Diagnoses Date Provider Providers Copied on Encounter [facility], [address], [place], [place], [id number], [place] tel:[phone] [facility] No Information 2-[address] Jody Corea. [address] [facility] [place], [place], [place], [id number], [place]. tel:[phone] Family History Family Member Type Diagnosis Age At Onset No Information Payers Payer name Insurance type Covered constitution party ID Authoriza tion(s) No Information Social History Type Description Quantity Date Captured Comments Sex Male Smoking Status No Information Chief Complaint And Reason For Visit No Information Reason For Referral Reason For Referral No Information History Of Present Illness Encounter Date Complaint History Of Prese nt Illness No Information Functional Status Date Functional Assessmen t No Information Instructions Date Instruction Additional Infor mation No Information Assessments Type Assessment Date No Information Patient Care Teams Name Effective Dates (start - stop) Status Members No Information
--- OUTSIDE RECORDS SUMMARY | 2024-10-31 22:32 | XMS_ITS | Clinical Summary ---
Author Organization [facility] Address [address] [place] [address] Care Team Providers Care Twister Tender Paper Name Role Phone Unavailable Primary Care Provider Unavailabl e Allergies Active Allergy Reactions Criticality Noted Date Comments Metformin Diarrhea,Muscle Pain Low 08/07/2024 Medications DULoxetine (CYMBALTA) 60 mg Capsule, Delayed Release(E.C.) Take 60 mg by mouth daily at bedtime. Active labetaloL 100 mg tablet (NORMODYNE) Take 50 mg by mouth 2 times daily. 1 Active atorvastatin 10 mg tablet (LIPITOR) Take 10 mg by mouth daily at bedtime. Active alcohol Pads, Medicated Alcohol Prep Pads USE TO CHECK BLOOD SUGAR DAILY Active Accu-Chek Guide test strips Strip 1 Active Accu-Chek Softclix Lancets 1 Active glucometer,pre- loaded strips (GLUCOSE METER, DISP & STRIPS MISC) by [facility].(Non-Drug; Combo Route) route. Active empagliflozin (Jardiance) 25 mg tablet Take 25 mg by mouth daily in the morning. Active lisinopriL (PRINIVIL) 20 mg tablet Take 20 mg by mouth daily. Active tamsulosin (FLOMAX) 0.4 mg capsule Take 0.4 mg by mouth daily at bedtime. Active lipase-protease -amylase DR (Katarina) 36,000-114,000- 180,000 unit capsule Take 1 Capsule by mouth 3 times daily with meals. Active clonazePAM (KlonoPIN) 1 mg tablet Take 1 mg by mouth nightly as needed for Anxiety. Active cholecalciferol , vitamin D3, 1,000 unit Take 1,000 Units by mouth daily. Active omega 5-mhn-fce-fish oil 360 mg-108 mg- 180 mg-1,200 mg Capsule Take 1 Capsule by mouth daily. Active FIBER, DEXTRIN, ORAL Take 1 Capful by mouth 2 times daily. Active cyanocobalamin, vitamin B-12, 2,500 mcg Tablet Take 2,500 mcg by mouth daily. Active tiZANidine (ZANAFLEX) 4 mg Tablet Take 1 Tablet (4 mg) by mouth every 6 hours as needed for Spasm. 90 Tablet 2 08/16/2024 12:07 PM FEDERAL JUDGE 4 Active sennosides (SENOKOT) 8.6 mg tablet Take 1 Tablet (8.6 mg) by mouth 2 times daily as needed for Constipation. 20 Tablet 08/16/2024 12:07 PM FEDERAL JUDGE 4 Active naloxone (NARCAN) 4 mg/spray [place], Non-Aerosol EMERGENCY USE ONLY: Administer 1 spray (4 mg) in one nostril one time. May repeat in alternating nostrils every 2-3 min until responsive or EMS arrives. 2 Each 3 4 Active predniSONE (DELTASONE) 10 mg tablet 6 tab PO QD x 1 day then 5 tabs PO QD x 1 day then 4 tab PO QD x 1 day then 3 tabs PO QD x 1 day then 2 tabs PO QD x 1 day then 1 tab PO QD then stop 21 Tablet 4 Active oxyCODONE-aceta minophen (PERCOCET) 5-325 mg tabletIndicatio ns:pain 1 to 2 tablets every 4 to 6 hours. 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 08/16/2024 Essential hypertension 08/16/2024 Status post spinal surgery 08/15/2024 Lumbar stenosis with neurogenic claudication 04/2024 Type 2 diabetes mellitus wit hout complication, without long-term current use of insulin 08/15/2024 SATURNINO (generalized anxiety disorder) 08/15/2024 Benign hypertension 08/15/2024 Other dietary vitamin B12 deficiency anemia 06/2021 Depression 08/03/2021 Hyperlipidemia 08/03/2021 Encounters Date Type Department Care Team Description 10/31/2024 Abstract [facility] On[facility] and Hematology - [address] [place] [phone] Lyndon Sandoval MD 10/31/2024 External Device Data ST[facility] ABSTRACTION Provider, Abstract 10/29/2024 External Device Data [facility] ABSTRACTION Provider, Abstract 10/22/2024 External Device Data [facility] ABSTRACTION Provider, Abstract 10/15/2024 External Device Data [place] ABSTRACTION Provider, Abstract 10/10/2024 10:30 AM FEDERAL JUDGE Office Visit [facility] [address] [place] [phone] HemmerGustavoopher, DISTRICT COURT JUDGE S/P lumbar fusion (Primary Dx) 10/10/2024 10:20 AM FEDERAL JUDGE Ancillary Procedure [facility] [address] [place] [address] [phone] HemGustavo medinaopher, DISTRICT COURT JUDGE S/P lumbar fusion 09/25/2024 Telephone [facility] [address] [place] [address] [phone] Eugene Mckeon MD Med Refill 08/29/2024 10:40 AM FEDERAL JUDGE Ancillary Procedure [facility] [address] [place] [address] [phone] HemLauri medina, DISTRICT COURT JUDGE S/P lumbar fusion 08/29/2024 10:30 AM FEDERAL JUDGE Office Visit [facility] [address] [place] [address] [phone] HemOtto medinaer, DISTRICT COURT JUDGE S/P lumbar fusion (Primary Dx) 08/20/2024 External Device Data STL ABSTRACTION Provider, Abstract 08/20/2024 Telephone [facility] [address] [place] [address] [phone] Eugene Mckeon MD Question 08/19/2024 Telephone [facility] [address] [place] [address] [phone] Eugene Mckeon MD CONCERN 08/16/2024 Travel 08/15/2024 2:30 PM FEDERAL JUDGE Anesthesia Event [facility] Operating Room [address] [place] [address] Kinjal Snowden MD [place], [place], NP 08/15/2024 1:10 PM FEDERAL JUDGE - 08/15/2024 3:40 PM FEDERAL JUDGE Surgery [facility] Operating Room [address] [place] [address] Eugene Mckeon MD POSTERIOR LUMBAR DECOMPRESSION AND FUSION WITH INSTRUMENTATION L4 TO L5 08/15/2024 9:47 AM FEDERAL JUDGE - 08/16/2024 12:42 PM FEDERAL JUDGE Hospital Encounter [facility] [address] [place] [address] Eugene Mckeon MD Lumbar stenosis with neurogenic claudication Discharge Disposition: Home or Self Care 08/09/2024 12:58 PM CDT - 08/09/2024 11:59 PM CDT Hospital Encounter [facility] Pre Surgical Assessment [address] [place] [phone] Eugnee Mckeon MD Discharge Disposition: Home or Self Care 08/06/2024 External Device Data STL ABSTRACTION Provider, Abstract 07/31/2024 Abstract [facility] [address] [facility] [address] [facility] [address] [place] [address] Eugene Mckeon MD Lumbar stenosis with neurogenic claudication (Primary Dx); Preoperative testing from Last 3 Months Family History Relation Name Status Comments Father Mother Social History Tobacco Use Types Packs/Day Years [...] Sign Reading Time Taken Comments Blood Pressure 112/70 10/10/2024 10:05 AM FEDERAL JUDGE Pulse 69 10/10/2024 10:05 AM FEDERAL JUDGE Temperature 36.1 ??C (97 ??F) 10/10/2024 10:05 AM FEDERAL JUDGE Respiratory Rate 16 10/10/2024 10:05 AM FEDERAL JUDGE Oxygen Saturation 98% 10/10/2024 10:05 AM FEDERAL JUDGE Inhaled Oxygen Concentration - - Weight 86 kg (189 lb 8 oz) 10/10/2024 10:[address] Height 182.9 cm (6') 10/10/2024 10:05 AM FEDERAL JUDGE Body Mass Index 25.7 10/10/2024 10:05 AM FEDERAL JUDGE Plan of Treatment Upcoming Encounters Date Type Department Care Team (Late st Contact Info) Description 11/19/2024 10:30 AM FEDERAL JUDGE Office Visit [facility] [address] [facility] [address] [facility] [address] [place] [phone] Lauri Tsai NP [address] [facility] [address] [place] [address] Health Maintenance Due Date Last Done Comments DIABETES ANNUAL FOOT EXAM 1967 DIABETES ANNUAL RETINAL EXAM 1967 DIABETES MICROALBUMIN ANNUAL SCREEN 1967 LDL CHOLESTEROL ANNUAL 1967 COLORECTAL SCREENING 1994 Colorectal Cancer Screening 1994 FIT-DNA Q 3 years 1994 FIT/FOBT Q 1 year 1994 Flex Sig/CT Colonography Q 5 years 1994 ZOSTER VACCINE (2 of 3) 09/05/2013 07/11/2013 Abdominal Aortic Aneurysm (A AA) Screening 2014 RSV VACCINE (60+ or ) (1 - 1-dose 75+ series) 2024 INFLUENZA VACCINE (#1) 2024 1, 07/15/2020, 07/22/2019, Additional history exists Traditional Medicare (ACO) A nnual Wellness Visit 05/25/2024 05/24/2023 DIABETES HBA1C Q 6 MONTHS 02/06/2025 08/09/2024 DTAP/TDAP/TD VACCINES (2 - T d or Tdap) 09/21/2027 09/21/2017 PNEUMOCOCCAL VACCINE 65+ YEARS Completed 09/21/2018 , 09/21/2017 Medical Devices Implanted Type Area Termite Helper Device Identifier Shelf Expiration Date Model / Serial / Lot Hemostatic Surgiflo 8ml W/ Thrombin 2994 - [id number] Implanted:Qty : 1 on 08/15/2024 by Eugene Mckeon MD at [facility] Hemostatic N/A: Spine Lumbar [employer] [id number] 10/08/2025 2994 / / [id number] Shank 6.5 X 45 Ats Thread Implanted:Qty : 4 on 08/15/2024 by Eugene Mckeon MD at [facility] Other N/A: Spine Lumbar [employer]- NEUROSURGERY [id number] / 08.15.24 / [id number] Description:1X ADD LG Chirag Cdh Ti Cp4 5.5x40mm Crvd [id number] - [id number] Implanted:Qty : 2 on 08/15/2024 by Eugene Mckeon MD at [facility] Chirag N/A: Spine Lumbar [employer]- SOFAMOR DANEK [id number] / / Description:NO Load informat ion available Mas Set Screw 4pk Implanted:Qty : 1 on 08/15/2024 by Eugene Mckeon MD at [facility] Screw N/A: Spine Lumbar [employer]- SOFAMOR DANEK 07/31/2028 [id number] / / [id number] Description:1X ADD LG Graft Alloflex [id number] Strip [id number] - [id number] Implanted:Qty : 1 on 08/15/2024 by Eugene Mckeon MD at [facility] Tissue N/A: Spine Lumbar [employer] [id number] 04/16/2028 [id number] / [id number] / Description:BR REQ#[id number] Graft Alloflex [id number] Strip [id number] - [id number] Implanted:Qty : 1 on 08/15/2024 by Eugene Mckeon MD at [facility] Tissue N/A: Spine Lumbar [employer] [id number] 08/13/2028 [id number] / [id number] / Description:FIDEL LY#[id number] Procedures Procedure Name Priority Date/Time Associated Diagnosis Comments XR LUMBAR SPINE 2 OR 3 VW Routine 08/29/2024 10:54 AM FEDERAL JUDGE S/P lumbar fusion POC GLUCOSE Routine 08/16/2024 8:26 AM FEDERAL JUDGE POC GLUCOSE Routine 08/15/2024 10:02 PM FEDERAL JUDGE POC GLUCOSE Routine 08/15/2024 5:30 PM FEDERAL JUDGE XR LUMBAR SPINE 1 VW Routine 08/15/2024 4:55 PM FEDERAL JUDGE XR LUMBAR SPINE 1 VW Routine 08/15/2024 3:18 PM FEDERAL JUDGE UT ARTHRODESIS POSTERIOR/PSTLAT TQ 1NTRSPC LUMBAR 08/15/2024 1:10 PM FEDERAL JUDGE LUMBAR STENOSIS WITH NEUROGENIC CLAUDICATION [M48.062] Special Needs PRONE POSITION, ANNE TABLE, OPEN KATE FRAME, SUPER SLIDE RETRACTOR, XRAY:LATERAL FLAT PLATE [employer] [facility] . DR LY 2 HRS MIQUEL CARREON AND SANDRITA NOTIFIED OF EQUIP POC GLUCOSE Routine 08/15/2024 10:23 AM FEDERAL JUDGE VERIFICATION BLOOD GROUP Stat 08/15/2024 10:16 AM FEDERAL JUDGE Elevated LFTs CBC WITH DIFFERENTIAL Routine 08/09/2024 2:21 PM CDT Lumbar stenosis with neurogenic claudication Preoperative testing TYPE AND SCREEN Routine 08/09/2024 2:17 PM CDT EXTRA TUBE (URINE HOLLAND) Routine 08/09/2024 2:17 PM CDT Lumbar stenosis with neurogenic claudication Preoperative testing COMPREHENSIVE METABOLIC PANEL Stat 08/09/2024 2:17 PM CDT Elevated LFTs HEMOGLOBIN A1C Routine 08/09/2024 2:17 PM CDT Lumbar stenosis with neurogenic claudication Preoperative testing URINALYSIS WITH REFLEX CULTURE Routine 08/09/2024 2:17 PM CDT Lumbar stenosis with neurogenic claudication Preoperative testing PROTIME-INR Routine 08/09/2024 2:17 PM CDT Lumbar stenosis with neurogenic claudication Preoperative testing PTT Routine 08/09/2024 2:17 PM CDT Lumbar stenosis with neurogenic claudication Preoperative testing EKG 12-LEAD Routine 08/09/2024 1:41 PM CDT Lumbar stenosis with neurogenic claudication Preoperative testing from Last 3 Months Results * XR LUMBAR SPINE 2 OR 3 VW (08/29/2024 10:54 AM FEDERAL JUDGE) Anatomical Region Laterality Modality Spine Computed Radiogr aphy Narrative 09/06/2024 5:32 PM FEDERAL JUDGE L-spine xray report: Clinical Indications: s/p lumbar fusion Technique: AP and lateral lumbar spine films were performed today in clinic and personally reviewed by me. ??My findings/interpretation are: There is no acute evidence of fracture or traumatic subluxation identified. ??Overall sagittal alignment shows some lumbar lordosis. ??AP alignment of the lumbar spine shows degenerative scoliosis. ?? Vertebrae show normal architecture Intervertebral disc spaces show significant degeneration and collapse at all levels. There is no abnormal movement on dynamic range of motion. There are postoperative changes of posterior instrumented fusion from L4 to L5 with bilateral transpedicular screws and stabilizing rods.There is no radiographic evidence to suggest hardware fracture or loosening. ??There is bone graft material in the posterior lateral recesses bilaterally. The sacroiliac joints appear symmetric. us Lauri Tsai DISTRICT COURT JUDGE DIAGNOSTIC IMAGING ORDERAB LES Final Result * (ABNORMAL) POC GLUCOSE (08/16/2024 8:26 AM FEDERAL JUDGE) Only the most recent of4 resultswithin the time period is included. GLUCOSE POC 116(H) 74 - 99 mg/dL 08/16/2024 8:26 AM FEDERAL JUDGE [facility] POINT OF CARE SPECIMEN SOURCE, GLUCOSE POC Whole Blood 08/16/2024 8:26 AM FEDERAL JUDGE [facility] POINT OF CARE Blood, whole 08/16/2024 8:26 AM FEDERAL JUDGE 08/16/2024 8:34 AM FEDERAL JUDGE Eugene Mckeon MD POINT OF CARE TESTING Final Re sult [facility] POINT OF CARE CLIA # [id number] [place] [address] * XR LUMBAR SPINE 1 VW (08/15/2024 4:55 PM FEDERAL JUDGE) Only the most recent of2 resultswithin the time period is included. Anatomical Region Laterality Modality Spine Computed Radiogr aphy 08/15/2024 4:55 PM FEDERAL JUDGE Narrative 08/15/2024 5:00 PM FEDERAL JUDGE EXAMINATION: XR LUMBAR SPINE 1 VW DATE: 08/15/2024 4:55 PM HISTORY: Low Back Pain COMPARISON: 08/15/2024 ?? FINDINGS: Intraoperative imaging is performed, targeted at the lumbar spine, with posterior approach hardware present. Please see operative report for procedure details. DICTATION LOCATION: [address] Procedure Note Gabriel Melton MD - 08/15/2024 EXAMINATION: XR LUMBAR SPINE 1 VW DATE: 08/15/2024 4:55 PM HISTORY: Low Back Pain COMPARISON: 08/15/2024 FINDINGS: Intraoperative imaging is performed, targeted at the lumbar spine, with posterior approach hardware present. Please see operative report for procedure details. DICTATION LOCATION: Location [address] [place] [address] Eugene Mckeon MD DIAGNOSTIC IMAGING ORDERABLES Final Result * VERIFICATION BLOOD GROUP (08/15/2024 10:16 AM FEDERAL JUDGE) ABO GROUP O 08/15/2024 11:36 AM FEDERAL JUDGE [facility] RH (D) TYPE Positive 08/15/2024 11:36 AM FEDERAL JUDGE [facility] Blood Venipuncture / Unknown 08/15/2024 10:16 AM FEDERAL JUDGE 08/15/2024 10:53 AM FEDERAL JUDGE Eugene Mckeon MD BLOOD BANK ORDERABLES Final Re sult [facility] CLIA# [id number] [place] [address] * (ABNORMAL) CBC WITH DIFFERENTIAL (08/09/2024 2:21 PM CDT) WBC 7.2 4.5 - 10.5 K/uL 08/09/2024 3:01 PM CDT [facility] RBC 4.23(L) 4.50 - 5.40 M/uL 08/09/2024 3:01 PM CDT [facility] HEMOGLOBIN 12.9(L) 13.6 - 16.5 g/dL 08/09/2024 3:01 PM CDT [facility] HEMATOCRIT 39.4(L) 40.0 - 48.0 % 08/09/2024 3:01 PM CDT [facility] MCV 93.1 82.0 - 99.0 fL 08/09/2024 3:01 PM CDT [facility] MCH 30.4 27.8 - 34.5 pg 08/09/2024 3:01 PM CDT [facility] MCHC 32.7 32.5 - 35.5 g/dL 08/09/2024 3:01 PM CDT [facility] RDW 13.9 11.5 - 14.5 % 08/09/2024 3:01 PM CDT [facility] PLATELETS 190 160 - 420 K/uL 08/09/2024 3:01 PM CDT [facility] MPV 9.1 8.7 - 12.7 fL 08/09/2024 3:01 PM CDT [facility] NEUTROPHILS 62 % 08/09/2024 3:01 PM CDT [facility] - [facility] LYMPHOCYTES 22 % 08/09/2024 3:01 PM CDT [facility] - [facility] MONOCYTES 14 % 08/09/2024 3:01 PM CDT [facility] - [facility] EOSINOPHILS 2 % 08/09/2024 3:01 PM CDT [facility] BASOPHILS 1 % 08/09/2024 3:01 PM CDT [facility] NEUTROPHIL ABSOLUTE 4.50 1.90 - 7.00 K/uL 08/09/2024 3:01 PM CDT [facility] LYMPHOCYTE ABSOLUTE 1.60 0.70 - 4.50 K/uL 08/09/2024 3:01 PM CDT [facility] MONOCYTE ABSOLUTE 1.00 0.10 - 1.30 K/uL 08/09/2024 3:01 PM CDT [facility] EOSINOPHIL ABSOLUTE 0.10 0.00 - 0.70 K/uL 08/09/2024 3:01 PM CDT [facility] BASOPHILS ABSOLUTE 0.00 0.00 - 0.20 K/uL 08/09/2024 3:01 PM CDT [facility] Blood Venipuncture / Unknown 08/09/2024 2:21 PM CDT 08/09/2024 2:59 PM CDT Eugene Mckeon MD HEMATOLOGY ORDERABLES Final Re sult [facility] CLIA# [id number] [place] [address] * EXTRA TUBE (URINE HOLLAND) (08/09/2024 2:17 PM CDT) Urine URINE SPECIMEN OBTAINED BY CLEAN CATCH PROCEDURE / Unknown Collection / Unknown 08/09/2024 2:17 PM CDT 08/09/2024 2:54 PM CDT Eugene Mckeon MD URINE ORDERABLES Final Result [facility] CLIA# [id number] [place] [address] * (ABNORMAL) URINALYSIS WITH REFLEX CULTURE (08/09/2024 2:17 PM CDT) COLOR UA Yellow Pale to Dark Yellow 08/09/2024 3:03 PM CDT [facility] CLARITY UA Clear Clear 08/09/2024 3:03 PM CDT [facility] SPECIFIC GRAVITY UA 1.025 1.003 - 1.035 08/09/2024 3:03 PM CDT [facility] PH UA 6.0 5.0 - 8.0 08/09/2024 3:03 PM CDT [facility] LEUKOCYTE ESTERASE UA Negative Negative 08/09/2024 3:03 PM CDT [facility] NITRITE UA Negative Negative 08/09/2024 3:03 PM CDT [facility] PROTEIN UA Negative Negative 08/09/2024 3:03 PM CDT [facility] GLUCOSE UA 3+(A) Negative 08/09/2024 3:03 PM CDT [facility] KETONES UA Negative Negative 08/09/2024 3:03 PM CDT [facility] UROBILINOGEN UA Normal <2.0 mg/dL 3:03 PM CDT [facility] BILIRUBIN UA Negative Negative 08/09/2024 3:03 PM CDT [facility] BLOOD UA Negative Negative 08/09/2024 3:03 PM CDT [facility] WBC UA 0-2 0 - 2 /hpf 08/09/2024 3:03 PM CDT [facility] RBC UA 0-2 0 - 2 /hpf 08/09/2024 3:03 PM CDT [facility] BACTERIA UA Negative Negative /hpf 08/09/2024 3:03 PM CDT [facility] EPITHELIAL CELLS, URINE 0-5 0 - 5 /hpf 08/09/2024 3:03 PM CDT [facility] HYALINE CAST None Seen None Seen, 0-2 /lpf 08/09/2024 3:03 PM CDT [facility] Urine URINE SPECIMEN OBTAINED BY CLEAN CATCH PROCEDURE / Unknown Collection / Unknown 08/09/2024 2:17 PM CDT 08/09/2024 2:54 PM CDT Eugene Mckeon MD URINE ORDERABLES Final Result Performing Organization Address City/[facility]/ZIP Co de Phone Number [facility] CLIA# [id number] [place] [address] * PTT (08/09/2024 2:17 PM CDT) PTT 34.1 23.1 - 37.1 seconds 08/09/2024 3:17 PM CDT [facility] Blood Venipuncture / Unknown 08/09/2024 2:17 PM CDT 08/09/2024 2:55 PM CDT Eugene Mckeon MD HEMATOLOGY ORDERABLES Final Re sult Performing Organization Address City/[facility]/ZIP Co de Phone Number [id number] [place] [address] * PROTIME-INR (08/09/2024 2:17 PM CDT) PROTIME 12.9 11.5 - 14.7 Seconds 08/09/2024 3:17 PM CDT [facility] INR 1.0 0.9 - 1.1 08/09/2024 3:17 PM CDT [facility] Blood Venipuncture / Unknown 08/09/2024 2:17 PM CDT 08/09/2024 2:55 PM CDT Eugene Mckeon MD HEMATOLOGY ORDERABLES Final Re sult [id number] [place] [address] * TYPE AND SCREEN (08/09/2024 2:17 PM CDT) ABO GROUP O 08/09/2024 4:11 PM CDT [facility] RH (D) TYPE Positive 08/09/2024 4:11 PM CDT [facility] ANTIBODY SCREEN Negative 4:11 PM CDT [facility] Comment:A verification is ne eded and the Type and Screen expiration date is 08/18/2024. Blood Venipuncture / Unknown 08/09/2024 2:17 PM CDT 08/09/2024 2:54 PM CDT Francisco Shirley MD BLOOD BANK ORDERABLES Edited Result - Final [facility] [id number] [place] [address] * (ABNORMAL) HEMOGLOBIN A1C (08/09/2024 2:17 PM CDT) HEMOGLOBIN A1C 6.5(H) <=5.6 % 08/09/2024 3:51 PM CDT [facility] EST. AVG GLUCOSE, A1C 140 mg/dL 08/09/2024 3:51 PM CDT [facility] Blood Venipuncture / Unknown 08/09/2024 2:17 PM CDT 08/09/2024 2:55 PM CDT Narrative [facility] - 08/09/2024 3:51 PM CDT HGB A1C INTERPRETATION NORMAL: ? <5.7% PRE-DIABETES: 5.7 - 6.4% DIABETES: ? 6.5% OR GREATER us Eugene Mckeon MD CHEMISTRY ORDERABLES Final Res ult [facility] CLADONIS# [id number] [place] [address] * (ABNORMAL) COMPREHENSIVE METABOLIC PANEL (08/09/2024 2:17 PM CDT) SODIUM 134(L) 136 - 145 mmol/L 08/09/2024 3:23 PM CDT [facility] POTASSIUM 4.1 3.4 - 5.1 mmol/L 08/09/2024 3:23 PM CDT [facility] CHLORIDE 103 98 - 107 mmol/L 08/09/2024 3:23 PM CDT [facility] CO2 19(L) 22 - 29 mmol/L 08/09/2024 3:23 PM CDT [facility] CALCIUM 9.3 8.6 - 10.4 mg/dL 08/09/2024 3:23 PM CDT [facility] BUN 34(H) 6 - 20 mg/dL 08/09/2024 3:23 PM CDT [facility] CREATININE 0.90 0.67 - 1.17 mg/dL 08/09/2024 3:23 PM CDT [facility] Comment:The GFR result is no t clinically significant on patients <18 or >70 years of age. GLUCOSE 102(H) 74 - 99 mg/dL 08/09/2024 3:23 PM CDT [facility] TOTAL PROTEIN 6.9 6.3 - 8.7 g/dL 08/09/2024 3:23 PM CDT [facility] ALBUMIN 4.2 3.5 - 5.2 g/dL 08/09/2024 3:23 PM CDT [facility] BILIRUBIN TOTAL 0.6 0.2 - 1.1 mg/dL 08/09/2024 3:23 PM CDT [facility] ALKALINE PHOSPHATASE 85 40 - 150 U/L 08/09/2024 3:23 PM CDT [facility] AST 36 0 - 41 U/L 08/09/2024 3:23 PM CDT [facility] ALT 40 0 - 41 U/L 08/09/2024 3:23 PM CDT [facility] [facility] GFR >60 mL/min/1.7 3 sq meter 08/09/2024 3:23 PM CDT [facility] Comment:eGFR calculated with 2020 CKD-EPI equation. Vegetarian diet, extremely high or low muscle mass, and may affect results. Cystatin C with Glomerular Filtration Rate is a suitable alternative for these patients. ANION GAP 12 8 - 16 mmol/L 08/09/2024 3:23 PM CDT [facility] Blood Venipuncture / Unknown 08/09/2024 2:17 PM CDT 08/09/2024 2:55 PM CDT Roscoe Mckinney MD CHEMISTRY ORDERABLES Final Result [facility] CLIA# [id number] [address] [place] [address] * EKG 12-LEAD (08/09/2024 1:41 PM CDT) 08/09/2024 1:41 PM CDT Narrative INTERFACE SYSTEM - 08/09/2024 4:30 PM CDT ? [facility] ? [address] [place] [address] ? Test Date: ?2024-08-09 Pat Name: ? SETH ARRIAZA ? Department: ?? 60 ?Room: ? Gender: ? Male ? Can Pusher: ?? AC : ?1950 ? Requested By: EUGENE Beltran Order Number: [id number] ? Reading MD: ?? Gabriel Marcus ? Measurements Intervals ?[place] ? Rate: ? 60 ? P: ?0 UT: ? 0 ?QRS: ?56 QRSD: ? 100 ?T: ?57 QT: ? 370 ? QTc: ?370 ? Interpretive Statements Normal Sinus Rhythm Early Precordial R/S Transition No previous ECG available for comparison Electronically Signed On 08-09-2024 16:30:00 CDT by Gabriel Marcus Procedure Note Gabrile Marcus MD - 08/09/[address] [address] Test Date: 2024-08-09 Pat Name: ESTH ARRIAZA Department: 60 Room: Gender: Male Can Pusher: EMILY : 1950 Requested By: EUGENE Beltran Order Number: [id number] Reading MD: Gabriel Marcus Measurements Intervals [place] Rate: 60 P: 0 UT: 0 QRS: 56 QRSD: 100 T: 57 QT: 370 QTc: 370 Interpretive Statements Normal Sinus Rhythm Early Precordial R/S Transition No previous ECG available for comparison Electronically Signed On 08-09-2024 16:30:00 CDT by Gabriel Marcus us Eugene Mckeon MD ECG ORDERABLES Final Result Performing Organization Address City/[facility] Co de Phone Number INTERFACE SYSTEM Refer to clinic/hospital department from Last 3 Months Insurance MEDICARE PART A AND B AETNA MEDICARE SUPP AESSI MEDICARE PART A AND B AETNA MEDICARE SUPP AESSI RX [employer] Medicare Part D Advance Directives For more information, please contact: [phone] * Full Code (Latest Code Status on File) Date Activated Date Inactivated Comments 08/15/2024 7:26 PM 08/16/2024 2:59 PM
== END 2024-10-30 09:33 | disposition home or self-care (01) ==
PROVIDERS: PCP Internal Medicine; Visit Provider Internal Medicine
DX: E11.9 Type 2 diabetes mellitus without complications (principal); I10 Essential (primary) hypertension; Z79.899 Other long term (current) drug therapy; Z13.29 Encounter for screening for other suspected endocrine disorder; E78.5 Hyperlipidemia, unspecified; E55.9 Vitamin D deficiency, unspecified; R41.3 Other amnesia; E53.9 Vitamin B deficiency, unspecified
CPT/HCPCS: 36415; 80053; 80061; 81003; 82306; 82607; 82746; 83036; 84439; 84443; 85025

== ENCOUNTER 2024-12-09 13:08 | Outpatient (CLI) | payer MEDICARE, SELFPAY ==
[2024-12-09 13:40] LABS: Basophils Absolute Auto 0.1 K/mm3 (0.0-0.1); Basophils Percent Auto 0.6 % (0.2-1.2); Eosinophils Absolute Auto 0.1 K/mm3 (0-0.3); Eosinophils Percent Auto 0.6 % (0-4.4); Hematocrit 42.9 % (42.0-52.0); Hemoglobin 13.9 g/dL (14.0-18.0); Immature Granulocyte Absolute 0.03 K/mm3 (0.00-0.031); Immature Granulocyte Percent A 0.3 % (0-0.5); Lymphocytes Absolute Auto 1.75 K/mm3 (0.9-3.2); Lymphocytes Percent Auto 18.4 % (18.3-44.2); Mean Corpuscular HGB Conc 32.4 g/dl (32-36); Mean Corpuscular Hemoglobin 29.6 pg (26-34); Mean Corpuscular Volume 91.5 fl (80-100); Mean Platelet Volume 10.1 fl (7.4-10.4); Monocytes Absolute Auto 1.1 K/mm3 (0.1-0.6); Monocytes Percent Auto 11.1 % (2.6-8.5); Neutrophils Absolute Auto 6.6 K/mm3 (1.3-6.7); Platelet Count Result 218 k/mm3 (150-375); Red Blood Count 4.69 M/mm3 (4.6-6.20); Red Cell Distribution Width 12.9 % (11.5-14.5); White Blood Count 9.5 K/mm3 (4.5-10.0)
[2024-12-09 14:19] LABS: Influenza A QL RT-PCR Negative (Negative); Influenza B QL RT-PCR Negative (Negative); SARS-CoV-2 RNA PCR Negative (Negative)
[2024-12-09 22:05] LABS: Hemoglobin A1C 6.5 % (<5.7)
== END 2024-12-09 13:09 | disposition home or self-care (01) ==
PROVIDERS: Visit Provider Internal Medicine
DX: R05.9 Cough, unspecified (principal); R50.9 Fever, unspecified; E11.9 Type 2 diabetes mellitus without complications; Z20.822 Contact with and (suspected) exposure to COVID-19
CPT/HCPCS: 36415; 71046; 83036; 85025; 87636

== ENCOUNTER 2024-12-10 13:58 | Outpatient (CLI) | payer MEDICARE, SELFPAY | END 2024-12-10 13:59 | disposition home or self-care (01) | PROVIDERS: PCP Internal Medicine; Visit Provider Internal Medicine | DX: R09.89 Other specified symptoms and signs involving the circulatory and respiratory systems (principal) | CPT/HCPCS: 93923 ==

== ENCOUNTER 2025-03-28 08:03 | Outpatient (CLI) | payer MEDICARE, SELFPAY ==
--- OUTSIDE RECORDS SUMMARY | 2025-03-28 08:07 | XMS_ITS | Clinical Summary ---
Author Organization [facility] [employer] Address [address] [place] [address] Care Team Providers Care Consumer Banker Name Role Phone Tung Leon MD Primary Care Provider Source Comments [facility] [employer],non-owned Affiliates and Associated Physician Practices is amultiple site organization consisting of ambulatory clinics and hospital sitesin [place], [place], [place] and [place]. This disclosure is being madepursuant to the Care Everywhere program and may not contain all information available regarding this patient. Last updated 18.[facility] [employer] Allergies No known active allergies Medications * Be aware that medications may not be up to date on this document. Alwaysverify current medications with the patient. aspirin (ASPIRIN) 81 MG tablet Take 1 (one) tablet by mouth DAILY 7 Active atorvastatin (Lipitor) 20 MG tablet Take [...] 65 mg by mouth once daily Active [place]-3 Fatty Acids (fish oil) 1000 MG capsule Acti ve Calcium Polycarbophil (FIBER-CAPS PO) Take 8 capsules [...] at Not on file Legal Sex Male 5:23 PM CUTLERY GRINDER Gender Identity Not on file Sexual Orientation Not on file Last Filed Vital Signs Vital Sign Reading Time Taken Comments Blood Pressure 141/84 09/22/2022 8:53 AM CUTLERY GRINDER Pulse 63 09/22/2022 8:53 AM CUTLERY GRINDER Temperature 36.4 C (97.6 F) 09/22/2022 8:53 AM CUTLERY GRINDER Respiratory Rate 18 09/22/2022 8:53 AM CUTLERY GRINDER Oxygen Saturation 100% 09/22/2022 8:53 AM CUTLERY GRINDER Inhaled Oxygen Concentration - - Weight 89.4 kg (197 lb) 09/22/2022 8:53 AM CUTLERY GRINDER Height 186.7 cm (6' 1.5) 11/05/2018 1:24 PM CUTLERY GRINDER Body Mass Index 25.64 11/05/2018 1:24 PM CUTLERY GRINDER Plan of Treatment Health Maintenance Due Date Last Done Comments COLOGUARD (AGES 45-75) - COLON CA SCREENING 1950 COLON MONITORING 1950 COLONOSCOPY - COLON CA SCREENING 1950 CT COLONOGRAPHY - COLON CA SCREENING 1950 Colorectal Cancer Screening 1950 FIT - COLON CA SCREENING 1950 FLEX SIG - COLON CA SCREENING 1950 MEDICARE AWV 12 MONTHS 1950 HEPATITIS C SCREENING 04/25/1967 DTAP/TDAP/TD VACCINES (1 - Tdap) 1968 PNEUMOCOCCAL VACCINE 50+ (1 of 1 - PCV) 1999 ZOSTER VACCINE (1 of 2) 1999 Respiratory Syncytial Virus (RSV) Vaccine Pt: or over 60 yrs (1 - 1-dose 75+ series) 2024 COVID-19 VACCINE (2 - season) 2024 09/03/2021 DEPRESSION SCREENING 10/09/2024 INFLUENZA VACCINE (Season Ended) 2025 07/15/2020, 07/13/2018, 07/28/2017, Additional history exists HEPATITIS B VACCINE Aged Out No longe r eligible based on patient's age to complete this topic HIB VACCINE Aged Out No longer eligi ble based on patient's age to complete this topic HPV VACCINE Aged Out No longer eligi ble based on patient's age to complete this topic MENINGOCOCCAL (Group B) VACCINE SHARED DECISION-MAKING Aged Out No longer eligible based on patient's age to complete this topic MENINGOCOCCAL GROUPS A/C/Y/W VACCINE Aged Out No longer eligible based on patient's age to complete this topic [place] [address] AETNA MEDICARE AET MEDICARE Care Teams Consumer Banker Relationship Specialty Start Date End Date Tung Leon MD [address] [address] [facility] - General 11/05/18
--- OUTSIDE RECORDS SUMMARY | 2025-03-28 08:07 | XMS_ITS | Clinical Summary ---
Author Organization [facility] Address [address] [place] [address] Care Team Providers Care Belly Roller Name Role Phone Unavailable Primary Care Provider [...] (GLUCOSE METER, DISP & STRIPS MISC) by [facility]Non-Drug; Combo Route) route. Active empagliflozin (Jardiance) 25 [...] 1,000 Units by mouth daily. Active omega 2-onq-txm-fish oil 360 mg-108 mg- 180 mg-1,200 mg [...] Spasm. 90 Tablet 2 08/16/2024 12:07 PM DIRECTOR OF MATERIALS 4 Active Additional Information Patient not taking.Reported on 02/18/2025 sennosides (SENOKOT) 8.6 mg tablet Take 1 Tablet (8.6 mg) by mouth 2 times daily as needed for Constipation. 20 Tablet 08/16/2024 12:07 PM DIRECTOR OF MATERIALS 4 Active naloxone (NARCAN) 4 mg/spray [place], Non-Aerosol EMERGENCY USE ONLY: Administer 1 spray [...] tablets per day 60 Tablet 4 Active Additional Information Patient not taking.Reported on 02/18/2025 gabapentin 600 mg tablet (NEURONTIN) Take by mouth 3 times daily. 5 Active omeprazole (PriLOSEC) 20 mg Capsule, Delayed Release(E.C.) Take 1 Capsule by mouth daily. 5 Active Active Problems Problem Noted Date Diagnosed [...] Encounters Date Type Department Care Team Description 03/11/2025 External Device Data ST[facility] ABSTRACTION Provider, Abstract 03/04/2025 External Device Data ST[facility] ABSTRACTION Provider, Abstract 02/27/2025 External Device Data ST[facility] ABSTRACTION Provider, Abstract 02/26/2025 External Device Data ST[facility] ABSTRACTION Provider, Abstract 02/25/2025 External Device Data STL ABSTRACTION Provider, Abstract 02/18/2025 10:00 AM CDT Office Visit [facility] [address] [address] Lauri Tsai NP S/P lumbar fusion (Primary Dx) 02/18/2025 7:50 AM CDT Ancillary Procedure [facility] [address] [address] Lauri Tsai NP S/P lumbar fusion from Last 3 Months Family History Relation [...] No 08/15/2024 Food Insecurity Answer Date Recorded Patient needs follow up regardin 02/09/2025 Transportation Needs Answer Date Record ed Patient needs follow up regardin 02/09/2025 Housing Stability Answer Date Recorded Social/Environmental Concerns No concerns Utility Needs Answer Date Recorded Patient needs follow up regardin 02/09/2025 Sex and Gender Information Value Date Recorded Sex Assigned at Not on file Legal Sex Male 10:35 AM CDT Gender Identity Not on file Sexual Orientation Not on file Last Filed Vital Signs Vital Sign Reading Time Taken Comments Blood Pressure 109/73 02/18/2025 10:10 AM CDT Pulse 58 02/18/2025 10:10 AM CDT Temperature 36.1 C (97 F) 02/18/2025 10:10 AM CDT Respiratory Rate 16 02/18/2025 10:10 AM CDT Oxygen Saturation 98% 11/19/2024 10:36 AM DIRECTOR OF MATERIALS Inhaled Oxygen Concentration - - Weight 88 kg (194 lb) 02/18/2025 10:10 AM CDT Height 182.9 cm (6') 02/18/2025 10:10 AM CDT Body Mass Index 26.31 02/18/2025 10:10 AM CDT Plan of Treatment Upcoming Encounters Date Type Department Care Team (Late st Contact Info) Description 08/19/2025 10:00 AM DIRECTOR OF MATERIALS Office Visit [facility] [address] [facility] [address] [place] [address] Lauri Tsai NP [address] [facility] [address] [place] [address] Health Maintenance Due Date Last Done Comments DIABETES ANNUAL FOOT EXAM 1967 DIABETES MICROALBUMIN ANNUAL SCREEN 1967 LDL CHOLESTEROL ANNUAL 1967 FIT-DNA Q 3 years 1994 FIT/FOBT Q 1 year 1994 Flex Sig/CT Colonography Q 5 years 1994 ZOSTER VACCINE (2 of 3) 09/05/2013 07/11/2013 Abdominal Aortic Aneurysm (A AA) Screening 2014 DIABETES ANNUAL RETINAL EXAM 06/30/2022 06/30/2021 RSV VACCINE (60+ or ) (1 - 1-dose 75+ series) 2024 INFLUENZA VACCINE (#1) 2024 , 07/15/2020, 07/22/2019, Additional history exists DIABETES HBA1C Q 6 MONTHS 02/06/20252023, 07/12/2023, 04/20/2023, Additional history exists DTAP/TDAP/TD VACCINES (2 - T d or Tdap) 09/21/2027 09/21/2017 COLORECTAL SCREENING 08/25/2033 08/25/2023, 05/07/2020, 05/07/2020, Additional history exists Colorectal Cancer Screening 08/25/2033 PNEUMOCOCCAL VACCINE 50+ YEARS Completed 09/21/2018 , 09/21/2017 Medical Devices Implanted Type Area Proofing Machine Operator Device Identifier Shelf Expiration Date Model / Serial / Lot Hemostatic Surgiflo 8ml W/ Thrombin 2994 - [id number] Implanted:Qty : 1 on 08/15/2024 by Benito Mckeon MD at [facility] Hemostatic N/A: Spine Lumbar [employer] [id number] 10/08/2025 [id number] / / [id number] Shank 6.5 X 45 Ats Thread Implanted:Qty : 4 on 08/15/2024 by Benito Mckeon MD at [facility] Other N/A: Spine Lumbar [employer]- NEUROSURGERY [id number] / 08.15.24 / [id number] Description:1X ADD LG Chirag Cdh Ti Cp4 5.5x40mm Crvd [id number] - [id number] Implanted:Qty : 2 on 08/15/2024 by Benito Mckeon MD at [facility] Chirag N/A: Spine Lumbar [employer]- SOFAMOR DANEK [id number] / / Description:NO Load informat ion available Mas Set Screw 4pk Implanted:Qty : 1 on 08/15/2024 by Benito Mckeon MD at [facility] Screw N/A: Spine Lumbar [employer]- SOFAMOR DANEK 07/31/2028 [id number] / / [id number] Description:1X ADD LG Graft Alloflex [id number] Strip [id number] - [id number] Implanted:Qty : 1 on 08/15/2024 by Benito Mckeon MD at [facility] Tissue N/A: Spine Lumbar [employer] [id number] 04/16/2028 [id number] / [id number] / Description:BR REQ#[id number] DJ Graft Alloflex [id number] Strip [id number] - [id number] Implanted:Qty : 1 on 08/15/2024 by Benito Mckeon MD at [facility] N/A: Spine Lumbar [employer] [id number] 08/13/2028 [id number] / [id number] / Description:FIDEL REPrincess#[id number] DJ Procedures Procedure Name Priority Date/Time Associated Diagnosis Comments XR LUMBAR SPINE 2 OR 3 VW Routine 02/18/2025 10:23 AM CDT S/P lumbar fusion HEMOGLOBIN A1C Routine 08/09/2024 2:17 PM CDT Lumbar stenosis with neurogenic claudication Preoperative testing from Last 3 Months or Most Recently Relevant to Health Maintenance Results * XR LUMBAR SPINE 2 OR 3 VW (02/18/2025 10:23 AM CDT) Anatomical Region Laterality Modality Spine Computed Radiogr aphy Narrative 03/19/2025 2:16 PM CDT L-spine xray report: Clinical Indications: s/p lumbar fusion Technique: AP and lateral lumbar films were performed today in clinic and personally reviewed by me. My findings/interpretation are: There is no acute evidence of fracture or traumatic subluxation identified. Overall sagittal alignment shows some lumbar lordosis. AP alignment of the lumbar spine shows degenerative scoliosis. Vertebrae show normal architecture. There is a mild lateral listhesis of L3 on L4 to the left. Intervertebral disc spaces show significant degeneration and collapse at all levels. There are postoperative changes of posterior instrumented fusion from L4 to L5 with bilateral transpedicular screws and stabilizing rods.There is bone graft material in the bilateral posterolateral recesses at this level. There is no radiographic evidence to suggest hardware fracture or loosening. The sacroiliac joints appear symmetric. Lauri Tsai BOX PRESS OPERATOR DIAGNOSTIC IMAGING ORDERAB LES Final Result * (ABNORMAL) HEMOGLOBIN A1C (08/09/2024 2:17 PM CDT) HEMOGLOBIN A1C 6.5(H) <=5.6 % 08/09/2024 3:51 PM CDT [facility] EST. AVG GLUCOSE, A1C 140 mg/dL 08/09/2024 3:51 PM CDT [facility] Blood Venipuncture / Unknown 08/09/2024 2:17 PM CDT 08/09/2024 2:55 PM CDT Narrative [facility] - 08/09/2024 3:51 PM CDT HGB A1C INTERPRETATION NORMAL: <5.7% PRE-DIABETES: 5.7 - 6.4% DIABETES: 6.5% OR GREATER Benito Mckeon MD CHEMISTRY ORDERABLES Final Res ult [facility] CLIA# [id number] [address] [place] [address] from Last 3 Months or Most Recently Relevant to Health Maintenance Insurance MEDICARE PART A AND B AETNA MEDICARE SUPP AESSI MEDICARE PART A AND B AETNA MEDICARE SUPP AESSI RX [employer] Medicare Part D Advance Directives For more information, please contact: [phone] * Full Code (Latest Code Status on File) Date Activated Date Inactivated Comments 08/15/2024 7:26 PM 08/16/2024 2:59 PM
--- OUTSIDE RECORDS SUMMARY | 2025-03-28 08:07 | XMS_ITS | Continuity of Care Document ---
Author Organization [facility] Address [address] [address] [facility] [address] [place] [address] Phone Care Team Providers Care Animal Maintenance Supervisor Name Role Phone Anmol Vera MD Unavailable Unavailable Advance Directives Directive Yes / No Effective Date File Name No Information Encounters Encounter Description Practice Location Reason(s) For Visit Diagnoses Date Provider Providers Copied on Encounter [facility], [address], [place], [place], [id number], [place] tel:[phone] [facility] No Information 2-[address] Jody Corea. [address] [facility] [address] [place], [place], [id number], [place]. tel:[phone] Family History Family Member Type Diagnosis Age At Onset No Information Payers Payer name Insurance type Covered green party ID Authoriza tion(s) No Information Social [...]
--- OUTSIDE RECORDS SUMMARY | 2025-03-28 08:08 | XMS_ITS | Data Portability ---
Author Organization [place] - [facility] [employer], Main Office Address [address] [place] [address] Care Team Providers Care Buckle Strap Puncher Name Role Phone TUNG LEON Primary Care Provider TUNG LEON Referring Provider Assessment Encounter Date Assessment Date Assessment LastModified by Organization Details LastModified Time 04/19/2023 04/19/2023 12/26/2022: PSA 0.57 A1C 6.3 H/H 12.3/38.8 HDL 39 Gluc 114 04/13/2023: CMP: BUN 22 H/H 11.8/36.6 janessa Not available 04/19/2023 11:38:20 05/16/2023 05/16/2023 This note is dictated and transcribed by MMD[employer] Fluency Direct Software. Escapement Maker variances may occur. Despite proofreading, typographical errors may occur. [email or web address] Not available 05/16/2023 10:26:20 05/24/2023 05/24/2023 12/26/2022: PSA 0.57 A1C 6.3 H/H 12.3/38.8 HDL 39 Gluc 114 04/13/2023: CMP: BUN 22 H/H 11.8/36.6 04/20/2023: A1C 6.2 H/H 12.3/38.7 Mawv portion completed by Devin Roque RN under supervision of Dr Carolyn riddle Not available 05/24/2023 10:38:18 Plan of Treatment Reminders Order Date Submit Date Provider Last Modified By Organization Details Last Modified Time Details Appointments None recorded. Lab lipid panel, serum 2022 023 [email or web address] 6 [facility] (Lab), [address] [place], [address], 4 17:45:40 CBC w/ auto diff 2022 023 [email or web address] 6 [facility] (Lab), [address] [place], [address], 4 17:45:40 CMP, serum or plasma 2022 023 [email or web address] 6 [facility] (Lab), [address] [place], [address], 4 17:45:40 TSH, serum or plasma 2022 023 [email or web address] 6 [facility] (Lab), [address] [place], [address], 4 17:45:40 vitamin B12 + folate, serum or blood 2022 023 [facility] (Lab), [address] [place], [address], 3 16:42:36 glycohemogl obin, total, blood 2022 023 [email or web address] (Lab), [address] [place], [address], 4 17:45:39 microalbumi n, urine [email or web address] [place] [address] (Lab), [address] [place], [address], 4 17:45:40 glycohemogl obin, total, blood 2022 023 [place] [facility] (Lab), [address] [place], [address], 3 17:47:22 microalbumi n, urine 2022 023 [facility] (Lab), [address] [place], [address], 3 12:16:48 vitamin B12 + folate, serum or blood 2022 023 [facility] [address] [place], [address], 3 16:42:36 lipid panel, serum [email or web address] (Lab), [address] [place], [address], 4 09:13:52 CBC w/ auto diff 2022 023 [facility] (Lab), [address] [place], [address], 3 11:17:54 CMP, serum or plasma 2022 023 [email or web address] [address] [place] [address] (Lab), [address] [place], [address], 4 09:13:53 TSH, serum or plasma 2022 023 [email or web address] [address] [place] [address] (Lab), [address] [place], [address], 4 09:13:53 Referral gastroenter ologist referral 2022 023 wilfred Goldman MD, [address], [place], [address], 3 16:40:32 hematologis t referral 2022 023 wilfred Sandoval MD, [address], [place], [address], 3 16:40:55 insurance claim auditor referral 2022 023 [email or web address] Robin DPM, [address], [address], [place], [address], 3 16:39:51 gastroenter ologist referral 2022 023 [email or web address] 6 Omid Goldman MD, [address], [address], [place], [address], 4 08:46:53 insurance claim auditor referral 2022 023 wilfred Robin DPM, [address], [place], [address], 3 14:04:55 hematologis t referral 2022 023 wilfred Sandoval MD, [address], [place], [address], 3 14:05:48 Procedures injection/a spiration joint/bursa (PROC) - in office procedure, administere d by provider 2022 023 [email or web address] 3 In-Office Order, Internal Use Only DO Not Attach Compendium DO Not Attach Compendium, Do Not Delete/merge, [id number] 3 10:01:02 Surgeries None recorded. Imaging XR, hand, 3 or more view 2022 023 [email or web address] [facility], [facility] [facility] [address], [place], [address], 3 10:05:34 Medication Orders Farxiga 10 mg tablet 2022 023 [facility], [address] [facility], [place], [address], 3 10:40:11 Kenalog 10 mg/mL suspension for injection [address] [facility], [address] [place], [address], 3 11:23:36 ropivacaine (PF) 5 mg/mL (0.5 %) injection solution [address] [facility], [address] [place], [address], 3 11:23:44 Augmentin 875 mg-125 mg tablet [email or web address] [facility], [address] [place] [address], [address], 3 09:37:40 Patient TargetsNo targets recorded. Patient Instructions Encounter Date Encounter Id Patient Instructions Last Modified By Organization Details Last Modified Time 04/19/2023 [id number] diabetic eye exam* [email or web address] Not availa ble 10/19/2023 12:18:16 05/24/2023 [id number] dementia rating scale-2* [email or web address] 2 Not available 05/24/2023 10:40:04 depression screening* [email or web address] 2 Not available 05/24/2023 10:40:04 alcohol misuse* [email or web address] 2 Not available 05/24/2023 10:40:03 Timed Up and Go test (TUG)* [email or web address] 2 Not available 05/24/2023 10:40:04 multi-dimensiona l health assessment questionnaire* [email or web address] 2 Not available 05/24/2023 10:40:04 advance directiv es: care instructions alicia 2 Not available 05/24/2023 10:40:04 diabetic eye exam* [email or web address] Not availa ble 05/21/2024 17:45:17 Personalized a [facility] Plan and Screening Recommendations Advance Directives - Do you have one? Yes Advance Directives - Do we have your advance directive on file in your health record? Primary Prevention/Interven tion (prevents or decreases the chance of common diseases from occurring) Smoking Risk: Non Smoker Alcohol Misuse Screening: Negative Weight: Appropriate Physical activity: Appropriate physical activity minimum of 20-30 minutes activity that causes mild breathlessness/day Nutrition: Average Refer to attached handout Heart-Healthy Diet: After Your Visit Fall Risk (screened today): Low Refer to attached handout Preventing Falls: After your Visit Vaccines Pneumococcal: No further needed Influenza: Your next one in the fall of this year Chronic Disease Risks Stroke: Intermediate Risk Active diagnosis, Continue current treatment plan Heart Attack: Intermediate Risk Active diagnosis, Continue current treatment plan Clogging of the Arteries: Intermediate Risk Active diagnosis, Continue current treatment plan Diabetes: Low Risk I have no recommendations Secondary Prevention/Interven tion (detects treatable diseases before they may cause symptoms, disability, or ) Prostate Cancer Screening: Your next PSA in: 12/2023 No digital rectal exam screening necessary Colon Cancer Screening: Colonoscopy In: 2024 Date Screening Last Performed: __2019 Eye Disease Screening: Recommended annually Dementia Risk: Low I have no recommendations Depression Screening: Negative [email or web address] Not available 05/24/2023 10:21:39 Reason for Referral Fixed Route Operator Referral for Type 2 diabetes mellitus without complication Referring Physician: Tung Leon Internal Medicine, Encounter Date: 04/19/2023 Parking Meter Attendant Referral for Abdominal pain Referring Physician: Raji Lugo Medicine, Encounter Date: 04/19/2023 Referring Physician: Raji Lugo, Encounter Date: 04/19/2023 Fixed Route Operator Referral for Type 2 diabetes mellitus without complication Referring Physician: Raji Lugo, Encounter Date: 05/24/2023 Parking Meter Attendant Referral for Abdominal pain Referring Physician: Raji Lugo, Encounter Date: 05/24/2023 Referring Physician: Raji Lugo, Encounter Date: 05/24/2023 Results Created Date Observation Date Name Description Value Unit Range Abnormal Flag Note LastModifiedBy Organization Detail LastModifiedTime 04/12/20 23 04/12/2023 BUN/B LOOD UREA NITRO GEN BUN 23 mg/dL 8-19 high Not Available [facility] (Lab) [address] [place], [address], 04/12/2023 10:10:35 04/12/20 23 04/12/2023 CREAT ININE creatinine 0.78 mg/dL 0.66-1 .25 Not Available [facility] (Lab) [address] [place], [address], 04/12/2023 10:10:43 04/12/20 23 04/12/2023 CREAT ININE GFR >60 Refer ence Range : [place] ge GFR Healt hy Adult : >60 mL/mi n/1.7 3 m2 Chron ic Kidne y Disea se: 15-60 mL/mi n/1.7 3 m2 Kidne y Failu re: <15/m L/min /1.73 m2 www.n iddk. nih.g ov The MDRD study equat ion has not been valid ated in child otilio <18 years of age; pregn ant women ; the elder ly >85 years of age; or in some racia l or ethni c subgr oups, such as ma nics. Outsi de the valid ated monster eters , estim ated GFR is less accur ate, requi ring clini alexis judgm ent on a case- by-ca se basis . Clini alexis inter preta tion for other races and ages must be made by the clini floyd. The MDRD study equat ion has not been valid ated for the evalu ation of serum creat inine relat ed to nutri george l statu s or medic ation usage . For perso ns <18 years of age, a pedia tric GFR calcu lator is avail able on the [facility] websi te: https ://ranjit w.estrella spauldingy.o rg/pr ofess ional s/kdo qi/gf r_cal culat or Not Available [facility] (Lab) [address] [place], [address], 04/12/2023 10:10:43 04/20/2004/20/2023 CBC/C OMPLE TE BLD COUNT W/DIF F white blood cells 7.3 x10'3 /uL 4.2-10 .8 Not Available [facility] (Lab) [address] [place], [address], 04/20/2023 11:17:54 04/20/20 23 04/20/2023 CBC/C OMPLE TE BLD COUNT W/DIF F red blood cells 4.06 x10'6 /uL 4.10-5 .80 low Not Available [facility] (Lab) [address] [place], [address], 04/20/2023 11:17:54 04/20/20 23 04/20/2023 CBC/C OMPLE TE BLD COUNT W/DIF F hemoglobin 12.3 g/dL 13.2-1 7.0 low Not Available [facility] (Lab) [address] [place], [address], 04/20/2023 11:17:54 04/20/20 23 04/20/2023 CBC/C OMPLE TE BLD COUNT W/DIF F hematocrit 38.7 % 39.3-5 0.0 low Not Available [facility] (Lab) [address] [place], [address], 04/20/2023 11:17:54 04/20/20 23 04/20/2023 CBC/C OMPLE TE BLD COUNT W/DIF F mean red cell volume 95.3 fL 80.0-9 7.0 Not Available [facility] (Lab) [address] [place], [address], 04/20/2023 11:17:54 04/20/20 23 04/20/2023 CBC/C OMPLE TE BLD COUNT W/DIF F mean red cell hemoglobin 30.3 pg 27.0-3 3.0 Not Available [facility] (Lab) [address] [place], [address], 04/20/2023 11:17:54 04/20/20 23 04/20/2023 CBC/C OMPLE TE BLD COUNT W/DIF F mean RBC HGB concentratio n 31.8 g/dL 31.0-3 6.0 Not Available [facility] (Lab) [address] [place], [address], 04/20/2023 11:17:54 04/20/20 23 04/20/2023 CBC/C OMPLE TE BLD COUNT W/DIF F red cell distribution width 13.3 % 11.8-1 5.5 Not Available [facility] (Lab) [address] [place], [address], 04/20/2023 11:17:54 04/20/20 23 04/20/2023 CBC/C OMPLE TE BLD COUNT W/DIF F platelets 193 x10'3 /uL 150-40 0 Not Available [facility] (Lab) [address] [place], [address], 04/20/2023 11:17:54 04/20/20 23 04/20/2023 CBC/C OMPLE TE BLD COUNT W/DIF F mean platelet volume 12.2 fL 9.0-12 .4 Not Available [facility] (Lab) [address] [place], [address], 04/20/2023 11:17:54 04/20/20 23 04/20/2023 CBC/C OMPLE TE BLD COUNT W/DIF F neutrophils 65.2 % 39.0-7 2.0 Not Available [facility] (Lab) [address] [place], [address], 04/20/2023 11:17:54 04/20/20 23 04/20/2023 CBC/C OMPLE TE BLD COUNT W/DIF F lymphocytes 20.0 % 16.0-4 7.0 Not Available [facility] (Lab) [address] [place], [address], 04/20/2023 11:17:54 04/20/20 23 04/20/2023 CBC/C OMPLE TE BLD COUNT W/DIF F monocytes 11.9 % 5.0-12 .0 Not Available [facility] (Lab) [address] [place], [address], 04/20/2023 11:17:54 04/20/20 23 04/20/2023 CBC/C OMPLE TE BLD COUNT W/DIF F eosinophils 1.9 % 1.0-7. 0 Not Available [facility] (Lab) [address] [place], [address], 04/20/2023 11:17:54 04/20/20 23 04/20/2023 CBC/C OMPLE TE BLD COUNT W/DIF F basophils 0.7 % 0.0-2. 0 Not Available [facility] (Lab) [address] [place], [address], 04/20/2023 11:17:54 04/20/20 23 04/20/2023 CBC/C OMPLE TE BLD COUNT W/DIF F immature granulocytes 0.3 % 0.00-0 .50 Not Available [facility] (Lab) [address] [place], [address], 04/20/2023 11:17:54 04/20/20 23 04/20/2023 CBC/C OMPLE TE BLD COUNT W/DIF F neutrophils, absolute count 4.73 x10'3 /uL 1.5-8. 0 Not Available [facility] (Lab) [address] [place], [address], 04/20/2023 11:17:54 04/20/20 23 04/20/2023 CBC/C OMPLE TE BLD COUNT W/DIF F lymphocytes, absolute count 1.45 x10'3 /uL 1.07-3 .43 Not Available [facility] (Lab) [address] [place], [address], 04/20/2023 11:17:54 04/20/20 23 04/20/2023 CBC/C OMPLE TE BLD COUNT W/DIF F monocytes, absolute count 0.86 x10'3 /uL 0.29-0 .99 Not Available [facility] (Lab) [address] [place], [address], 04/20/2023 11:17:54 04/20/20 23 04/20/2023 CBC/C OMPLE TE BLD COUNT W/DIF F eosinophils, absolute count 0.14 x10'3 /uL 0.02-0 .53 Not Available [facility] (Lab) [address] [place], [address], 04/20/2023 11:17:54 04/20/20 23 04/20/2023 CBC/C OMPLE TE BLD COUNT W/DIF F basophils, absolute count 0.05 x10'3 /uL 0.01-0 .08 Not Available [facility] (Lab) [address] [place], [address], 04/20/2023 11:17:54 04/20/2004/20/2023 CBC/C OMPLE TE BLD COUNT W/DIF F immature granulocytes ,absolute 0.02 x10'3 /uL 0.00-0 .05 Not Available [facility] (Lab) [address] [place], [address], 04/20/2023 11:17:54 04/20/20 23 04/20/2023 CBC/C OMPLE TE BLD COUNT W/DIF F nucleated red blood cells 0.0 % -0 Not Available [facility] (Lab) [address] [place], [address], 04/20/2023 11:17:54 04/20/20 23 04/20/2023 CBC/C OMPLE TE BLD COUNT W/DIF F NRBC# 0.00 x10'3 /uL Not Available [facility] (Lab) [address] [place], [address], 04/20/2023 11:17:54 04/20/20 23 04/20/2023 MICRO ALBUM IN RANDO M URINE microalbumin , urine 10.4 mg/L 0.0-16 .6 Not Available [facility] (Lab) [address] [place], [address], 04/20/2023 12:16:48 04/20/20 23 04/20/2023 HEMOG LOBIN A1C HA1C 6.2 % 4.0-6. 0 high Diabe antonio Scree mandy Crite laxmi: <5.7% Consi stent with absen ce of diabe antonio 5.7-6 .4% Consi stent with incre ased risk for diabe antonio (pred iabet es) >OR=6 .5% Consi stent with diabe antonio REFER ENCE: Diabe antonio Care 2016, 39(Alvarado ppl.1 ):s13 -s22 Not Available [facility] (Lab) [address] [place], [address], 04/20/2023 17:47:22 02/08/20 23 XR, hand, 3 or more view No observ ation record ed. [email or web address] [facility] [place] [address], [place], [address], 02/07/2023 10:05:33 04/12/20 23 04/12/2023 CT, abdom en + pelvi s, w/ contr ast [facility] [address] [place], [place] [address] [phone] Patien t Name: PAM ARRIAZA Access ion #: [id number] Sex: M : 1949 [facility] #: [id number] 1 Dictat ed By: Toney angeles Attend ing Physic omid: TITI BRO Orderjack Physic omid: RALPH MOODY Exam Date: 2022 09:19 AM Exam Name: CT ABDOME N PELVIS W Admitt ing Diagno sis(es ): CLINIC AL INFORM ATION: Lower abdomi nal pain and diarrh ea. Weight loss. Loss of appeti te. TECHNI QUE: Axial CT images of the abdome n and pelvis were obtain ed after the uneven tful admini strati on of 100 mL Isovue [address] The patien t also ingest ed 900 mL barium oral contra st prior to the examin ation. Fleming l and sagitt al reform atted images were obtain ed, review ed, and stored . One or more of the follow ing dose reduct ion techni ques were used: Automa blanca exposu re contro l. Adjust ment of mA and/or kV accord ing to patien t size. CTDIvo l = 15.09 mGy DLP = 868.9 mGy-cm COMPAR RODNEY: No prior CT. FINDIN GS: Lung bases: Atelec tasis in the lung bases. Liver: Hepati c steato sis. Biliar y: No calcif ied gallst ones or biliar y ductal dilata tion. Spleen : Multip le calcif ied granul omas in the spleen . Pancre as: Calcif icatio ns throug hout the pancre as, likely sequel ae of chroni c pancre atitis . Pancre atic duct is promin ent, measur ing up to 8 mm in diamet er. Adrena l glands : Unrema rkable . No mass. Kidney s: No hydron ephros is. Small right renal cyst. Aorta/ Vascul ar: Modera te athero sclero tic calcif icatio n. No abdomi nal aortic aneury sm. Retrop eriton eum: No mass or lympha denopa thy. Bowel/ mesent virgen: No small bowel obstru ction. No free air or free fluid. Append ix is unrema rkable . Scatte red coloni c divert icula withou t adjace nt inflam matory change s to sugges t acute divert iculit is. Pelvic organs : Mildly enlarg ed prosta te with mild impres elver on the bladde r base. Bladde r: Unrema rkable . No mass. Abdomi nal wall: No mass or hernia . Page 1 [facility] [address] [facility] [place] [address] Patien t Name: PAM ARRIAZA CK Access ion #: [id number] Sex: M : 1949 1 Dictat ed By: Toney angeles Attend ing Physic omid: RALPH MOODY Orderjack Physic omid: RALPH MOODY Exam Date: 2022 09:19 AM Exam Name: CT ABDOME N PELVIS W Admitt ing Diagno sis(es ): Bones: No fractu re or focal intrao sseous lesion . IMPRES ELVER: 1. Sequel ae of chroni c pancre atitis as descri bed above. Peripa ncreat ic inflam matory strand ing is seen to sugges t acute pancre atitis , howeve r correl ation with clinic al findin gs is recomm ended. 2. Hepati c steato sis. 3. Additi onal nonacu te findin gs as detail ed above Electr onical ly Signed by: Toney angeles at 2022 12:29: 16 PM Page [address] (Imaging) [address] [place], [address], 04/13/2023 17:34:20 04/13/20 23 04/13/2023 CT, abdom en + pelvi s, w/o contr ast No observ ation record ed. [email or web address] [address], [place], [address], 05/24/2023 10:02:08 Result Notes Documentation Provider Name and Address Organization Details Recorded Time Ct, Abdomen + Pelvis, W/ Contrast : [facility] [address] [place] [address] Patient Name: SETH ARRIAZA Sex: M : 1950 Dictated By: Gabriel Childs Attending Physician: TUNG LEON Ordering Physician: CAROLYN GRIFFITH Exam Date: 04/12/2023 09:19 AM Exam Name: CT ABDOMEN PELVIS W Admitting Diagnosis(es): CLINICAL INFORMATION: Lower abdominal pain and diarrhea. Weight loss. Loss of appetite. TECHNIQUE: Axial CT images of the abdomen and pelvis were obtained after the uneventful administration of 100 mL Isovue 300 IV contrast. The patient also ingested 900 mL barium oral contrast prior to the examination. Coronal and sagittal reformatted images were obtained, reviewed, and stored. One or more of the following dose reduction techniques were used: Automated exposure control. Adjustment of mA and/or kV according to patient size. CTDIvol = 15.09 mGy DLP = 868.9 mGy-cm COMPARISON: No prior CT. FINDINGS: Lung bases: Atelectasis in the lung bases. Liver: Hepatic steatosis. Biliary: No calcified gallstones or biliary ductal dilatation. Spleen: Multiple calcified granulomas in the spleen. Pancreas: Calcifications throughout the pancreas, likely sequelae of chronic pancreatitis. Pancreatic duct is prominent, measuring up to 8 mm in diameter. Adrenal glands: Unremarkable. No mass. Kidneys: No hydronephrosis. Small right renal cyst. Aorta/Vascular: Moderate atherosclerotic calcification. No abdominal aortic aneurysm. Retroperitoneum: No mass or lymphadenopathy. Bowel/mesentery: No small bowel obstruction. No free air or free fluid. Appendix is unremarkable. Scattered colonic diverticula without adjacent inflammatory changes to suggest acute diverticulitis. Pelvic organs: Mildly enlarged prostate with mild impression on the bladder base. Bladder: Unremarkable. No mass. Abdominal wall: No mass or hernia. Page 1 [facility] [address] [place] [address] Patient Name: SETH ARRIAZA Sex: M : 1950 Dictated By: Gabriel Childs Attending Physician: CAROLYN GRIFFITH Ordering Physician: CAROLYN GRIFFITH Exam Date: 04/12/2023 09:19 AM Exam Name: CT ABDOMEN PELVIS W Admitting Diagnosis(es): Bones: No fracture or focal intraosseous lesion. IMPRESSION: 1. Sequelae of chronic pancreatitis as described above. Peripancreatic inflammatory stranding is seen to suggest acute pancreatitis, however correlation with clinical findings is recommended. 2. Hepatic steatosis. 3. Additional nonacute findings as detailed above Page 2 Echo maloney [facility] [employer] [facility] 04/13/2023 17:34:20 Problems Name Problem SNOMED Code Status Onset Date Resolution Date Notes Provider Name and Address Organization Details Recorded Time Chronic back pain 810012508 Active 2016 Not Available [facility] 3 04:55:03 Nocturia 496244730 Active Not Available [facility] 3 04:55:03 Unsteady when walking 36736245 Active 2021 Not Available [facility] 3 04:55:03 Heart irregularl y irregular 545798619 Active Not Available [facility] 3 04:55:03 Chest pain 36286783 Active Not Available [facility] 3 04:55:03 Type 2 diabetes mellitus without complicati on 940684022 Active 2020 Not Available [facility] 3 04:55:03 Vitamin D deficiency 62373564 Active 2022 Not Available [facility] 3 04:55:03 Hypertensi ve disorder 31565367 Active Not Available [facility] 3 04:55:04 Hyperlipid emia 72340806 Active Not Available [facility] 3 04:55:04 Essential hypertensi on 03663241 Active Not Available [facility] 3 04:55:04 Polyp of colon 81370895 Active Not Available [facility] 3 04:55:04 Liver enzymes level above reference range 636981932 Active 2021 Not Available [facility] 3 04:55:04 Diabetes mellitus 44844569 Active Not Available [facility] 3 04:55:04 Hyperglyce laina 61745650 Active 2021 Not Available [facility] 3 04:55:04 Fatigue 90302157 Active Not Available [facility] 3 04:55:04 Dystrophia unguium 92327789 Active 2020 Not Available [facility] 3 04:55:04 Generalize d anxiety disorder 36443612 Active 2022 Tung barraza MD [address], [place], [address] , [employer] 3 12:26:28 Hyperprote inemia 27812240 Active 2022 Tung barraza MD [address], [place], [address] , [employer] 3 12:27:29 Primary erectile dysfunctio n 933361345 Active 2022 Tung barraza MD [address], [place], [address] , [employer] [facility] 3 12:27:40 Pain in right hand 7639179340419 09 Active 2022 Tung barraza MD [address], [place], [address] , [employer] [facility] 3 12:27:49 Anemia 247836914 Active 2022 Tung barraza MD [address], [place], [address] , [employer] [facility] 3 09:57:12 Restless legs 91245916 Active 2022 Tung barraza MD [address], [place], [address] , [employer] [place] [facility] 3 10:09:13 Onychomyco sis 161284985 Active 2022 Tung barraza MD [address], [place], [address] , [facility] [facility] 3 10:10:46 Pain of left hand 2657739109099 03 Active 2022 Tung barraza MD [address], [place], [address] , [facility] 3 10:11:17 Acute otitis media 9261911 Active 2022 Tung barraza MD [address], [place], [address] , [facility] [facility] 3 15:44:46 Arthritis of first carpometac arpal joint of left hand 5592337768655 103 Active 2022 Rell Cherry MD [address] [address], [place], [address] , [facility] 3 10:05:44 Abdominal pain 85484158 Active 2022 Echo maloney, [place] [facility] [facility] 3 13:48:49 Abnormal weight 63817983 Active 2022 LEA Stephens, [place] [facility] 3 11:23:08 Bunion 627520797 Active 2022 Yossi Robin DPM [address], [address], [place], [address] , [facility] 3 10:25:11 Hammer toe 223940597 Active 2022 Yossi Robin DPM [address], [place], [address] , [facility] 3 10:25:44 COVID-19 969825660 Active 2022 Echo maloney, [facility] 17:01:34 Problem Notes None recorded. Procedures Surgical History Date Name Laterality Status Provider Name and Address Organization Details Recorded Time 05/24/20 Medicare Wellness CPT Code, subsequent completed Angela Roque RN [facility] 05/24/2023 10:11:55 05/16/20 Nail Debridement completed Yossi Robin DPM [address] [facility], [place], [address], [facility] [employer] [facility] 05/16/2023 10:24:51 04/30/20 Colonoscopy completed Not Available [facility] 12/08/19 04:44:13 10/31/19 19 incision of tendon sheath completed Not Available [facility] 12/07/2022 04:44:13 01/19/20 18 Carpal tunnel surgery completed Not Available [facility] 12/07/2022 04:44:13 12/22/19 18 Carpal tunnel surgery completed Not Available [facility] 12/07/2022 04:44:13 ENT Surgery completed Not Available [facility] 12/07/2022 04:44:13 Orthopedic Surgery completed Not Available [facility] 12/07/2022 04:44:13 Back Surgery completed Not Available [facility] 12/07/2022 04:44:13 other completed Not Available [facility] 10/2022 04:44:13 Knee Surgery completed Not Available [facility] 12/07/2022 04:44:13 Imaging Results None recorded. Procedure Notes None recorded. Medical Equipment None Reported. Allergies Allergen ID Allergen Name Allergen Category Reaction Reaction Severity Criticality Documentation Date Start Date Code Code System Note Provider Name and Address Organization Details Recorded Time 55788 metformin medicatio n diarrhea muscle cramps Not available Not available Not available 04/19/2023 6809 RxNorm ELA Stephens [facility] 11:24:59 Medications Name Sig Start Date Stop Date Status Note LastModified by Organization Details LastModified Time metformin 500 mg tablet TAKE 1 TABLET BY MOUTH TWICE DAILY 04/19 completed Not Available Not Available Not Available venlafaxi ne ER 75 mg capsule,e xtended release 24 hr TAKE ONE TABLET BY MOUTH DAILY. NO DRIVING, NO ALCOHOL, AND NO OTHER SEDATING MEDICATI ONS. NOTIFY DOCTOR IF CHANGES IN MOOD OR BEHAVIOR . active DECREASE DULOXETI NE FROM 60MG TO 30MG DAILY. TAKE WITH VENLAFAX INE FOR 2 WEEKS THEN STOP TAKING DULOXETI NE COMPLETL Y. Not Available Not Available Not Available atorvasta tin 20 mg tablet Take 1 tablet by mouth once daily active Not Available Not Available No t Available labetalol 200 mg tablet TAKE 1 TABLET BY MOUTH TWICE DAILY active Not Available Not Available No t Available atorvasta tin 10 mg tablet TAKE 1 TABLET BY MOUTH ONCE DAILY active Not Available Not Available No t Available azithromy devyn 250 mg tablet Take by oral route.2t abs first day then 1 daily active Not Available Not Available No t Available hydrocodo ne 5 mg-acetam inophen 325 mg tablet 05/16 completed Not Available Not Available Not Available lisinopri l 20 mg tablet TAKE 1 TABLET BY MOUTH ONCE DAILY active Not Available Not Available No t Available clonazepa m 1 mg tablet TAKTE 1 TABLET BY MOUTH ONCE DAILY 30 MINUTES BEFORE BEDTIME. active Not Available Not Available No t Available Accu-Chek Softclix Lancets USE TO CHECK GLUCOSE ONCE DAILY 01/24 completed Not Available Not Available Not Available tramadol 50 mg tablet Take 1 tablet twice a day by oral route for 30 days. 12/13 completed Not Available Not Available Not Available sildenafi l 100 mg tablet TAKE 1 TABLET BY MOUTH TWICE A WEEK NEEDED (TAKE HALF HOUR PRIOR TO SEX) IF ERECTION LASTS MORE THAN 2 4 HOURS GO TO ER. 11/01 completed pt states not taking Not Available Not Available Not Available Niaspan 1,000 mg tablet,ex tended release 06/18 completed Not Available Not Available Not Available meloxicam 7.5 mg tablet 1 Tablet Daily 10/15 completed Not Available Not Available Not Available oxycodone -acetamin ophen 5 mg-325 mg tablet 11/01 completed Not Available Not Available Not Available Tessalon Perles 100 mg capsule Take 1 capsule 3 times a day by oral route for 5 days. 07/14 completed Not Available Not Available Not Available tamsulosi n 0.4 mg capsule TAKE 1 CAPSULE BY MOUTH EVERY DAY AT BEDTIME active Not Available Not Available No t Available Kenalog 10 mg/mL suspensio n for injection IN OFFICE 04/19 completed [facility]: [phone] 4-20 Not Available Not Available Not Available cephalexi n 500 mg capsule 06/14 completed Not Available Not Available Not Available erythromy devyn 5 mg/gram (0.5 %) eye ointment active Not Available Not Available Not Available ropinirol e 0.5 mg tablet TAKE 1 TABLET BY MOUTH ONCE DAILY AT BEDTIME FOR 90 DAYS 05/16 completed Not Available Not Available Not Available diclofena c potassium 50 mg tablet 06/14 completed Not Available Not Available Not Available mupirocin 2 % topical ointment 09/21 completed Not Available Not Available Not Available ergocalci ferol (vitamin D2) 1,250 mcg (50,000 unit) capsule Take 1 capsule every week by oral route. 05/16 completed Not Available Not Available Not Available methylpre dnisolone 4 mg tablets in a dose pack 05/16 completed Not Available Not Available Not Available amoxicill in 875 mg-potass ium clavulana te 125 mg tablet TAKE 1 TABLET BY MOUTH EVERY 12 HOURS FOR 7 DAYS 02/07 completed Not Available Not Available Not Available ezetimibe 10 mg tablet TAKE 1 TABLET BY MOUTH EVERY DAY active Not Available Not Available No t Available aripipraz ole 5 mg tablet TK 1 T PO QD 10/15 completed Not Available Not Available Not Available bupropion HCl XL 150 mg 24 hr tablet, extended release TAKE 1 TABLET BY MOUTH ONCE DAILY FOR 30 DAYS 07/27 completed Not Available Not Available Not Available Alcohol Prep Pads USE TO CHECK BLOOD SUGAR DAILY 01/24 completed Not Available Not Available Not Available escitalop jovana 5 mg tablet 10/15 completed Not Available Not Available Not Available duloxetin e 60 mg capsule,d elayed release TAKE 1 CAPSULE BY MOUTH ONCE DAILY active Not Available Not Available No t Available Fish Oil 02/07 completed Not Available Not Available Not Available Mobic 04/[address] [facility] Not Available Not Available Not Available aripipraz ole 2 mg tablet 04/16 completed Not Available Not Available Not Available fenofibra te nanocryst allized 145 mg tablet TAKE 1 TABLET BY MOUTH ONCE DAILY 06/24 completed Not Available Not Available Not Available hydrochlo rothiazid e 12.5 mg tablet Take 1 tablet by mouth once daily 05/19 completed Not Available Not Available Not Available Fish Oil 1,000 mg capsule 1 cap twice a day 06/24 completed Not Available Not Available Not Available GaviLyte- N 420 gram oral solution 07/28 completed Not Available Not Available Not Available GaviLyte- G 236 gram-22.7 4 gram-6.74 gram-5.86 gram oral solution TAKE DIRECTED active Not Available Not Available No t Available Suprep Bowel Prep Kit 17.5 gram-3.13 gram-1.6 gram oral solution 06/18 completed Not Available Not Available Not Available ropivacai ne (PF) 5 mg/mL (0.5 %) injection solution IN OFFICE 04/19 completed [facility] [id number] - Not Available Not Available Not Available Vascepa 1 gram capsule Take 2 capsules twice a day by oral route for 90 days. 2022 active Not Available Not Available Not Avai lable Creon 36,000 unit-114, 000 unit-180, 000 unit capsule,d elayed release TAKE 1 CAPSULE BY MOUTH THREE TIMES DAILY WITH MEALS OR SNACKS active Not Available Not Available No t Available Farxiga 10 mg tablet TAKE 1 TABLET BY MOUTH ONCE DAILY active Not Available Not Available No t Available Jardiance 10 mg tablet TAKE 1 TABLET BY MOUTH ONCE DAILY active Not Available Not Available No t Available Accu-Chek Guide test strips USE STRIP ONCE DAILY 01/24 completed Not Available Not Available Not Available Adult Aspirin Regimen 81 mg tablet,de layed release Take 1 tablet every day by oral route. 2021 active Not Available Not Available Not Avai lable Accu-Chek Guide Me Glucose Meter USE TO CHECK BLOOD SUGAR DAILY 01/24 completed Not Available Not Available Not Available Fluzone High-Dose 2018- (PF) 180 mcg/0.5 mL intramusc ular syringe TO BE ADMINIST ERED BY PHARMACI ST FOR IMMUNIZA TION 10/15 completed Not Available Not Available Not Available Fluad Quad 3125-5856 (65yr up)(PF) 60 mcg (15 mcg x 4)/0.5mL IM syringe PHARMACY ADMINIST ERERicardo 09/22 completed Not Available Not Available Not Available BinaxNOW COVID-19 Ag Self Test kit Use as Directed on the Package 12/27 completed Not Available Not Available Not Available Paxlovid 300 mg (150 mg x 2)-100 mg tablets in a dose pack USE DIRECTED PER PACKAGE active Not Available Not Available No t Available Vitals Date Recorded Body height Body mass index (BMI) Body weight Body temperature Heart rate Oxygen saturation Oxygen saturation in Arterial blood by Pulse oximetry Systolic blood pressure Diastolic blood pressure Provider Name and Address Organization Details Last Updated DateTime 3 187.96 cm 24.8 kg/m2 10861.3 3 g 98.5 [degF] 68 /min 96 % 96 % 116 mm[Hg] 68 mm[Hg] Eli Sotomayor RN [facility] [employer] [facility] 3 15:18:16 Date Recorded Body height Body mass index (BMI) Body weight Provider Name and Address Organization Details Last Updated DateTime 02/07/2023 187.96 cm 24.7 kg/m2 29219.74 g Casey Sherwood [facility] [employer] [facility] 02/07/2023 09:37:11 Date Recorded Body height Body mass index (BMI) Body weight Body temperature Heart rate Systolic blood pressure Diastolic blood pressure Provider Name and Address Organization Details Last Updated DateTime 3 187.96 cm 24.1 kg/m2 47660.3 7 g 97.5 [degF] 72 /min 120 mm[Hg] 64 mm[Hg] Elvia Finn [facility] [employer] [facility] 3 11:29:06 Date Recorded Body height Body mass index (BMI) Body weight Provider Name and Address Organization Details Last Updated DateTime 05/16/2023 186.69 cm 24.1 kg/m2 17639.59 g Leyla Batista [facility] [employer] [facility] 05/16/2023 09:37:37 Date Recorded Heart rate Respiratory rate Oxygen saturation Oxygen saturation in Arterial blood by Pulse oximetry Systolic blood pressure Diastolic blood pressure Provider Name and Address Organization Details Last Updated DateTime 3 58 /min 14 /min 98 % 98 % 139 mm[Hg] 85 mm[Hg] Maida Coon [place] [facility] [employer] [facility] 3 09:40:00 Date Recorded Body height Body mass index (BMI) Body weight Body temperature Heart rate Oxygen saturation Oxygen saturation in Arterial blood by Pulse oximetry Systolic blood pressure Diastolic blood pressure Provider Name and Address Organization Details Last Updated DateTime 3 186.69 cm 23.8 kg/m2 80139.4 g 97.8 [degF] 58 /min 97 % 97 % 122 mm[Hg] 76 mm[Hg] Daisy Christensen [place] [facility] [employer] [facility] 3 10:02:14 Social History Question Answer Notes LastModified by Organizat ion Details LastModified Time Tobacco Smoking Status Former Smoker Not Available [facility] 12/07/2022 04:39:40 Do You Have An Advance Directive? Yes Is POA [id number] Information not available 12/07/2022 Are You Blind Or Do You Have Difficulty Seeing? No MIGRATION.75042 52529 Information not available 12/07/2022 What Is Your Level Of Caffeine Consumption? Occasional MIGRATION.36680 [id number] Information not available 12/07/2022 How Much Tobacco Do You Chew? None MIGRATION.74785 [id number] Information not available 12/07/2022 In The 14 Days Before Symptom Onset, Have You Had Close Contact With A Laboratory-confi rmed COVID-19 While That Case Was Ill? No MIGRATION.80907 43875 Information not available 12/07/2022 In The 14 Days Before Symptom Onset, Have You Had Close Contact With A Person Who Is Under Investigation For COVID-19 While That Person Was Ill? No MIGRATION.95456 03791 Information not available 12/07/2022 Are You Deaf Or Do You Have Serious Difficulty Hearing? No MIGRATION.65264 95067 Information not available 12/07/2022 What Type Of Diet Are You Following? REGULAR MIGRATION.36175 44211 Information not available 12/07/2022 Which Illicit Or Recreational Drugs Have You Used? Marijuana MIGRATION.11339 22591 Information not available 12/07/2022 What Is The Fluoride Status Of Your Home? Fluoridated MIGRATION.59574 76690 Information not available 12/07/2022 When Did You Quit Smoking? 16+yearssincelastc igarette [email or web address] Information not available 05/16/2023 Are There Any Guns Present In Your Home? Yes MIGRATION.95257 01569 Information not available 12/07/2022 Where Do You Live? [facility] MIGRATION.06570 29579 Information not available 12/07/2022 Presence Of Domestic Violence No [email or web address] Information not available 05/24/2023 Are You Able To Care For Yourself? Yes Information not available 05/24/2023 Are You Blind Or Do Yo Have Difficulty Seeing? No Information not available 05/24/2023 Are You Deaf Or Do You Have Serious Difficulty Hearing? No Information not available 05/24/2023 General Stress Level? Low [email or web address] Information not available 05/24/2023 Live Alone Of With Others? With Others [email or web address] Information not available 05/24/2023 Do You Have A Medical Power Of Extracorporeal Circulation Specialist? Yes MIGRATION.36114 56325 Information not available 12/07/2022 What Was The Date Of Your Most Recent Tobacco Screening? 05/24/2023 [email or web address] Information not available 05/24/2023 Do You Have Smoke And Carbon Monoxide Detectors In Your Home? Yes MIGRATION.06942 99300 Information not available 12/07/2022 Are You Passively Exposed To Smoke? No Information not available 12/27/2022 Are There Any Smokers In Your House? No Information not available 12/27/2022 Do You Use Sunscreen Routinely? Yes MIGRATION.56790 72406 Information not available 12/07/2022 Have You Recently Traveled Abroad? No MIGRATION.38592 06958 Information not available 12/07/2022 Do You Have Difficulty Walking Or Climbing Stairs? No MIGRATION.41796 45122 Information not available 12/07/2022 Sex: Unknown Functional Status Question Answer Note LastModified by Organizat ion Details LastModified Time Do you use any illicit or recreational drugs? Yes Information not available 12/27/2022 Do you or have you ever used any other forms of tobacco or nicotine? No Information not available 12/27/2022 What is your level of alcohol consumption? None 5 years since last drink [email or web address] Information not available 05/24/2023 Are you currently employed? No Information not available 12/27/2022 Do you have transportation difficulties? No MIGRATION.007443 7566 Information not available 12/07/2022 Are you able to walk? YESWOREST MIGRATION.126523 8100 Information not available 12/07/2022 Do you have difficulty doing errands alone? No MIGRATION.364519 5814 Information not available 12/07/2022 Are you able to care for yourself? Yes MIGRATION.102967 0760 Information not available 12/07/2022 What is your occupation? retired MIGRATION.802743 5117 Information not available 12/07/2022 Do you have difficulty dressing or bathing? No MIGRATION.160979 9162 Information not available 12/07/2022 What is your exercise level? Occasional daily walks MIGRATION.098669 7283 Information not available 12/07/2022 Mental Status Question Answer Note LastModified by Organizat ion Details LastModified Time Do you have difficulty concentrating, remembering or making decisions? Yes MIGRATION.[id number] 6 Information not available 12/07/2022 Family History Relationship Description Onset Age of this Age Resolved Age Notes LastModified by Organization Details LastModified Time Sister Malignant tumor of breast [id number] Not available 12/07/2022 04:44:18 Sister Malignant neoplastic disease MIGRATION.240 [id number] Not available 12/07/2022 04:44:19 Brother Malignant neoplasm of prostate MIGRATION.979 [id number] Not available 12/07/2022 04:44:19 Father Hypertensive disorder [email or web address] Not available 2022 09:39:03 Father Heart disease [email or web address] Not available 2022 09:39:22 Mother Hypertensive disorder [email or web address] Not available 2022 09:39:03 Medical History Condition Response NERVE DISEASE N BLINDNESS N RHEUMATIC FEVER N KIDNEY STONES N BLADDER PROBLEMS N MRSA N OTHER # 1 N POLIO N LUNG DISEASE/DISORDER N COPD N RADIATION / CHEMOTHERAPY N Other # 2 N BLOOD DISEASES N SURGERY N EAR OR HEARING PROBLEMS N MUMPS N DEPRESSION (INCLUDING POST ) Y BOWEL PROBLEMS Y STROKE/TIA N ULCERS N BENIGN PROSTATIC HYPERPLASIA N MEASLES N MYOCARDIAL INFARCTION N OBESITY N GERD/NAUSEA N ANEURYSM N URINARY/BLADDER/KIDNEY PROBLEMS Y CORONARY ARTERY DISEASE (CAD) N ADDICTION CONCERNS N Impotence N ENDOMETRIOSIS N USE OF BLOOD THINNERS N SKIN PROBLEMS N GASTROINTESTINAL DISORDER N PERIPHERAL VASCULAR DISEASE N MUSCLE,JOINT OR BONE PROBLEMS N GASTROINTESTINAL BLEEDING N BLOOD CLOTS N ASTHMA N CATARACTS N ERECTILE DYSFUNCTION Y VARICOSITIES N GI PROBLEMS N Low Testosterone N INFERTILITY N AIDS/HIV N CHEMOTHERAPY / RADIATION N LIVER DISEASE N MALE HYPOGONADISM N HYPERTENSION Y Deficiency N ANXIETY DISORDER Y BLOOD TRANSFUSION N ANEMIA/BLOOD DISORDER Y CHRONIC EAR INFECTIONS N BRONCHITIS N TUBERCULOSIS N GLAUCOMA N FOOT PROBLEM N DIVERTICULITIS N SLEEP APNEA N CHICKENPOX N INFECTIOUS DISEASE N PROSTATE N HEART ARRHYTHMIA N INSOMNIA N HIGH CHOLESTEROL / HYPERLIPIDEMIA Y HYPERTHYROIDISM N EYE PROBLEMS N NEUROLOGICAL PROBLEMS N EDEMA N CHRONIC PAIN SYNDROME N HYPOTHYROIDISM N CONSTIPATION N CAROTID BLOCKAGE N BACK / NECK PROBLEMS N ATHEROSCLEROSIS N BREAST PROBLEMS N DIALYSIS N ECZEMA N OSTEOPOROSIS N ARTHRITIS Y APPENDICITIS N DIABETES, TYPE Y BAD TEETH N ENT N HEARTBURN / REFLUX N AUTISM SPECTRUM DISORDER (ASD) N HEPATITIS / LIVER DISEASE N GOUT N SLEEP DISORDER N ALZHEIMER'S DISEASE N Brain Problems N HERPES N DEMENTIA N SEIZURES/EPILEPSY N HEADACHES/MIGRAINES N VASCULAR DISEASE N PACEMAKER N Blood Disorder N DIZZINESS N KIDNEY DISEASE Y HEART DISEASE/HEART PROBLEMS N MULTIPLE SCLEROSIS N CARDIAC ARRHYTHMIA N CANCER: SPECIFY Y Gall Stones N ATRIAL FIBRILLATION N PULMONARY EMBOLISM N AUTOIMMUNE DISEASE N Immunizations Vaccine Type Date Status Note Provider Nam e and Address Organization Details Recorded Time COVID-19, mRNA, LNP-S, PF, 30 mcg/0.3 mL dose 1 completed Not Available [facility] 12/07/2022 05:07:18 SARS-COV-2 (COVID-19) vaccine, UNSPECIFIED 1 completed Not Available [facility] 12/07/2022 05:07:18 SARS-COV-2 (COVID-19) vaccine, UNSPECIFIED 1 completed Not Available [facility] 12/07/2022 05:07:18 Influenza, high-dose, quadrivalent, PF 9 completed Not Available [facility] 12/07/2022 05:07:18 Influenza, high-dose, trivalent, PF 0 completed Not Available [facility] 12/07/2022 05:07:18 Tdap 7 completed Not Available [facility] 12/07/2022 05:07:18 Influenza, high-dose, quadrivalent, PF 1 completed Not Available [facility] 12/07/2022 05:07:18 pneumococcal polysaccharide PPV23 8 completed Not Available [facility] 12/07/2022 05:07:19 Influenza, high-dose, trivalent, PF 8 completed Not Available [facility] 12/07/2022 05:07:19 Td (adult), 2 Lf tetanus toxoid, preservative free, adsorbed 7 completed Not Available [facility] 12/07/2022 05:07:19 Pneumococcal conjugate PCV 13 7 completed Not Available [facility] 12/07/2022 05:07:19 Influenza, high-dose, trivalent, PF 7 completed Not Available [facility] 12/07/2022 05:07:19 Influenza, high-dose, trivalent, PF 5 completed Not Available [facility] 12/07/2022 05:07:19 Influenza, split virus, trivalent, preservative 4 completed Not Available [facility] 12/07/2022 05:07:19 Influenza, split virus, quadrivalent, preservative 7 completed Not Available [facility] 12/07/2022 05:07:19 zoster live 3 completed Not Available [facility] 12/07/2022 05:07:20 Past Encounters Encounter ID Performer Location Encounter Start Date Encounter Closed Date Diagnosis/Indication Diagnosis SNOMED-CT Code Diagnosis ICD10 Code Diagnosis Note [id number] Tung barraza MD [facility] [address] [facility], [facility] [address] [place] [address] 01/19/2021 00:00:00 01/27/2021 14:11:47 [id number] [facility] [place] [address] [place] [address] 03/29/2021 00:00:00 03/29/2021 13:36:36 [id number] [facility] [place] [address] [place] [address] 04/26/2021 00:00:00 04/26/2021 10:15:38 [id number] [facility] [place] [address] [place] [address] 05/17/2021 00:00:00 05/17/2021 09:39:31 [id number] Tung barraza MD [facility] [address] [address] 06/24/2021 00:00:00 07/23/2021 08:46:30 [id number] Tung barraza MD [facility] [address] [place], [place] [address]Debra, [place] [address] 11/01/2021 00:00:00 11/01/2021 15:47:28 [id number] Tung barraza MD [facility] [address] [address] 01/13/2022 00:00:00 01/13/2022 11:04:21 [id number] Tung barraza MD [facility] [address] [address] 05/19/2022 00:00:00 05/23/2022 10:46:12 [id number] Tung barraza MD [facility] [address] [address] 12/27/2022 09:33:00 12/27/2022 10:14:02 Screening - NAD [id number] Z13.9 C-scope: Dr Paige tovar 12/07/16, another in 5 years05/07: C-scope: Dr Paige tovar, tubular adenoma On ASA daily UTD on flu shotUTD on Zoster 07/11/13UT D on td 09/21/17UT D on pneumovax #13 09/21/17, #23 18UT D on COVID 19 vaccine done Addendum: 07/23/2021 :Form filled for his pre op for eye lid surgery, he is cleared for this procedure RTC in 6 monthwith labsER if worsehe did verbalize their understand ing of the above Generalize d anxiety disorder 01890151 F41.[address] Singleton in the past, declines On duloxetine 60mg dailyNot suicidal or homicidalD eclines any psychiatry apts Hyperlipidemia 35230690 E78.5 On atorvastat in 20mg dailyNot on fenofibrat e Start on vascepa but he is not taking thisGet labs Does well Essential hypertension 56772382 I10 On ASA Not on HCTZ On labetololD oes wellGet labs Hyperproteinemia 6425109 [address] Sandoval 12/20/2022 Primary er ectile dysfunction 103247832 N52.9 On viagra 100mg daily He knows how to take this as he has done this in the past Type 2 iliana betes mellitus without complication 083991454 E11.9 On metformin Get labs and needs to see eye MD and podiatry Dr Alva last OV 05/17/[address] Robin Liver enzy mes level above reference range 174191436 R74.01 Dr Cummings 09/22/2022 , f/u in 6 months Anemia 887038275 D64.[address] Sandoval Restless legs 50455891 G 25.81 States that he has very restless legs, states that it disturbs his in her sleep, wants a pill, will start on requip, all side effects explained to him Pain of left hand 615273 4263 25338 M79.642 He is R HD and states that the pain is intermitte nt, located in the R thumb area [id number] Rell Cherry MD [facility] [place] [address] [place] [address] 02/07/2023 09:25:07 02/07/2023 10:01:19 Pain of left hand [id number] 12159 M79.642 Arthritis of first carpometacarpal joint of left hand [id number] 655143 M13.842 we discussed the treatment options. Provided him with a brace which helps with the pain. We injected the joint with 1 cc xylocaine 1 cc Kenalog sterile technique standard protocol. See him back if worsening of symptoms can either reinject or discuss a ligament reconstruc tion tendon interposit ion procedure which his has had done in the past and was beneficial for her [id number] Tung barraza MD [facility] Internal [facility] [address] [facility] [place] [address] 01/30/2023 15:12:59 01/30/2023 15:44:42 Acute otitis media 1333773 H66.92 Mild wax noted, easily flushed, TM is red, tender at the EAC, no obvious perf noted, start on augmentin, ER if worse, he is agreeable to this plan of care [id number] Tung barraza MD [facility] [address] [facility] [place] [address] 04/19/2023 11:11:56 04/19/2023 11:58:22 Screening - NAD 369241905 Z13.9 C-scope: Dr Paige tovar 12/07/16, another in 5 years05/07: C-scope: Dr Paige tovar, tubular adenoma On ASA daily UTD on flu shotUTD on Zoster 07/11/13UT D on td 09/21/17UT D on pneumovax #13 09/21/17, #23 //18UT D on COVID 19 vaccine done Addendum: 07/23/2021 :Form filled for his pre op for eye lid surgery, he is cleared for this procedure RTC in 1 monthwith labsER if worseHe and his did verbalize their understand ing of the above Generalize d anxiety disorder [id number] F41.[address] Singleton in the past, declines On duloxetine 60mg dailyNot suicidal or homicidalD eclines any psychiatry apts Hyperlipidemia 91765044 E78.5 On atorvastat in 20mg dailyNot on fenofibrat e Start on vascepa but he is not taking thisGet labs Does well Essential hypertension 97699037 I10 On ASA Not on HCTZ On labetololD oes wellGet labs Hyperproteinemia 0120351 [address] Sandoval 12/20/2022 Primary er ectile dysfunction 804320861 N52.9 On viagra 100mg daily He knows how to take this as he has done this in the past Type 2 iliana betes mellitus without complication 051966139 E11.9 On metformin, but stopped this d/t diarrhea 04/19/2023 Get labs and needs to see eye MD and podiatry Dr Alva last OV 05/17/[address] Robin Liver enzy mes level above reference range 393526527 R74.01 Dr Cummings 09/22/2022 , f/u in 6 months Anemia 202834471 D64.[address] Sandoval Restless legs 33878821 G 25.81 States that he has very restless legs, states that it disturbs his in her sleep, wants a pill, will start on requip, all side effects explained to him Pain of left hand 538171 3902 30065 M79.642 He is R HD and states that the pain is intermitte nt, located in the R thumb area Dr Cherry 02/07/2023 Abdominal pain 32954023 R10.9 S/p ER 04/13/2023 : AndersonDi agnosed with chronic pancreatit is, does well now, some diarrhea, no abd pain, appetite is returnedNe eds to see GI [id number] Yossi Robin DPM [facility] [place] [address] [facility] [address] [place] [address] 05/16/2023 09:33:04 05/16/2023 10:36:55 Diabetes mellitus 39629173 E11.40 Patient educated on neuropathy , diabetes, diabetic diet, and daily foot exams. Patient is to check feet daily for new wounds, blisters, redness to prevent infection and ulceration s to the feet. Patient will return to clinic in 3 months for diabetic foot workup. Dystrophia unguium 00946 009 L60.3 M79.674 nails debrided without incident Bunion 414212932 M21.61 9 right 1sttreatme nt options reviewed in detailPati ent elects to continue with conservati ve therapyCon tinue with supportive shoe gearFollow -up as needed Hammer toe 975149421 M20 .41 M20.42 bilateral 2nd toesAs above [id number] Tung barraza MD [facility] [place] [address] [facility] [address] 05/24/2023 09:52:42 05/24/2023 10:43:27 Screening - NAD 235416041 Z13.9 C-scope: Dr Paige tovar 12/07/16, another in 5 years05/07: C-scope: Dr Paige tovar, tubular adenoma On ASA daily UTD on flu shotUTD on Zoster 07/11/13UT D on td 09/21/17UT D on pneumovax #13 09/21/17, #23 09/21/18UT D on COVID 19 vaccine done Addendum: 07/23/2021 :Form filled for his pre op for eye lid surgery, he is cleared for this procedure RTC in 1 monthwith labsER if worseHe and his did verbalize their understand ing of the above Generalize d anxiety disorder 58331910 F41.[address] Singleton in the past, declines On duloxetine 60mg dailyNot suicidal or homicidalD eclines any psychiatry apts Hyperlipidemia 80386590 E78.5 On atorvastat in 20mg dailyNot on fenofibrat e On vascepa but he is not taking thisGet labs Does well Essential hypertension 01961715 I10 On ASA Not on HCTZ On labetololD oes wellGet labs Hyperproteinemia 8089209 [address] Sandoval 12/20/2022 Primary er ectile dysfunction 103040448 N52.9 On viagra 100mg daily He knows how to take this as he has done this in the past Type 2 iliana betes mellitus without complication 969312037 E11.9 On metformin, but stopped this d/t diarrhea 04/19/2023 Get on Farxiga 10mg daily Get labs and needs to see eye MD and podiatry Dr Alva last OV 05/17/[address] Robin Liver enzy mes level above reference range 101615672 R74.01 Dr Cummings 09/22/2022 , f/u in 6 months Anemia 349583254 D64.[address] Sandoval Restless legs 24671372 G 25.81 States that he has very restless legs, states that it disturbs his in her sleep, wants a pill, will start on requip, all side effects explained to him Pain of left hand 202646 5082 71028 M79.642 He is R HD and states that the pain is intermitte nt, located in the R thumb area Dr Cherry 02/07/2023 Abdominal pain 69229192 R10.9 S/p ER 04/13/2023 : AndersonCT A/P 04/13/2023 : Chronic pancreatit isDiagnose d with chronic pancreatit is, does well now, some diarrhea, no abd pain, appetite is returnedNe eds to see GI Adult heal th examination 052883029 Z00.00 Screening for disorder 589456580 Z13.9 Health Concerns Section Related Observation LastModified by Organization Detai ls LastModified Time None Recorded Concern Status LastModified by Organization Details LastModified Time None Recorded Advance Directives Directive Y: is POA Payers Insurance Date Sequence Insurance Name Policy Number Policy Rodriguez Covered Member ID Rodriguez Member ID Guarantor Name 08/09/2023 1 [place] Seth Dominguez Sofiya [id number] Seth Dominguez Sofiya 09/11/2023 2 [employer] (MEDICARE SUPPLEMENT) Seth Dominguez Sofiya [id number] Seth Dominguez Sofiya 01/02/2024 [employer] ASSIGNED (MEDICARE DME REGION B) Seth Angelica Sofiya [id number] Seth M Sofiya 01/02/2024 [employer] ASSIGNED (MEDICARE DME REGION B) Seth Angelica Sofiya [id number] Seth Angelica Sofiya Notes Date Note Type Note Provider Name and Address Organization Details Recorded Time 01/30/2023 text/html Here to mehdi Fuentes Hx:AnxietyHLDHTNSkin cancerReviewed social family and surgical historyHere to discuss all of the above and get labsHe feels that he is doing well he is on the duloxitine and feels that he is doing well, not suicidal or homicidalHe also has some N/T in the hands, feli handsHe has this in the night and he has to shake his hands, RHD normal gripNo atrophy of the handsSymptoms since 6 monthsHe has also seen a NS and has declined back surgery, he feels that his back is doing well at this time, no pain no N/T in the legs or weakness or loss of B/BOV: 10/19/17:Here for his one month apt, he states that he is doing wellHe is here with his wifeHe did do the labs OV 01/17/18:Here for his routine aptHe did do the lab on 12/25/17He is also to get CTS done tomorrow OV 05/16/18:Here for his routine aptHe states that he is doing well at this timeHe did do the labs on 05/08/18OV 09/13/18:Here for his routine aptHe states that he is doing wellHe did do the labsHe has also seen Dr Aggarwal for denemtia and did a MRI brain OV 12/13/18:Here for his routine aptIs to get a MWVHe did do the labsHe would like to get an apt with psychiatry as he feels that the cymbalta is not working, not suicidal or homicidal OV 04/16/19:Here for his routine aptHe states that he is doing well, no recent labs, he also states that he did see Dr Singleton and is now on a new medicationOV 10/15/2019:Here for his routine aptHe states that he is doing wellNo new labs are doneHe does want a referral to GI for hemorrhoids feels that he does have some bleedingOV 04/14/2020:here for his routine apthe did do the labs, and feels 'great'He is here for his MWV alsoOV 09/22/2020:Here for his routine aptHe is doing very wellHe has not yet done the labs but is going to do them today OV 01/19/2021:Here for his routine aptHere with his wifeHe did do the labsHe feels well todayOV 06/24/2021:Here for his routine aptHe feels wellHe states that his depression pill is not working and he feels lack of motivation to any thing, not suicidal or homicidal, states that he did see Dr Singleton in the past but prefers not to see him anymore at this time, he would like to get on another medicationHe has no new labsHere for his MWV alsoOV 11/01/2021:Here for his routine aptHe is doing wellHe is here with his wifeNo recent labs notedOV 01/13/2022:Here for his routine apt with his wifeHe is doing wellHe did the labs on 2OV 05/19/2022:Here for his routine apt, he feels well, he is here with his wifeHe did do the labs on 05/11/2022 OV 12/27/2022:Here for his f/u apt, he is doing very well, he did dot the labs OV 01/30/2023:Here for his ACV, c/o L ear ache, no fevers or chills, no dizziness, no d/c, no other URI symptoms Tung Leon MD [address], [place], [address], [facility] 01/30/2023 15:47:17 02/07/2023 text/html patient comes in today for evaluation of pain and burning difficulty gripping localized around the left basilar thumb joint. Patient had a previous release for 1st extensor compartment tenosynovitis that helped his wrist pain he also had previous carpal tunnel release which helped the numbing and tingling he has had the left and the right hand done once each no nocturnal paresthesias no burning or tingling in the fingers just pain with gripping activities Rell Cherry MD [address], [place], [address], [facility] 02/07/2023 10:06:27 04/19/2023 text/html Here to mehdi Fuentes Hx:AnxietyHLDHTNSkin cancerReviewed social family and surgical historyHere to discuss all of the above and get labsHe feels that he is doing well he is on the duloxitine and feels that he is doing well, not suicidal or homicidalHe also has some N/T in the hands, feli handsHe has this in the night and he has to shake his hands, RHD normal gripNo atrophy of the handsSymptoms since 6 monthsHe has also seen a NS and has declined back surgery, he feels that his back is doing well at this time, no pain no N/T in the legs or weakness or loss of B/BOV: 10/19/17:Here for his one month apt, he states that he is doing wellHe is here with his wifeHe did do the labs OV 01/17/18:Here for his routine aptHe did do the lab on 12/25/17He is also to get CTS done tomorrow OV 05/16/18:Here for his routine aptHe states that he is doing well at this timeHe did do the labs on 05/08/18OV 09/13/18:Here for his routine aptHe states that he is doing wellHe did do the labsHe has also seen Dr Aggarwal for denemtia and did a MRI brain OV 12/13/18:Here for his routine aptIs to get a MWVHe did do the labsHe would like to get an apt with psychiatry as he feels that the cymbalta is not working, not suicidal or homicidal OV 04/16/19:Here for his routine aptHe states that he is doing well, no recent labs, he also states that he did see Dr Singleton and is now on a new medicationOV 10/15/2019:Here for his routine aptHe states that he is doing wellNo new labs are doneHe does want a referral to GI for hemorrhoids feels that he does have some bleedingOV 04/14/2020:here for his routine apthe did do the labs, and feels 'great'He is here for his MWV alsoOV 09/22/2020:Here for his routine aptHe is doing very wellHe has not yet done the labs but is going to do them today OV 01/19/2021:Here for his routine aptHere with his wifeHe did do the labsHe feels well todayOV 06/24/2021:Here for his routine aptHe feels wellHe states that his depression pill is not working and he feels lack of motivation to any thing, not suicidal or homicidal, states that he did see Dr Singleton in the past but prefers not to see him anymore at this time, he would like to get on another medicationHe has no new labsHere for his MWV alsoOV 11/01/2021:Here for his routine aptHe is doing wellHe is here with his wifeNo recent labs notedOV 01/13/2022:Here for his routine apt with his wifeHe is doing wellHe did the labs on 2OV 05/19/2022:Here for his routine apt, he feels well, he is here with his wifeHe did do the labs on 05/11/2022 OV 12/27/2022:Here for his f/u apt, he is doing very well, he did dot the labs OV 01/30/2023:Here for his ACV, c/o L ear ache, no fevers or chills, no dizziness, no d/c, no other URI symptoms OV 04/19/2023: Here for his f/u apt, he is doing well today, he did do the labs 04/13/2023, s/p ER visit for pancreatitis on 04/13/2023 Tung Leon MD [address] [employer], [facility] [address], [place], [address], [facility] 05/02/2023 11:32:18 05/16/2023 text/html . Patient is 73-year-old male diabetic who presents the office with complaints of coldness to his feet. Patient denies any significant numbness, tingling or burning of the feet. Patient denies any injury to the foot. Patient denies any intermittent claudication walking or rest pain. Patient states he is an avid walker and does not have any pain with walking or cramping of the lower extremity. Patient states he does not have to stop and rest as he is walking. Yossi Robin DPM [address], [place], [address], [facility] 05/16/2023 10:28:28 05/24/2023 text/html Here to mehdi Fuentes Hx:AnxietyHLDHTNSkin cancerReviewed social family and surgical historyHere to discuss all of the above and get labsHe feels that he is doing well he is on the duloxitine and feels that he is doing well, not suicidal or homicidalHe also has some N/T in the hands, feli handsHe has this in the night and he has to shake his hands, RHD normal gripNo atrophy of the handsSymptoms since 6 monthsHe has also seen a NS and has declined back surgery, he feels that his back is doing well at this time, no pain no N/T in the legs or weakness or loss of B/BOV: 10/19/17:Here for his one month apt, he states that he is doing wellHe is here with his wifeHe did do the labs OV 01/17/18:Here for his routine aptHe did do the lab on 12/25/17He is also to get CTS done tomorrow OV 05/16/18:Here for his routine aptHe states that he is doing well at this timeHe did do the labs on 05/08/18OV 09/13/18:Here for his routine aptHe states that he is doing wellHe did do the labsHe has also seen Dr Aggarwal for denemtia and did a MRI brain OV 12/13/18:Here for his routine aptIs to get a MWVHe did do the labsHe would like to get an apt with psychiatry as he feels that the cymbalta is not working, not suicidal or homicidal OV 04/16/19:Here for his routine aptHe states that he is doing well, no recent labs, he also states that he did see Dr Singleton and is now on a new medicationOV 10/15/2019:Here for his routine aptHe states that he is doing wellNo new labs are doneHe does want a referral to GI for hemorrhoids feels that he does have some bleedingOV 04/14/2020:here for his routine apthe did do the labs, and feels 'great'He is here for his MWV alsoOV 09/22/2020:Here for his routine aptHe is doing very wellHe has not yet done the labs but is going to do them today OV 01/19/2021:Here for his routine aptHere with his wifeHe did do the labsHe feels well todayOV 06/24/2021:Here for his routine aptHe feels wellHe states that his depression pill is not working and he feels lack of motivation to any thing, not suicidal or homicidal, states that he did see Dr Singleton in the past but prefers not to see him anymore at this time, he would like to get on another medicationHe has no new labsHere for his MWV alsoOV 11/01/2021:Here for his routine aptHe is doing wellHe is here with his wifeNo recent labs notedOV 01/13/2022:Here for his routine apt with his wifeHe is doing wellHe did the labs on 2OV 05/19/2022:Here for his routine apt, he feels well, he is here with his wifeHe did do the labs on 05/11/2022 OV 12/27/2022:Here for his f/u apt, he is doing very well, he did dot the labs OV 01/30/2023:Here for his ACV, c/o L ear ache, no fevers or chills, no dizziness, no d/c, no other URI symptoms OV 04/19/2023: Here for his f/u apt, he is doing well today, he did do the labs 04/13/2023, s/p ER visit for pancreatitis on 04/13/2023 OV 05/24/2023: Here for his f/u apt, he did do the labs, he is to see Dr Goldman also, wants to get on a pill Tung Leon MD [address] [place] [address], [address] [address], [place], [address], [facility] [employer] 05/24/2023 10:43:28
[2025-03-28 09:19] LABS: Alanine Aminotransferase 22 U/L (6-50); Albumin Level 4.6 g/dL (3.5-5.1); Alkaline Phosphatase 74 U/L (38-126); Anion Gap 11 mmol/L (4-12); Aspartate Amino Transferase 38 U/L (17-59); Bilirubin,Total 1.1 mg/dL (0.2-1.3); Blood Urea Nitrogen 37 mg/dL (9-20); Carbon Dioxide 20 mmol/L (22-30); Chloride 108 mmol/L (98-107); Cholesterol 163 mg/dL (0-200); Estimated Glomerular Filt Rate > 60; Glucose 136 mg/dL (65-110); HDL Direct 34 mg/dL; Potassium 4.2 mmol/L (3.4-5.0); Sodium 139 mmol/L (137-145); Total Protein 7.7 g/dL (6.3-8.2); Triglycerides 100 mg/dL (<150)
[2025-03-28 09:29] LABS: LDL Cholesterol Direct 97 mg/dL
[2025-03-28 09:51] LABS: Hemoglobin A1C 6.3 % (<5.7)
== END 2025-03-28 08:04 | disposition home or self-care (01) ==
PROVIDERS: PCP Internal Medicine; Visit Provider Internal Medicine
DX: E78.5 Hyperlipidemia, unspecified (principal); I10 Essential (primary) hypertension; E11.9 Type 2 diabetes mellitus without complications
CPT/HCPCS: 36415; 80053; 80061; 83036

== ENCOUNTER 2025-08-05 09:39 | Outpatient (CLI) | payer MEDICARE, SELFPAY ==
[2025-08-05 10:34] LABS: Hemoglobin A1C 6.3 % (<5.7)
--- OUTSIDE RECORDS SUMMARY | 2025-08-05 10:40 | XMS_ITS | Clinical Summary ---
Author Organization [facility] Ray Angel Address [address] [place] [address] Care Team Providers Care Talking Books Library Clerk Name Role Phone Unavailable Primary Care Provider [...] (GLUCOSE METER, DISP & STRIPS MISC) by [facility].(Non-Drug; Combo Route) route. Active empagliflozin (Jardiance) 25 [...] 1,000 Units by mouth daily. Active omega 4-esz-vsx-fish oil 360 mg-108 mg- 180 mg-1,200 mg [...] Spasm. 90 Tablet 2 08/16/2024 12:07 PM PROGRAMMING SPECIALIST 4 Active Additional Information Patient not taking.Reported on 02/18/2025 sennosides (SENOKOT) 8.6 mg tablet Take 1 Tablet (8.6 mg) by mouth 2 times daily as needed for Constipation. 20 Tablet 08/16/2024 12:07 PM PROGRAMMING SPECIALIST 4 Active naloxone (NARCAN) 4 mg/spray [place], Non-Aerosol EMERGENCY USE ONLY: Administer 1 spray [...] Encounters Date Type Department Care Team Description 06/10/2025 External Device Data [facility] ABSTRACTION Provider, Abstract 06/10/2025 External Device Data [facility] ABSTRACTION Provider, Abstract 05/27/2025 External Device Data [facility] ABSTRACTION Provider, Abstract 05/20/2025 External Device Data [facility] ABSTRACTION Provider, Abstract from Last 3 Months Family History Relation [...] CDT Oxygen Saturation 98% 11/19/2024 10:36 AM PROGRAMMING SPECIALIST Inhaled Oxygen Concentration - - Weight 88 kg (194 lb) 02/18/2025 10:10 AM CDT Height 182.9 cm (6') 02/18/2025 10:10 AM CDT Body Mass Index 26.31 02/18/2025 10:10 AM CDT Plan of Treatment Upcoming Encounters Date Type Department Care Team (Late st Contact Info) Description 08/19/2025 10:00 AM PROGRAMMING SPECIALIST Office Visit [facility] [address] [facility] [address] [place] [address] Lauri Tsai NP [address] [facility] [address] [place] [address] Health Maintenance Due Date Last Done Comments DIABETES ANNUAL FOOT EXAM 1968 DIABETES MICROALBUMIN ANNUAL SCREEN 1968 LDL CHOLESTEROL ANNUAL 1968 ZOSTER VACCINE (2 of 3) 09/05/2013 07/11/2013 DIABETES ANNUAL RETINAL EXAM 06/30/2022 06/30/2021 RSV VACCINE (60+ or ) (1 - 1-dose 75+ series) 2024 DIABETES HBA1C Q 6 MONTHS 02/06/20252023, 07/12/2023, 04/20/2023, Additional history exists INFLUENZA VACCINE (#1) 2025 , 07/15/2020, 07/22/2019, Additional history exists DTAP/TDAP/TD VACCINES (2 - T d or Tdap) 09/21/2027 09/21/2017 PNEUMOCOCCAL VACCINE 50+ YEARS Completed 09/21/2018 , 09/21/2017 COLORECTAL SCREENING Discontinued 08/25/2023, 05/07/2020, 05/07/2020, Additional history exists Colorectal Cancer Screening Discontinued FIT-DNA Q 3 years Discontinued FIT/FOBT Q 1 year Discontinued Flex Sig/CT Colonography Q 5 years Discontinued Medical Devices Implanted Type Area Crack Off Person Device Identifier Shelf Expiration Date Model / Serial / Lot Hemostatic Surgiflo 8ml W/ Thrombin 2994 - [id number] Implanted:Qty : 1 on 08/15/2024 by Benito Mckeon MD at [facility] Hemostatic N/A: Spine Lumbar [employer] [id number] 10/08/2025 2994 / / [id number] Shank 6.5 X 45 Ats Thread Implanted:Qty : 4 on 08/15/2024 by Benito Mckeon MD at [facility] Other N/A: Spine Lumbar [employer]- NEUROSURGERY [id number] / 08.15.24 / [id number] Description:1X ADD LG Chirag Cdh Ti Cp4 5.5x40mm Crvd [id number] - [id number] Implanted:Qty : 2 on 08/15/2024 by Benito Mckeon MD at [facility] Chirag N/A: Spine Lumbar [employer]- SOFAMOR DANEK [id number] / / Description:NO Load informat ion available Mas Set Screw 4pk Implanted:Qty : 1 on 08/15/2024 by Benito Mckeon MD at [facility] Screw N/A: Spine Lumbar [employer]- SOFAMOR [employer]ANEK 07/31/2028 [id number] / / [id number] Description:1X ADD LG Graft Alloflex [id number] Strip [id number] - [id number] Implanted:Qty : 1 on 08/15/2024 by Benito Mckeon MD at [facility] Tissue N/A: Spine Lumbar [employer] [id number] 04/16/2028 [id number] / [id number] / Description:BR REQ#[id number] DJ Graft Alloflex [id number] Strip [id number] - [id number] Implanted:Qty : 1 on 08/15/2024 by Benito Mckeon MD at [facility] Tissue N/A: Spine Lumbar [employer] [id number] 08/13/2028 [id number] / [id number] / Description:BR REQ#[id number] DJ Procedures Procedure Name Priority Date/Time Associated Diagnosis Comments HEMOGLOBIN A1C Routine 08/09/2024 2:17 PM CDT Lumbar stenosis with neurogenic claudication Preoperative testing from Last 3 Months or Most Recently Relevant to Health Maintenance Results * (ABNORMAL) HEMOGLOBIN A1C (08/09/2024 2:17 PM CDT) HEMOGLOBIN A1C 6.5(H) <=5.6 % 08/09/2024 3:51 PM CDT [facility] EST. AVG GLUCOSE, A1C 140 mg/dL 08/09/2024 3:51 PM CDT [facility] Blood Venipuncture / Unknown 08/09/2024 2:17 PM CDT 08/09/2024 2:55 PM CDT Narrative [facility] - 08/09/2024 3:51 PM CDT HGB A1C INTERPRETATION NORMAL: <5.7% PRE-DIABETES: 5.7 - 6.4% DIABETES: 6.5% OR GREATER Benito Mckeon MD CHEMISTRY ORDERABLES Final Res ult [facility] CLIA# [id number] [address] [place] [address] from Last 3 Months or Most Recently Relevant to Health Maintenance Insurance MEDICARE PART A AND B [employer] MEDICARE SUPP AESSI MEDICARE PART A AND B AETNA MEDICARE SUPP AESSI RX bitmovin Medicare Part D Advance Directives For more information, please contact: [phone] * Full Code (Latest Code Status on File) Date Activated Date Inactivated Comments 08/15/2024 7:26 PM 08/16/2024 2:59 PM
--- OUTSIDE RECORDS SUMMARY | 2025-08-05 10:40 | XMS_ITS | Clinical Summary ---
Author Organization [facility] Address [address] [place] [address] Care Team Providers Care Rim Buster Name Role Phone Tung Leon MD Primary Care Provider Source Comments [facility],non-owned Affiliates and Associated Physician Practices is amultiple site organization consisting of ambulatory clinics and hospital sitesin [place], [place], [place] and [place]. This disclosure is being madepursuant to the Care Everywhere program and may not contain all information available regarding this patient. Last updated 18.[facility] Allergies No known active allergies Medications * [...] 65 mg by mouth once daily Active Pender-3 Fatty Acids (fish oil) 1000 MG capsule [...] on file Legal Sex Male 5:23 PM TOP AND SEAT COVER FITTER Gender Identity Not on file Sexual Orientation Not on file Last Filed Vital Signs Vital Sign Reading Time Taken Comments Blood Pressure 141/84 09/22/2022 8:53 AM TOP AND SEAT COVER FITTER Pulse 63 09/22/2022 8:53 AM TOP AND SEAT COVER FITTER Temperature 36.4 C (97.6 F) 09/22/2022 8:53 AM TOP AND SEAT COVER FITTER Respiratory Rate 18 09/22/2022 8:53 AM TOP AND SEAT COVER FITTER Oxygen Saturation 100% 09/22/2022 8:53 AM TOP AND SEAT COVER FITTER Inhaled Oxygen Concentration - - Weight 89.4 kg (197 lb) 09/22/2022 8:53 AM TOP AND SEAT COVER FITTER Height 186.7 cm (6' 1.5) 11/05/2018 1:24 PM TOP AND SEAT COVER FITTER Body Mass Index 25.64 11/05/2018 1:24 PM TOP AND SEAT COVER FITTER Plan of Treatment Health Maintenance Due Date Last Done Comments MEDICARE AWV 12 MONTHS 1950 HEPATITIS C SCREENING 04/25/1967 DTAP/TDAP/TD VACCINES (1 - Tdap) 1968 PNEUMOCOCCAL VACCINE 50+ (1 of 1 - PCV) 1999 ZOSTER VACCINE (1 of 2) 1999 Respiratory Syncytial Virus (RSV) Vaccine Pt: or over 60 yrs (1 - 1-dose 75+ series) 2024 DEPRESSION SCREENING 10/09/2024 COVID-19 VACCINE (2 - 2024- season) 2025 09/03/2021 INFLUENZA VACCINE (#1) 2025 0, 07/13/2018, 07/28/2017, Additional history exists HEPATITIS B [...] age to complete this topic Insurance MEDICARE AET MEDICARE AETNA MEDICARE Care Teams Rim Buster Relationship Specialty Start Date End Date Tung Leon MD [address] [place] [address] PCP - General 11/05/18
--- OUTSIDE RECORDS SUMMARY | 2025-08-05 10:41 | XMS_ITS | Patient Health Record ---
Author Organization [facility] [employer] Address [address] [place] [address] Care Team Providers Care Fabric Cutter Name Role Phone Chin Singleton Unavailable [phone] Reason For Referral No Information Medications Medication SIG (Take, Route, Frequency, Duration) Notes Start Date End Date Status ARIPiprazole 5 MG Tablet Oral 05/23/2019 Active Labetalol HCl 200 MG Tablet Oral 05/23/2019 Active hydroCHLOROthiazide 12.5 MG Tablet Oral 05/23/2019 Active Azithromycin 250 MG Tablet Oral 05/23/2019 Active Meloxicam 7.5 MG Tablet Oral 05/23/2019 Active Mobic *Pick strength-form from [facility] for eRX* 05/23/2019 Active DULoxetine HCl 60 MG Capsule Delayed Release Particles Oral 05/23/2019 Active Escitalopram Oxalate 5 MG Tablet Oral 05/23/2019 Active Ezetimibe 10 MG Tablet Oral 05/23/2019 Active traMADol HCl 50 MG Tablet Oral 05/23/2019 Active HYDROcodone-Acetaminophen 5-325 MG Tablet Oral 05/23/2019 Active GaviLyte-G 236 GM Solution Reconstituted Oral *Reorder from [facility] for eRx and Interaction Alerts* 05/23/2019 Active Fenofibrate 145 MG Tablet Oral 05/23/2019 Active Immunizations Vaccine Route Administration Date Status Comme nts Influenza virus vaccine, quadrivalent (IIV4), split virus, 0.25 mL dosage Unknown 11/22/2016 Administered Influenza, high dose seasonal Unknown 09/01/2015 Admini stered Influenza, high dose seasonal Unknown 07/28/2017 Admini stered Influenza, high dose seasonal Unknown 07/13/2018 Admini stered Influenza, seasonal, injecta ble, preservative free, 3 yrs and above Unknown 09/09/2014 Administered Pneumococcal conjugate PCV 13 Unknown 09/21/2017 Admini stered Pneumococcal polysaccharide PPV23 Unknown 09/21/2018 Ad ministered Td (adult), adsorbed Unknown 09/21/2017 Administered Zoster Unknown 07/11/2013 Administered Social History Social History Additional Details Category Social Info Options Details Migrated Social History Migrated Social History Alcohol Intake: Heavy 08/11/2020,Tobacco Years: Former smoker 08/11/2020,Smoking Status: 10 08/11/2020 Plan Of Treatment No Information Insurance Providers Payer Name Payer Address Payer Phone Subscriber Number Group Number Insured Name Patient Relationship to Insured Coverage Start Date Coverage End Date Medicare-De Medicare [address] [place] [phone] [id number] BUSHRA DUNN Self - patient is the insured [email or web address] Medicare Supplement [address] [address] [place] [address] [id number] BUSHRA DUNN Self - patient is the insured Medical (General) History Surgical History Surgery Date(Month/Year) Xcapsl ctrc rmvl cplx wo ecp ([id number])
--- OUTSIDE RECORDS SUMMARY | 2025-08-05 10:41 | XMS_ITS | Clinical Summary ---
Author Organization [facility] Address [address] [place] [id number] Care Team Providers Care Transmitter Supervisor Name Role Phone Leandro Anguiano MD Primary Care Provider Social History Tobacco Use Types Packs/Day Years Used Date Smoking Tobacco: Never Assessed Sex and Gender Information Value Date Recorded Sex Assigned at Male 04/09/2025 4:08 PM CDT Legal Sex Male 4:23 PM CDT Gender Identity Not on file Sexual Orientation Not on file Plan of Treatment Health Maintenance Due Date Last Done Comments Kidney Health Evaluation 1950 Lipid Panel 1949 Diabetes: Retinopathy Eye Exam 1967 Hepatitis C 1967 Zoster Vaccines (2 of 3) 09/05/2013 07/11/2013 Annual Medicare Wellness Visit 2014 RSV Immunization or 60+ Years (1 - 1-dose 75+ series) 2024 Hemoglobin A1C 02/06/2025 08/09/2024 COVID-19 Vaccine ( season) 2025 09/03/2021, 12/27/2020, 12/06/2020 Influenza Adult (#1) 2025 07/15/2020, 07/13/2018, 07/28/2017, Additional history exists DTaP, Tdap and Td Vaccines (2 - Td or Tdap) 09/21/2027 09/21/2017, 09/21/2017 Pneumococcal Vaccine: 50+ Years Completed 09/21/2018, 09/21/2017 Hepatitis A Vaccines Aged Out No long er eligible based on patient's age to complete this topic Meningococcal B Vaccine Aged Out No l onger eligible based on patient's age to complete this topic Meningococcal Vaccine Aged Out No king spencer eligible based on patient's age to complete this topic RSV Immunizations Under 20 Months Aged Out No longer eligible based on patient's age to complete this topic Insurance MEDICARE Care Teams Transmitter Supervisor Relationship Specialty Start Date End Date Leandro Anguiano MD [address] [place] [id number] PCP - General INTERNAL MEDICINE 04/03/25
[2025-08-05 10:45] LABS: Alanine Aminotransferase 21 U/L (6-50); Albumin Level 4.3 g/dL (3.5-5.1); Alkaline Phosphatase 81 U/L (38-126); Anion Gap 8 mmol/L (4-12); Aspartate Amino Transferase 35 U/L (17-59); Bilirubin,Total 0.9 mg/dL (0.2-1.3); Blood Urea Nitrogen 19 mg/dL (9-20); Calcium 9.5 mg/dL (8.4-10.2); Carbon Dioxide 26 mmol/L (22-30); Chloride 106 mmol/L (98-107); Cholesterol 130 mg/dL (0-200); Estimated Glomerular Filt Rate > 60; Glucose 95 mg/dL (65-110); HDL Direct 35 mg/dL; Potassium 4.3 mmol/L (3.4-5.0); Sodium 140 mmol/L (137-145); Total Protein 7.4 g/dL (6.3-8.2); Triglycerides 121 mg/dL (<150)
[2025-08-05 10:58] LABS: Free T4 Free Thyroxine 1.18 ng/dL (0.78-2.19)
[2025-08-05 11:20] LABS: Prostate Specific Antigen 0.8 ng/mL (< OR = 4.0); Thyroid Stimulating Hormone 1.180 uIU/mL (0.465-4.680)
== END 2025-08-05 09:40 | disposition home or self-care (01) ==
PROVIDERS: PCP Internal Medicine; Visit Provider Internal Medicine
DX: Z13.29 Encounter for screening for other suspected endocrine disorder (principal); Z12.5 Encounter for screening for malignant neoplasm of prostate; I10 Essential (primary) hypertension; E11.9 Type 2 diabetes mellitus without complications; E78.5 Hyperlipidemia, unspecified; Z79.899 Other long term (current) drug therapy
CPT/HCPCS: 36415; 80053; 80061; 83036; 84153; 84439; 84443; G0103